=== PATIENT | female | born 1935 | race Caucasian/White ===

== ENCOUNTER 2016-09-27 20:43 | Observation (INO) | payer MEDICARE ==
[~2016-09-27] VITALS: Ht 157.5 cm; Wt 52.0 kg
[~2016-09-27 20:43] MED LIST: ASPI81 PO; CRES10TA PO; FLUO-1 PO; IRON28TA2 PO; ISOS10TA35 PO; NOVONP2 SQ; PROP60CA PO; PROT40IN PO; SUCR1TAB PO; VITA400C28 PO; VITA500T49 PO
[2016-09-27 20:44] VITALS: BP 180/87; PULSE 65; RESP 16; TEMP 97.9; O2SAT 99
[2016-09-27 20:50] VITALS: BP 188/86; PULSE 64; RESP 18; O2SAT 97
[2016-09-27] MEDS ORDERED: SODIUM CHLORIDE 0.9% FLUSH 5 ML FLUSH IVF PRN (21:15)
--- NOTE | 2016-09-27 21:47 | RADRPT ---
EXAM DATE/TIME: 09/27/2016 21:30 [facility] COMPARISON: CHEST SINGLE AP, August 24, 2012, 11:34. INDICATIONS : Syncopal episode. Patient fell. MEDICAL HISTORY : None. SURGICAL HISTORY : None. ENCOUNTER: Initial ACUITY: 1 day PAIN SCORE: 0/10 LOCATION: chest FINDINGS: A single view of the chest demonstrates the lungs to be symmetrically aerated without evidence of mas s, infiltrate or effusion. The cardiomediastinal contours are unremarkable. Osseous structures are intact. CONCLUSION: No acute disease. Navarro Mon MD on September 27, 2016 at 21:46 Board Certified Radiologist. This report was verified electronically.
--- NOTE | 2016-09-27 21:48 | RADRPT ---
EXAM DATE/TIME: 09/27/2016 21:31 [facility] COMPARISON: No previous studies available for comparison. INDICATIONS : Syncopal episode. Patient complains of pelvic pain. MEDICAL HISTORY : None. SURGICAL HISTORY : None. ENCOUNTER: Initial ACUITY: 1 day PAIN SCORE: 7/10 LOCATION: Pelvis FINDINGS: There is osteoarthritis of both hips left greater right. Aortic and iliac artery calcifications are s een. Diffuse decreased bone density. No obvious fractures. CONCLUSION: No acute disease. Navarro Mon MD on September 27, 2016 at 21:46 Board Certified Radiologist. This report was verified electronically.
[2016-09-27 22:02] LABS: AUTOMATED NEUTROPHIL # 4.9 TH/MM3 (1.8-7.7); BASOPHIL # 0.1 TH/MM3 (0-0.2); BASOPHIL % 0.8 % (0.0-2.0); EOSINOPHIL # 0.4 TH/MM3 (0-0.4); EOSINOPHIL % 5.2 % (0.0-4.0); HEMATOCRIT 39.5 % (35.0-46.0); HEMO FLAGS DIFF FINAL; LYMPH % 18.2 % (9.0-44.0); LYMPHOCYTE # 1.3 TH/MM3 (1.0-4.8); MEAN CELL VOLUME 92.6 FL (80.0-100.0); MEAN CORPUSCULAR HEMOGLOBIN 31.2 PG (27.0-34.0); MEAN CORPUSCULAR HGB CONC 33.7 % (32.0-36.0); MONO % 7.3 % (0.0-8.0); NEUT % 68.5 % (16.0-70.0); PLATELET COUNT 198 TH/MM3 (150-450); RED BLOOD COUNT 4.27 MIL/MM3 (4.00-5.30); RED CELL DISTRIBUTION WIDTH 13.4 % (11.6-17.2); WHITE BLOOD COUNT 7.2 TH/MM3 (4.0-11.0)
--- NOTE | 2016-09-27 22:05 | RADRPT ---
EXAM DATE/TIME: 09/27/2016 21:47 [facility] COMPARISON: CT BRAIN W/O CONTRAST, August 24, 2012, 14:24. INDICATIONS : Trauma; fall. RADIATION DOSE: 56.35 CTDIvol (mGy) MEDICAL HISTORY : Cerebrovascular disease. Cardiovascular disease Renal failure, chronic.Hypertension. Diabetes. SURGICAL HISTORY : Cholecystectomy. ENCOUNTER: Initial ACUITY: 1 day PAIN SCALE: 0/10 LOCATION: neck TECHNIQUE: Multiple contiguous axial images were obtained of the head. Using automated exposure control and adj ustment of the mA and/or kV according to patient size, radiation dose was kept as low as reasonably a chievable to obtain optimal diagnostic quality images. FINDINGS: There is mild volume loss. No evidence of acute infarct, hemorrhage, or mass. No fractures are seen. CONCLUSION: No acute disease. Navarro Mon MD on September 27, 2016 at 22:03 Board Certified Radiologist. This report was verified electronically.
--- NOTE | 2016-09-27 22:11 | RADRPT ---
EXAM DATE/TIME: 09/27/2016 21:47 [facility] COMPARISON: No previous studies available for comparison. INDICATIONS : Trauma; fall. RADIATION DOSE: 32.26 CTDIvol (mGy) MEDICAL HISTORY : Cerebrovascular disease. Cardiovascular disease Renal failure, chronic.Hypertension. Diabetes. SURGICAL HISTORY : Cholecystectomy. ENCOUNTER: Initial ACUITY: 1 day PAIN SCALE: 0/10 LOCATION: cranial TECHNIQUE: Volumetric scanning of the cervical spine was performed. Multiplanar reconstructions in the sagittal, coronal and oblique axial planes were performed. Using automated exposure control and adjustment o f the mA and/or kV according to patient size, radiation dose was kept as low as reasonably achievable to obtain optimal diagnostic quality images. FINDINGS: Slight anterolisthesis of C7 on T1. Multilevel facet hypertrophy and uncovertebral hypertrophy. No co mpression deformity. Odontoid process is intact. There is multilevel osteophytosis and severe disc sp fanny narrowing at C3-4, moderate disc space narrowing at C5 and severe disc space narrowing at C6-7 no reema. Mild multilevel endplate sclerosis. No fractures are seen. At C4-5 there is severe foraminal blake nosis bilaterally right greater than left with moderate canal narrowing. Mild foraminal narrowing at C5-6 and C6-7 bilaterally. Bilateral thyroid nodules are noted. CONCLUSION: Multilevel degenerative changes without evidence for acute fracture. Thyroid nodules. Navarro Mon MD on September 27, 2016 at 22:07 Board Certified Radiologist. This report was verified electronically.
[2016-09-27 22:14] LABS: APTT (PATIENT) 23.6 SEC (24.3-30.1); INTERNATIONAL NORMALIZED RATIO 0.9 RATIO
[2016-09-27] MEDS ORDERED: LISI10TA3 PO (22:25)
[2016-09-27] MEDS ORDERED: ISOS30TA3 PO (22:25)
[2016-09-27] MEDS ORDERED: PANT40TA3 PO (22:25)
[2016-09-27] MEDS ORDERED: HYDR-3583 PO (22:25)
[2016-09-27] MEDS ORDERED: FLUO40CA PO (22:25)
[2016-09-27] MEDS ORDERED: ERGO2000 PO (22:25)
[2016-09-27] MEDS ORDERED: SUCR1TAB PO (22:25)
[2016-09-27] MEDS ORDERED: TEMA15CA PO (22:25)
[2016-09-27] MEDS ORDERED: ASPI1TAB69 PO (22:26)
[2016-09-27 22:34] LABS: BLOOD, URINE NEG (NEG); GLUCOSE,URINE TRACE mg/dL (NEG); KETONE, URINE NEG (NEG); PH, URINE 5.5 (5.0-8.5); URINE COLOR COLORLESS (YELLW/STRAW)
[2016-09-27 22:40] LABS: ALKALINE PHOSPHATASE 73 U/L (45-117); ALT (GPT) 23 U/L (10-53); ANION GAP 14 MEQ/L (5-15); AST (GOT) 25 U/L (15-37); BICARBONATE 21.3 MEQ/L (21.0-32.0); BLOOD UREA NITROGEN 22 MG/DL (7-18); CHLORIDE 102 MEQ/L (98-107); CREATINE KINASE 138 U/L (26-192); GLOMERULAR FILTRATION RATE 22 ML/MIN (>89); MAGNESIUM 2.3 MG/DL (1.5-2.5); POTASSIUM 4.4 MEQ/L (3.5-5.1); SODIUM (NA) 137 MEQ/L (136-145); TOTAL BILIRUBIN ADULT 0.3 MG/DL (0.2-1.0)
[2016-09-27 22:53] LABS: CKMB 2.7 NG/ML (0.5-3.6)
[2016-09-27 22:59] LABS: NITRITE,URINE POS (NEG)
[2016-09-27 23:01] LABS: BACTERIA, URINE MANY /hpf; COMMENT (UR) CULTURE INDICATED; CULTURE IF INDICATED CULTURE INDICATED; SQUAMOUS EPITHELIAL CELL URINE 0-5 /hpf (0-5); WBC, URINE 0-2 /hpf (0-5)
--- NOTE | 2016-09-27 23:06 | PD ---
HPI Chief Complaint: Fall Time Seen by Provider: 21:14 Travel History International Travel<30 days: No Contact w/Intl Traveler<30days: No Traveled to known affect area: No History of Present Illness HPI 80 y/o female presents status post syncopal episode. Her son have been outside for about 20 minutes when he came and found her on the ground. The patient does not recall any of the episode. She denies any specific pain. History is limited given patient does not recall episode and it was unwitnessed. PFSH Past Medical History Hx Anticoagulant Therapy: Yes (ASPIRIN) Arthritis: No Anxiety: Yes Depression: Yes Heart Rhythm Problems: No Cancer: No Cardiovascular Problems: Yes High Cholesterol: Yes Chest Pain: Yes Congestive Heart Failure: No Cerebrovascular Accident: Yes Diabetes: Yes (INSULIN) Patient Takes Glucophage: No Diminished Hearing: No Endocrine: Yes Gastrointestinal Disorders: Yes Genitourinary: Yes Headaches: Yes Hypertension: Yes Musculoskeletal: No Neurologic: No Psychiatric: Yes Reproductive: No Respiratory: No Migraines: No Pneumonia: Yes Renal Failure: Yes Seizures: No Thyroid Disease: No Ulcer: Yes Tetanus Vaccination: Unknown Influenza Vaccination: No ?: Not Menopausal: Yes : 4 Para: 3 Miscarriage: 1 Past Surgical History Abdominal Surgery: Yes (STOMACH BYPASS SURGERY) Cardiac Surgery: Yes (STENT TO HEART MAY 2012) Cholecystectomy: Yes Ear Surgery: No Endocrine Surgery: No Eye Surgery: No Genitourinary Surgery: No Gynecologic Surgery: No Oral Surgery: No Thoracic Surgery: No Other Surgery: Yes (HEART CATH WITH STENT PLACED, HERNIA (RIGHT) REPAIR) Social History Alcohol Use: Yes (DAILY) Tobacco Use: No Substance Use: No Allergies-Medications (Allergen,Severity, Reaction): Coded Allergies: Codeine (Verified Allergy, Severe, "MAKES HER MEAN", 09/27/16) E-Mycin (Verified Allergy, Severe, Itching, 09/27/16) Morphine (Verified Allergy, Severe, ITCHING, 09/27/16) Reported Meds & Prescriptions Reported Meds & Active Scripts Active Reported Lantus Inj (Insulin Glargine) 1,000 Unit/10 Ml Vial 5 Units SQ HS Lantus Inj (Insulin Glargine) 1,000 Unit/10 Ml Vial 5 Units SQ AC BREAKFAST Aspirin 81 Mg Tabdr 81 Mg PO DAILY Lisinopril 10 Mg Tab 10 Mg PO DAILY Hydrocodone-Acetaminophen 10-325 mg Tab 1 Tab PO BID PRN Temazepam 15 Mg Cap 15 Mg PO HS PRN Pantoprazole (Pantoprazole Sodium) 40 Mg Tab 40 Mg PO DAILY Vitamin D2 (Ergocalciferol) 2,000 Unit Tab 50,000 Units PO WEEKLY Isosorbide Mononitrate ER (Isosorbide Mononitrate) 30 Mg Maldonado 30 Mg PO DAILY Fluoxetine (Fluoxetine HCl) 40 Mg Cap 40 Cap PO DAILY Sucralfate 1 Gm Tab 1 Gm PO BID on empty stomach Review of Systems Except as stated in HPI: all other systems reviewed are Neg Physical Exam Narrative General: 80 y/o patient in no apparent distress Skin: Warm and dry NECK: Trachea midline Cardiovascular: Regular rate and rhythm Respiratory: Normal respiratory effort noted, clear to auscultation bilaterally Abdomen: soft, nontender, nondistended Extremities: No pain over main joints Neuro: awake, moves all extremities, clear speech Data Data Last Documented VS Vital Signs Date Time Temp Pulse Resp B/P Pulse Ox O2 Delivery O2 Flow Rate FiO2 09/27/16 20:50 64 09/27/16 20:50 18 188/86 97 Room Air 09/27/16 20:44 97.9 Orders Electrocardiogram (09/27/16 21:13) Complete Blood Count With Diff (09/27/16 21:13) Comprehensive Metabolic Panel (09/27/16 21:13) Magnesium (Mg) (09/27/16 21:13) Ckmb (Isoenzyme) Profile (09/27/16 21:13) Troponin I (09/27/16 21:13) Act Partial Throm Time (Ptt) (09/27/16 21:13) Prothrombin Time / Inr (Pt) (09/27/16 21:13) Urinalysis - C+S If Indicated (09/27/16 21:13) Chest, Single Ap (09/27/16 21:13) Ecg Monitoring (09/27/16 21:13) Iv Access Insert/Monitor (09/27/16 21:13) Oximetry (09/27/16 21:13) Sodium Chloride 0.9% Flush (Ns Flush) (09/27/16 21:15) Pelvis, Ap Only (Routine) (09/27/16 21:20) Ct Brain W/O Iv Contrast(Rout) (09/27/16 21:20) Ct Cerv Spine W/O Contrast (09/27/16 21:20) CKMB (09/27/16 21:30) CKMB% (09/27/16 21:30) Urine Culture (09/27/16 21:30) Ceftriaxone Inj (Rocephin Inj) (09/27/16 23:15) Admit Order (Ed Use Only) (09/27/16 23:37) Labs Laboratory Tests Test 09/27/16 21:30 White Blood Count 7.2 TH/MM3 Red Blood Count 4.27 MIL/MM3 Hemoglobin 13.3 GM/DL Hematocrit 39.5 % Mean Corpuscular Volume 92.6 FL Mean Corpuscular Hemoglobin 31.2 PG Mean Corpuscular Hemoglobin 33.7 % Concent Red Cell Distribution Width 13.4 % Platelet Count 198 TH/MM3 Mean Platelet Volume 8.6 FL Neutrophils (%) (Auto) 68.5 % Lymphocytes (%) (Auto) 18.2 % Monocytes (%) (Auto) 7.3 % Eosinophils (%) (Auto) 5.2 % Basophils (%) (Auto) 0.8 % Neutrophils # (Auto) 4.9 TH/MM3 Lymphocytes # (Auto) 1.3 TH/MM3 Monocytes # (Auto) 0.5 TH/MM3 Eosinophils # (Auto) 0.4 TH/MM3 Basophils # (Auto) 0.1 TH/MM3 CBC Comment DIFF FINAL Differential Comment Prothrombin Time 10.0 SEC Prothromb Time International 0.9 RATIO Ratio Activated Partial 23.6 SEC Thromboplast Time Urine Color COLORLESS Urine Turbidity CLEAR Urine pH 5.5 Urine Specific [place] 1.004 Urine Protein NEG mg/dL Urine Glucose (UA) TRACE mg/dL Urine Ketones NEG mg/dL Urine Occult Blood NEG Urine Nitrite POS Urine Bilirubin NEG Urine Urobilinogen LESS THAN 2.0 MG/DL Urine Leukocyte Esterase NEG Urine WBC 0-2 /hpf Urine Squamous Epithelial 0-5 /hpf Cells Urine Bacteria MANY /hpf Microscopic Urinalysis Comment CULTURE INDICATED Sodium Level 137 MEQ/L Potassium Level 4.4 MEQ/L Chloride Level 102 MEQ/L Carbon Dioxide Level 21.3 MEQ/L Anion Gap 14 MEQ/L Blood Urea Nitrogen 22 MG/DL Creatinine 2.17 MG/DL Estimat Glomerular Filtration 22 ML/MIN Rate Random Glucose 217 MG/DL Calcium Level 8.0 MG/DL Magnesium Level 2.3 MG/DL Total Bilirubin 0.3 MG/DL Aspartate Amino Transf 25 U/L (AST/SGOT) Alanine Aminotransferase 23 U/L (ALT/SGPT) Alkaline Phosphatase 73 U/L Total Creatine Kinase 138 U/L Creatine Kinase MB 2.7 NG/ML Troponin I LESS THAN 0.02 NG/ML Total Protein 6.3 GM/DL Albumin 3.2 GM/DL MDM Medical Decision Making Medical Screen Exam Complete: Yes Emergency Medical Condition: Yes Medical Record Reviewed: Yes (past history confirmed) Interpretation(s) CBC & BMP Diagram 09/27/16 21:30 Last 24 hours Impressions Pelvis X-Ray 09/27/[id number] Signed Impressions: Service Date/Time: Tuesday, September 27, 2016 21:31 - CONCLUSION: No acute disease. Navarro Mon MD Head CT 09/27/[id number] Signed Impressions: Service Date/Time: Tuesday, September 27, 2016 21:47 - CONCLUSION: No acute disease. Navarro Mon MD Cervical Spine CT [id number]/27/[id number] Signed Impressions: Service Date/Time: Tuesday, September 27, 2016 21:47 - CONCLUSION: Multilevel degenerative changes without evidence for acute fracture. Thyroid nodules. Navarro Mon MD Chest X-Ray 09/27/[id number] Signed Impressions: Service Date/Time: Tuesday, September 27, 2016 21:30 - CONCLUSION: No acute disease. Navarro Mon MD ua with uti Differential Diagnosis Fracture, strain, sprain, anemia, vasovagal.... Narrative Course Will check blood work, imaging and reevaluate ed workup with possible uti, will dose with rocephin and admit for further workup Physician Communication Physician Communication [facility] states to admit under dr teixeira Diagnosis Primary Impression: Syncope Qualified Code: R55 - Syncope, unspecified syncope type Additional Impression: UTI (urinary tract infection) Qualified Code: N39.0 - Urinary tract infection without hematuria, site unspecified Admitting Information Admitting Physician Requests: Laura Akhtar MD Sep 27, 2016 23:06
[2016-09-27] MEDS ORDERED: cefTRIAXone INJ 1,000 MG in SODIUM CHLORIDE 0.9% INJ 100 ML IV ONE (23:15)
[2016-09-27] MEDS ORDERED: LANTUS2P SQ ×2 (23:15→23:16)
[2016-09-27 23:45] VITALS: O2SAT 99
[2016-09-27 23:48] VITALS: BP 127/57; PULSE 63; RESP 18; O2SAT 100
[2016-09-28] VITALS (10 sets, daily range): BP systolic 133–197; BP diastolic 63–102; PULSE 57–70; RESP 17–18; TEMP 97.4–98.7; O2SAT 95–98
[2016-09-28] MEDS ORDERED: GLUCAGON 1 MG/ML VIAL OTHER PRN
[2016-09-28] MEDS ORDERED: SODIUM CHLORIDE 0.9% FLUSH 5 ML FLUSH IV PRN
[2016-09-28] MEDS ORDERED: DEXTROSE 50% IN WATER 50 ML VIAL(D50) IV PUSH PRN
[2016-09-28] MEDS: SODIUM CHLOR 0.9% 1000 ML INJ 1,000 ML IV SCH ×2 (02:06→23:17)
[2016-09-28 06:15] LABS: BICARBONATE 25.9 MEQ/L (21.0-32.0); POTASSIUM 4.3 MEQ/L (3.5-5.1)
[2016-09-28] MEDS: INSULIN ASPART SUPPLEMENTAL SCALE SQ SCH ×4 (06:34→21:24)
[2016-09-28] MEDS: ISOSORBIDE MONONITRATE 30 MG TAB PO SCH (06:34)
[2016-09-28] MEDS: SUCRALFATE 1 GM TAB PO SCH ×2 (06:34→16:19)
[2016-09-28] MEDS: PANTOPRAZOLE SOD 40 MG DELAYED RELEASE TAB PO SCH (09:31)
[2016-09-28] MEDS: LISINOPRIL 10 MG TAB PO SCH (09:31)
[2016-09-28] MEDS: ASPIRIN EC 81 MG TABEC PO SCH (09:31)
[2016-09-28] MEDS: SODIUM CHLORIDE 0.9% FLUSH 5 ML FLUSH IV SCH ×2 (09:32→21:00)
[2016-09-28] MEDS: FLUoxetine HCL 20 MG CAP PO SCH (09:32)
--- NOTE | 2016-09-28 09:32 | RADRPT ---
EXAM DATE/TIME: 09/28/2016 08:24 [facility] COMPARISON: US CAROTID ARTERIES, August 24, 2012, 18:28. INDICATIONS : Syncope. MEDICAL HISTORY : Stroke. Hypercholesterolemia. Hypertension. Ulcer. Pneumonia. Diabetes. Liver disease. Renal failure. SURGICAL HISTORY : Coronary artery stent. Cholecystectomy. Hernia repair. ENCOUNTER: Subsequent ACUITY: 1 day PAIN SCORE: 4/10 LOCATION: Bilateral neck PEAK SYSTOLIC VELOCITIES (cm/sec): ICA/CCA RATIO: Right: 0.9 Left: 1.0 ICA: Right: 74 Left: 87 CCA: Right: 85 Left: 83 ECA: Right: 77 Left: 86 VERTEBRAL: Right: 55 antegrade Left: 18 antegrade Elevated flow velocities and ICA/CCA ratios have been found to correlate with increased degrees of vessel stenosis, calculated as percentage of diameter relative to a normal segment of distal ICA/CCA FINDINGS: RIGHT CAROTID: No significant stenosis is visualized. There is mild calcified and noncalcified plaque in the caroti d bulb. The waveforms are within normal limits. LEFT CAROTID: No significant stenosis is visualized. There is mild calcified and noncalcified plaque in the caroti d bulb. The waveforms are within normal limits. VERTEBRAL ARTERIES: Antegrade flow is seen in both vertebral arteries. MISCELLANEOUS: None. CONCLUSION: 1. Mild atherosclerotic disease in the carotid bulbs. However, no significant stenosis is identified within either internal carotid artery. 2. There is antegrade flow within both vertebral arteries. Troy Ibarra MD on September 28, 2016 at 9:29 Board Certified Radiologist. This report was verified electronically.
[2016-09-28] MEDS ORDERED: cloNIDine HCL 0.1 MG TAB PO PRN (09:45)
--- NOTE | 2016-09-28 10:35 | MH ---
DATE OF ADMISSION: 09/27/2016 CHIEF COMPLAINT Dizziness, status post fall. HISTORY OF PRESENT ILLNESS The patient is a very pleasant 80-year-old female who presented to the ER status post syncopal episode. Her son had been outside for about 20 minutes when he came and found her on the ground. The patient does not recall any of the episodes. Per patient she has been feeling dizzy since the first or the second week of July when she had an episode of headache starting in the back and radiating to the front. Denies any CP/SOB/NVD. PAST MEDICAL HISTORY 1. Anxiety. 2. Hyperlipidemia. 3. History of CVA. 4. Insulin dependent diabetes mellitus. 5. Headaches. 6. Hypertension. 7. Coronary artery disease, status post stent in May of 2012. PAST SURGICAL HISTORY 1. Stomach bypass surgery. 2. Cardiac stent in May 2012. 3. Cholecystectomy. 4. Right hernia repair. SOCIAL HISTORY Drinks alcohol everyday. Denies any tobacco or substance use. ALLERGIES CODEINE, ERYTHROMYCIN, MORPHINE. MEDICATION Current medications: 1. Lantus. 2. Aspirin. 3. Lisinopril. 4. Hydrocodone/acetamenophen. 5. Temazepam. 6. Pantoprazole. 7. Vitamin D2. 8. Isosorbide mononitrate ER. 9. Fluoxetine. 10. Sucralfate. REVIEW OF SYSTEMS Positive for headache, dizziness. Denies any chest pain or shortness of breath. Denies any blurring of vision or palpitations. Denies any abdominal pain, nausea, vomiting or diarrhea. Denies any focal deficits. PHYSICAL EXAMINATION GENERAL: A 80-year-old white female who is lying in bed, in no apparent distress. SKIN: Warm and dry. NECK: Supple. Trachea is midline. No JVD. No carotid bruit. CARDIOVASCULAR: S1, S2. Heart is regular rate and rhythm. No murmur, no gallop. RESPIRATORY: Normal respiratory effort noted. Clear to auscultation bilaterally. No wheezes or rales. ABDOMEN: Soft, nontender, nondistended. Bowel sounds heard in all four quadrants. No organomegaly. EXTREMITIES: No cyanosis/congestion or edema. The patient is able to move all the extremities. NEURO: Awake and alert, clear speech. Cranial nerves II-XII grossly intact. No focal deficits. PSYCHIATRIC: Mood is appropriate. VITAL SIGNS: Blood pressure 168/78, pulse is 66, respirations are 18, pulse ox is 97% on room air. LABORATORY DATA WBC 7.2, hemoglobin 13.3, hematocrit 39.5, platelets 198,000. Urinalysis positive for nitrites, many bacteria, culture pending. Sodium 137, potassium 4.4, BUN 22, creatinine 2.17, AST 25, ALT 23, troponin-I less than 0.02. IMAGING STUDIES X-ray of the pelvis shows no acute disease. CT of the head without contrast shows no acute disease. Her vital sign CT shows multilevel degenerative change without evidence of acute fracture. Chest x-ray shows no acute disease. PendinD echo and ultrasound of the carotids. DIAGNOSTIC IMPRESSION AND PLAN 1. Syncope. 2. Urinary tract infection. 3. Headaches. 4. Hypertension. 5. Insulin-dependent diabetes mellitus. 6. Generalized anxiety disorder. 7. Hyperlipidemia. 8. Gastroesophageal reflux disease. 9. Alcohol use beyond sensible limits. PLAN Will admit the patient under observation. Will start the patient on IV fluids. Will start the patient on Rocephin. Will check urine cultures. Will also check blood cultures. Will request a neurology consult. As she has a h/o coronary artery disease will request cardiology consult to rule out any cardiac etiology for her syncope. The patient has been advised to cutdown on her alcohol consumption. We will also check B12 levels and folate levels. Will monitor CBC and BMP closely. Will also check TSH and free T4. Will monitor the patient closely during the hospital stay. Further management depends upon the hospital course. Moises Marcus MD [facility]INIC[facility]a
[2016-09-28] MEDS ORDERED: LORazepam 2 MG/ML VIAL IV PUSH PRN (12:45)
[2016-09-28 12:53] LABS: BICARBONATE 28.9 MEQ/L (21.0-32.0); POTASSIUM 4.8 MEQ/L (3.5-5.1)
[2016-09-28 13:17] LABS: FREE T4 1.01 NG/DL (0.76-1.46)
--- NOTE | 2016-09-28 13:58 | MB ---
cc: DEBO HONG M.D. DATE OF CONSULTATION: 09/28/2016 REASON FOR CONSULTATION: Syncope. HISTORY OF PRESENT ILLNESS: Ms. Sierra is a very nice 80-year-old woman who had an episode of loss of consciousness yesterday. Her son came and found her on the ground after about 20 minutes. She is unsure for how long she was unconscious. Apparently the actual event was not witnessed so it is unclear as to whether or not she had tonic-clonic activity. Nonetheless, she had no warning signs. No chest pain or palpitations. When she came-to, she was very confused, does not recall any events thereafter and does not recall being brought to the emergency room. She does relate she drinks alcohol on a daily basis several beers a day and yesterday had three beers. Denies chest pain or palpitations. Never had any seizures in the past. PAST MEDICAL HISTORY: 1. She has a history of insulin-dependent diabetes. 2. History of stroke in the past. 3. Anxiety. 4. Stomach bypass surgery. 5. Cardiac stent in the past. 6. Cholecystectomy. SOCIAL HISTORY: She does drink alcohol daily. Does not smoke. ALLERGIES: 1. CODEINE. 2. E-MYCIN. 3. MORPHINE. MEDICINES AT HOME: 1. Lantus insulin. 2. Aspirin 81 milligrams daily. 3. Lisinopril. 4. Hydrocodone. 5. Temazepam. 6. Pantoprazole. 7. Vitamin D. 8. Fluoxetine. 9. Sucralfate. NEUROLOGICAL EXAMINATION: VITAL SIGNS: Blood pressure is 189/84 supine, standing 191/102, pulse is 69, respiratory rate is 18, temperature is 97 degrees. Higher cortical functions are normal. Cranial nerves II through XII are normal in detail. On motor exam, she has 5/5 strength of all groups. She has a mild resting tremor of the left arm. Reflexes are symmetric. IMAGING STUDIES: CT of the brain is unremarkable for age. CT cervical spine: Spondylosis but no fracture. Carotid ultrasound: No significant stenosis is identified. LABORATORY DATA: White count 7200, hemoglobin 13.3, hematocrit 39.5%, platelet count 198,000. Sodium is 145, potassium 4.3, chloride 111, CO2 25.9, the BUN is 20, creatinine 1.8, GFR is 27, glucose 100. TSH is pending. B12 pending. PT 10, INR 0.9, APTT 23.6. IMPRESSION: Episode of loss of consciousness. The history suggests that this might have been a seizure given the fact that she was confused thereafter and not recalling being brought to the emergency room that would suggest the possibility of a postictal state, rule out alcohol-related seizure. RECOMMENDATIONS: 1. We will obtain an MRI of the brain as well as an EEG for further evaluation. 2. Place her under seizure precautions. 3. I would not recommend anticonvulsant therapy unless the EEG were positive for epileptiform discharges. 4. I did parliamentary counsel the patient and advised her to strongly to DC alcohol. MD REGINA Infante/TOBI /12:37 PM /1:50 PM
--- NOTE | 2016-09-28 14:34 | EC ---
Study Study Date:09/28/2016 STUDY CONCLUSIONS SUMMARY LEFT VENTRICLE: The cavity size was normal. Wall thickness was normal. Systolic function was normal. The estimated ejection fraction was in the range of 55% to 60%. Wall motion was normal; there were no regional wall motion abnormalities. If LV function is below 40, please consider prescribing an ACEI or ARB or document rationale for non-use. PROCEDURE DATA STUDY STATUS: Elective. Procedure: Transthoracic echocardiography. Image quality was good. Scanning was performed from the parasternal, apical, and subcostal acoustic windows. Study completion: The patient tolerated the procedure well. Transthoracic echocardiography. M-mode, complete 2D, complete spectral Doppler, and color Doppler. Patient status: Inpatient. CARDIAC ANATOMY LEFT VENTRICLE: The cavity size was normal. Wall thickness was normal. Systolic function was normal. The estimated ejection fraction was in the range of 55% to 60%. Wall motion was normal; there were no regional wall motion abnormalities. AORTIC VALVE: Trileaflet; normal thickness leaflets. Doppler: Transvalvular velocity was within the normal range. There was no stenosis. No regurgitation. AORTA: Aortic root: The aortic root was normal in size. MITRAL VALVE: Structurally normal valve. Doppler: Transvalvular velocity was within the normal range. There was no evidence for stenosis. Trace regurgitation. LEFT ATRIUM: The atrium was normal in size. RIGHT VENTRICLE: The cavity size was normal. Wall thickness was normal. PULMONIC VALVE: Doppler: Transvalvular velocity was within the normal range. There was no evidence for stenosis. No regurgitation. TRICUSPID VALVE: Structurally normal valve. Doppler: Transvalvular velocity was within the normal range. No regurgitation. PULMONARY ARTERY: The main pulmonary artery was normal-sized. Systolic pressure was within the normal range. RIGHT ATRIUM: The atrium was normal in size. PERICARDIUM: There was no pericardial effusion. SYSTEMIC VEINS: Inferior vena cava: The vessel was normal in size. BASIC MEASUREMENTS ADULT NORMAL Left ventricle LV internal dimension, ED, chordal level, *35.9 mm 43-52 PLAX LV internal dimension, ES, chordal level, 27 mm 23-38 PLAX Fractional shortening, chordal level, PLAX *25 % >29 LV posterior wall thickness, ED 8.41 mm IVS/LVPW ratio, ED 1.2 <1.3 Ventricular septum Septal thickness, ED 10.1 mm Aortic valve Leaflet separation 20 mm 15-26 Right ventricle RV internal dimension, ED, PLAX 24.4 mm 19-38 BASIC MEASUREMENTS ADULT NORMAL Aortic valve Leaflet separation 20 mm 15-26 Aorta Root diameter, ED 29 mm 20-37 Left atrium Anterior-posterior dimension, ES 32 mm 19-40 LA/aortic root ratio 1.1 DOPPLER MEASUREMENTS ADULT NORMAL Mitral valve Peak E-wave velocity 68.6 cm/s Peak A-wave velocity 87.9 cm/s Peak E/A ratio 0.8 LEGEND: Mean values are shown as u=mean value. Asterisk (*) caro values outside specified normal range. Prepared and signed by Ana Tran [id number]
--- NOTE | 2016-09-28 14:37 | RADRPT ---
EXAM DATE/TIME: 09/28/2016 14:13 [facility] COMPARISON: CT BRAIN W/O CONTRAST, September 27, 2016, 21:47. MRI BRAIN W/O CONTRAST, August 24, 2012, 20:46. INDICATIONS : Seizures. MEDICAL HISTORY : Hypertension. Diabetes mellitus type 2. Hypercholesterolemia. SURGICAL HISTORY : Gastric bypass. Discectomy, lumbar. Inguinal hernia repair. ENCOUNTER: Initial ACUITY: 1 day PAIN SCORE: 0/10 LOCATION: cranial TECHNIQUE: Multiplanar, multisequence MRI of the brain was performed without contrast. FINDINGS: CEREBRUM: There is mild cerebral atrophy. Ventricles are normal in size. No evidence of midline shift, mass le neisha, hemorrhage or acute infarction. No extraaxial fluid collections are seen. The pituitary gland and suprasellar cistern are normal in configuration. WHITE MATTER: There is stable mild periventricular white matter signal change with a stable area of focal subcortic al white matter signal change in the left centrum semiovale. POSTERIOR FOSSA: The cerebellum and brainstem demonstrate no acute finding. The 4th ventricle is midline. The cerebel lopontine angle is unremarkable. The cerebellar tonsils are normal in position. DIFFUSION IMAGING: No focal areas of restricted diffusion are seen. No evidence of acute infarction. EXTRACRANIAL: The visualized portions of the orbits and paranasal sinuses are unremarkable. CONCLUSION: 1. Stable noncontrast brain MRI. No acute finding is identified. 2. Chronic changes include mild cerebral atrophy and periventricular white matter low attenuation nic racteristic of chronic microvascular ischemia. Troy Ibarra MD on September 28, 2016 at 14:32 Board Certified Radiologist. This report was verified electronically.
--- NOTE | 2016-09-28 18:08 | EKG ---
Date Performed: 09/27/2016 Time Performed: 20:52:38 PTAGE: 80 years EKG: Sinus rhythm WITH FIRST DEGREE AV BLOCK POSSIBLE LEFT ATRIAL ENLARGEMENT ANTEROSEPTAL MYOCARDIAL INFARCTION CONSI JAMIL ANTEROSEPTAL MD - AGE UNDETERMINATE POOR R-WAVE PROGRESSION ABNORMAL ECG PREVIOUS TRACING : 08/24/2012 23.18 DOCTOR: Tyler Serna Interpretating Date/Time 09/28/2016 18:05:43
[2016-09-28] MEDS ORDERED: INSULIN DETEMIR 100 UNITS/ML VIAL SQ SCH (21:00)
[2016-09-28] MEDS ORDERED: cefTRIAXone INJ 1,000 MG in SODIUM CHLORIDE 0.9% INJ 100 ML IV SCH (23:00)
[2016-09-29 00:08] VITALS: BP 148/65; PULSE 74; O2SAT 97
[2016-09-29 04:23] VITALS: BP 151/69; PULSE 78; O2SAT 96
[2016-09-29 05:17] LABS: AUTOMATED NEUTROPHIL # 5.4 TH/MM3 (1.8-7.7); BASOPHIL # 0.1 TH/MM3 (0-0.2); BASOPHIL % 0.7 % (0.0-2.0); EOSINOPHIL # 0.3 TH/MM3 (0-0.4); EOSINOPHIL % 3.7 % (0.0-4.0); HEMATOCRIT 35.6 % (35.0-46.0); HEMO FLAGS DIFF FINAL; LYMPH % 15.9 % (9.0-44.0); LYMPHOCYTE # 1.2 TH/MM3 (1.0-4.8); MEAN CELL VOLUME 91.9 FL (80.0-100.0); MEAN CORPUSCULAR HGB CONC 33.8 % (32.0-36.0); MONO % 6.8 % (0.0-8.0); NEUT % 72.9 % (16.0-70.0); PLATELET COUNT 171 TH/MM3 (150-450); RED BLOOD COUNT 3.87 MIL/MM3 (4.00-5.30); RED CELL DISTRIBUTION WIDTH 13.5 % (11.6-17.2); WHITE BLOOD COUNT 7.4 TH/MM3 (4.0-11.0)
[2016-09-29] MEDS: INSULIN ASPART SUPPLEMENTAL SCALE SQ SCH ×3 (06:16→16:00)
[2016-09-29] MEDS: ISOSORBIDE MONONITRATE 30 MG TAB PO SCH (06:17)
[2016-09-29] MEDS: SUCRALFATE 1 GM TAB PO SCH ×2 (06:17→17:57)
[2016-09-29 07:30] VITALS: PULSE 64
[2016-09-29 07:36] VITALS: BP 132/74; PULSE 63; RESP 18; TEMP 97.7; O2SAT 97
--- NOTE | 2016-09-29 08:11 | HHI.PR ---
Subjective Subjective Remarks awake, oriented x 3 asking if she is leaving today c/o chest pressure, anxiety no sob no fever no seizure no lightheadedness feels shameful about her drinking and understands she has to quit admits she has memory deficits Review of Systems Constitutional Constitutional Remarks 12 point ROS completed, negative except as noted above Vitals/Results Intake & Output 09/28/16 09/28/16 09/29/16 15:00 23:00 07:00 Intake Total 600 ml Balance 600 ml Intake IV Total 600 ml # Voids 2 Vital Signs Vital Signs Date Time Temp Pulse Resp B/P Pulse Ox O2 Delivery O2 Flow Rate FiO2 09/29/16 07:36 97.7 63 18 132/74 97 09/29/16 04:23 78 151/69 96 09/29/16 00:08 74 148/65 97 09/28/16 20:07 70 09/28/16 19:35 98.2 68 133/63 98 145/70 146/68 09/28/16 16:10 97.6 65 17 134/63 98 09/28/16 13:05 97.9 09/28/16 12:59 61 18 135/68 98 09/28/16 11:00 69 189/84 186/87 191/102 CBC/BMP: 09/29/16 0440 09/28/16 1144 Lab Results Laboratory Tests Test 09/28/16 09/29/16 11:44 04:40 Sodium Level 143 MEQ/L Potassium Level 4.8 MEQ/L Chloride Level 107 MEQ/L Carbon Dioxide Level 28.9 MEQ/L Anion Gap 7 MEQ/L Blood Urea Nitrogen 22 MG/DL Creatinine 1.88 MG/DL Estimat Glomerular Filtration 26 ML/MIN Rate Random Glucose 236 MG/DL Calcium Level 8.3 MG/DL Vitamin B12 Level 404 PG/ML Free Thyroxine 1.01 NG/DL Thyroid Stimulating Hormone 1.170 uIU/ML 3rd Gen White Blood Count 7.4 TH/MM3 Red Blood Count 3.87 MIL/MM3 Hemoglobin 12.0 GM/DL Hematocrit 35.6 % Mean Corpuscular Volume 91.9 FL Mean Corpuscular Hemoglobin 31.0 PG Mean Corpuscular Hemoglobin 33.8 % Concent Red Cell Distribution Width 13.5 % Platelet Count 171 TH/MM3 Mean Platelet Volume 8.2 FL Neutrophils (%) (Auto) 72.9 % Lymphocytes (%) (Auto) 15.9 % Monocytes (%) (Auto) 6.8 % Eosinophils (%) (Auto) 3.7 % Basophils (%) (Auto) 0.7 % Neutrophils # (Auto) 5.4 TH/MM3 Lymphocytes # (Auto) 1.2 TH/MM3 Monocytes # (Auto) 0.5 TH/MM3 Eosinophils # (Auto) 0.3 TH/MM3 Basophils # (Auto) 0.1 TH/MM3 CBC Comment DIFF FINAL Differential Comment Microbiology Microbiology 09/28/16 Aerobic Blood Culture, Received Pending 09/28/16 Anaerobic Blood Culture, Received Pending 09/28/16 Aerobic Blood Culture, Received Pending 09/28/16 Anaerobic Blood Culture, Received Pending Physical Exam General General Appearance: Well Developed, Well Nourished, No Acute Distress, Comfortable Eyes Eye Exam: Pupils Equal, Pupils Reactive Ears & Nose Ears & Nose Exam: Nasal Mucosa [place] Throat Throat Exam: Oral Mucosa [place] & Moist Neck Neck Exam: Neck Supple, Trachea Midline Pulmonary Resp Exam: Clear Bilaterally, No Distress Cardiology CV Exam: Regular, Irregular Gastrointestinal/Abdomen GI Exam: Soft, Non-Tender, Bowel Sounds Present, Non-Distended Musculoskeletal MS Exam: Joints Intact Integumentary Skin Exam: Clear, Warm, Dry Extremeties Extremities Exam: No Edema, Pedal Pulses Palpable Neurologic Neuro Exam: Alert, Awake, Oriented, Speech Clear, Moving All Extremities, No Focal Deficits Psychiatric Psych Exam: Appropriate Responses VTE Prophylaxis VTE Prophylaxis Device: SCDs Assessment/Plan Assessment/Plan 1. Syncope, poss. seizure 2. Urinary tract infection. 3. Headaches. 4. Hypertension. 5. Insulin-dependent diabetes mellitus. 6. Generalized anxiety disorder. 7. Hyperlipidemia. 8. Gastroesophageal reflux disease. 9. Alcohol use beyond sensible limits. 10. Memory deficits 11. CKD 12. Hx of CVA 13. CAD and previous stents PLAN appreciate neurology input, poss. seizure imaging studies reviewed, no acute findings CUS, no stenosis Echo done, EF 55-60% EEG pending Ativan PRN Seizure precautions continue with baby ASA UTI, + GNR, follow up on sens continue Rocephin Acute on CKD continue with IVF Renal function better counselled about ETOH use Ativan PRN Start Folic acid and thiamine PT eval CM consult for dc planning, [facility] pt. not to drive until clear by neurology SCDs DVT prophylaxis PPI for GI Prophylaxis Possible dc later today if work up completed, will wait for neuro clearance D/W RN D/W Dr. Bynum D/W pt. This patient was seen by myself and Dr. Bynum, this note is written on his behalf. Shelia Parikh Sep 29, 2016 08:11
[2016-09-29] MEDS: ASPIRIN EC 81 MG TABEC PO SCH (08:55)
[2016-09-29] MEDS: FLUoxetine HCL 20 MG CAP PO SCH (08:55)
[2016-09-29] MEDS: LISINOPRIL 10 MG TAB PO SCH (08:55)
[2016-09-29] MEDS: SODIUM CHLORIDE 0.9% FLUSH 5 ML FLUSH IV SCH (08:56)
[2016-09-29] MEDS: PANTOPRAZOLE SOD 40 MG DELAYED RELEASE TAB PO SCH (08:56)
--- NOTE | 2016-09-29 08:58 | HHI.FF ---
Face to Face Verification Diagnosis: (1) Syncope (2) UTI (urinary tract infection) Physical Therapy Order: Evaluate and Treat Home Health Nursing Order: Medical education Signs/symptoms of disease process Nursing assessment with vital signs [employer] Order: To Evaluate: Support services Order: To Provide: Community services I have seen patient Rylee Sierra on 09/29/16. My clinical findings support the need for the requested home health care services because: Impaired cognition/judgement High risk of falls I certify that my clinical findings support that this patient is homebound because: Impaired cognitive ability/safety Unsafe to leave home unassisted Need for psychosocial assistance Shelia Parikh Sep 29, 2016 08:57
[2016-09-29] MEDS ORDERED: FOLIC ACID 1 MG TAB PO SCH (09:15)
[2016-09-29] MEDS ORDERED: THIAMINE HCL 100 MG TAB PO SCH (09:15)
[2016-09-29 11:12] VITALS: BP 147/69; PULSE 75; RESP 18; O2SAT 95
[2016-09-29 15:29] VITALS: BP 145/76; PULSE 81; RESP 18; O2SAT 95
--- NOTE | 2016-09-30 10:11 | MG ---
cc: DEBO HONG M.D. Lab No: [id number] Date: 09/28/2016 Age: __ Sex: F Race: __ TECHNIQUE 17 channel EEG. DESCRIPTION The background rhythm reveals a symmetrical alpha rhythm with a frequency of 8-9 Hz, amplitude is 10-20 microvolts. During drowsiness, there is mild slowing in the theta range. There are no lateralizing features seen and no epileptiform discharges present. Occasional muscle artifact is identified in the tracing. Photic stimulation results in a normal driving response. Hyperventilation was not performed. INTERPRETATION This is a normal EEG. MD REGINA Infante/PURNIMA /10:02 AM /10:08 AM
== END 2016-09-29 18:33 | disposition left against medical advice (07) ==
LOC: NEPE 20:43 → NEDA 23:38 → NEPHCDU 09-28 00:54
PROVIDERS: ADMIT Family Medicine; ATTEND Family Medicine
DX: R55 Syncope and collapse (principal); N39.0 Urinary tract infection, site not specified; B96.20 Unspecified Escherichia coli [E. coli] as the cause of diseases classified elsewhere; I25.10 Atherosclerotic heart disease of native coronary artery without angina pectoris; I12.9 Hypertensive chronic kidney disease with stage 1 through stage 4 chronic kidney disease, or unspecified chronic kidney disease; N18.9 Chronic kidney disease, unspecified; E11.22 Type 2 diabetes mellitus with diabetic chronic kidney disease; E78.5 Hyperlipidemia, unspecified; R51 Headache; F41.1 Generalized anxiety disorder; K21.9 Gastro-esophageal reflux disease without esophagitis; Z98.84 Bariatric surgery status; Z86.73 Personal history of transient ischemic attack (TIA), and cerebral infarction without residual deficits; Z79.4 Long term (current) use of insulin; Z95.5 Presence of coronary angioplasty implant and graft
CPT/HCPCS: 70450; 70551; 71010; 72125; 72170; 80048; 80053; 81001; 82550; 82552; 82607; 82747; 82948; 83735; 84439; 84443; 84484; 85025; 85610; 85730; 87040; 87077; 87086; 87186; 93005; 93306; 93880; 95819; 97162; 97530; 99285; G0378; G8987; G8988; J0696; J1815; J7030

== ENCOUNTER 2017-06-17 14:53 | Observation (INO) | payer MEDICARE ==
[~2017-06-17] VITALS: Ht 157.5 cm; Wt 50.0 kg
[~2017-06-17 14:53] MED LIST changes: +ASPI1TAB69 PO; -ASPI81 PO; -CRES10TA PO; +ERGO2000 PO; -FLUO-1 PO; +FLUO40CA PO; +HYDR-3583 PO; -IRON28TA2 PO; -ISOS10TA35 PO; +ISOS30TA3 PO; +LANTUS2P SQ; +LISI10TA3 PO; -NOVONP2 SQ; +PANT40TA3 PO; -PROP60CA PO; -PROT40IN PO; +TEMA15CA PO; -VITA400C28 PO; -VITA500T49 PO
[2017-06-17 15:01] VITALS: BP 135/60; PULSE 61; RESP 16; TEMP 97.7; O2SAT 99
[2017-06-17] MEDS ORDERED: DOXE25CA2 PO (15:11)
[2017-06-17] MEDS ORDERED: BRIM0.2S4 EACH EYE (15:11)
[2017-06-17] MEDS ORDERED: LATA0.002 EACH EYE (15:11)
--- NOTE | 2017-06-17 15:52 | PD ---
HPI Chief Complaint: Syncope/Near-Syncope Time Seen by Provider: 15:47 Travel History International Travel<30 days: No Contact w/Intl Traveler<30days: No Traveled to known affect area: No History of Present Illness HPI 81 YO F with PMH of CAD status post stenting, HLD, CVA, DM, insulin-dependent, HTN presents to the ED by EMS for evaluation of blood pressure of 90/40 recorded at her doctor's office just before arrival. On presentation the patient states that she's had dizziness ongoing for the last 1 month. She states that she woke up at 2:00 in the morning with a pounding left frontal headache with dizziness and speech difficulties. She woke her son who told her to take an aspirin. She states that when she woke up in the morning the dizziness was present but other symptoms had resolved. She denies recent history of fevers, chills, nausea, vomiting, melena, hematochezia, changes in bowel habits. 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 She denies blood thinners. She is followed by Dr. Serna cardiology, Dr. Bello neurology and Dr. Yeboah PCP. PFS Past Medical History Hx Anticoagulant Therapy: Yes (ASPIRIN) Arthritis: No Anxiety: Yes Depression: Yes Heart Rhythm Problems: No Cancer: No Cardiovascular Problems: Yes High Cholesterol: Yes Chest Pain: Yes Congestive Heart Failure: No Cerebrovascular Accident: Yes Diabetes: Yes (INSULIN) Patient Takes Glucophage: No Diminished Hearing: No Endocrine: Yes Genitourinary: Yes Headaches: Yes Hypertension: Yes Musculoskeletal: No Neurologic: No Psychiatric: Yes Reproductive: No Respiratory: No Migraines: No Pneumonia: Yes Renal Failure: Yes Seizures: No Thyroid Disease: No Ulcer: Yes Menopausal: Yes : 4 Para: 3 Miscarriage: 1 Past Surgical History Abdominal Surgery: Yes (STOMACH BYPASS SURGERY) Cardiac Surgery: Yes (STENT TO HEART MAY 2012) Cholecystectomy: Yes Ear Surgery: No Endocrine Surgery: No Eye Surgery: No Genitourinary Surgery: No Gynecologic Surgery: No Oral Surgery: No Thoracic Surgery: No Other Surgery: Yes (HEART CATH WITH STENT PLACED, HERNIA (RIGHT) REPAIR) Social History Alcohol Use: Yes (DAILY) Tobacco Use: No Substance Use: No Allergies-Medications (Allergen,Severity, Reaction): Coded Allergies: codeine (Unverified Allergy, Severe, "MAKES HER MEAN", 06/17/17) erythromycin base (Unverified Allergy, Severe, Itching, 06/17/17) morphine (Unverified Allergy, Severe, ITCHING, 06/17/17) Reported Meds & Prescriptions Reported Meds & Active Scripts Active Reported Latanoprost Opth Drops (Latanoprost) 0.005% Drops 1 Drop EACH EYE HS Refrigerate until opened. Doxepin (Doxepin HCl) 25 Mg Cap 10 Mg PO HS Brimonidine Opth Drops (Brimonidine Tartrate) 0.2% Soln 1 Drop EACH EYE BID Lantus Inj (Insulin Glargine) 1,000 Unit/10 Ml Vial 5 Units SQ HS Lantus Inj (Insulin Glargine) 1,000 Unit/10 Ml Vial 5 Units SQ AC BREAKFAST Lisinopril 10 Mg Tab 10 Mg PO DAILY Hydrocodone-Acetaminophen 10-325 mg Tab 1 Tab PO BID PRN Temazepam 15 Mg Cap 15 Mg PO HS PRN Pantoprazole (Pantoprazole Sodium) 40 Mg Tab 40 Mg PO DAILY Vitamin D2 (Ergocalciferol) 2,000 Unit Tab 50,000 Units PO WEEKLY Isosorbide Mononitrate ER (Isosorbide Mononitrate) 30 Mg Maldonado 30 Mg PO DAILY Fluoxetine (Fluoxetine HCl) 40 Mg Cap 40 Cap PO DAILY Review of Systems Except as stated in HPI: all other systems reviewed are Neg Physical Exam Narrative GENERAL: Well-nourished, well-developed petite white female in no acute distress. SKIN: Focused skin assessment warm/dry. 2 cm x 8 cm superficial, well granulated wound of the left anterior mcdonough without signs of infection. HEAD: Normocephalic. EYES: No scleral icterus. No injection or drainage. NECK: Supple, trachea midline. No JVD or lymphadenopathy. CARDIOVASCULAR: Regular rate and rhythm without murmurs, gallops, or rubs. RESPIRATORY: Breath sounds clear and equal bilaterally. No accessory muscle use. GASTROINTESTINAL: Abdomen soft, non-tender, nondistended. MUSCULOSKELETAL: No cyanosis, or edema. NEUROLOGICAL: Awake and alert. Cranial nerves II through XII intact. Motor and sensory grossly within normal limits. Five out of 5 muscle strength in all muscle groups. Normal speech. No pronator drift. BACK: Nontender without obvious deformity. No CVA tenderness. Data Data Last Documented VS Vital Signs Date Time Temp Pulse Resp B/P (MAP) Pulse Ox O2 Delivery O2 Flow Rate FiO2 06/17/17 18:55 97 06/17/17 18:00 59 18 200/93 (128) 57 18 188/79 (115) 65 18 187/79 (115) 06/17/17 16:45 Room Air 06/17/17 15:01 97.7 Orders Orders Electrocardiogram (06/17/17 15:47) Complete Blood Count With Diff (06/17/17 15:47) Comprehensive Metabolic Panel (06/17/17 15:47) Magnesium (Mg) (06/17/17 15:47) Ckmb (Isoenzyme) Profile (06/17/17 15:47) Troponin I (06/17/17 15:47) Act Partial Throm Time (Ptt) (06/17/17 15:47) Prothrombin Time / Inr (Pt) (06/17/17 15:47) Urinalysis - C+S If Indicated (06/17/17 15:47) Chest, Single Ap (06/17/17 15:47) Ecg Monitoring (06/17/17 15:47) Iv Access Insert/Monitor (06/17/17 15:47) Oximetry (06/17/17 15:47) Sodium Chloride 0.9% Flush (Ns Flush) (06/17/17 16:00) Ct Brain W/O Iv Contrast(Rout) (06/17/17 15:47) Orthostatic Vital Signs (06/17/17 16:44) Sodium Chlor 0.9% 1000 Ml Inj (Ns 1000 M (06/17/17 17:15) Calcium Carbonate (Oscal) (06/17/17 17:15) Place In Observation (06/17/17 ) Vital Signs (Adult) Q2HX12,Q4H (06/17/17 18:46) Nih Stroke Scale - Nihss .Daily (06/17/17 18:46) Neuro Checks Q2HX12,Q4H (06/17/17 18:46) Notify Dr: Other (06/17/17 18:46) Remove Urinary Catheter .ONCE (06/17/17 18:46) Ot Request For Service (06/17/17 18:46) Pt Request For Service (06/17/17 18:46) Speech Therapy Consult-Eval/Tx (06/17/17 18:46) Case Management Consult (06/17/17 ) Activity Oob Ad Alycia (06/17/17 18:46) Nursing Bedside Swallow Assess .ONCE (06/17/17 18:46) Scd Bilateral/Knee High DAVID.QSHIFT (06/17/17 18:46) Diet Npo (06/17/17 Dinner) Hemoglobin (Hgb) A1c (06/17/17 18:46) Lipid Profile (06/18/17 06:00) Us Carotid Arteries Comp Bilat (06/17/17 ) Holter Monitor Recording (06/17/17 ) Mra Brain W/O Contrast (Cow) (06/17/17 ) Echo 2d Comp With Doppler (06/17/17 ) Resp Oxygen Trino C Titrat 1-4 L (06/17/17 ) ^ Hold Medication (06/17/17 18:46) Sodium Chloride 0.9% Flush (Ns Flush) (06/17/17 21:00) Sodium Chloride 0.9% Flush (Ns Flush) (06/17/17 19:00) Aspirin Chew (Aspirin Chew) (06/18/17 09:00) Bedside Glucose DAVID.CSUGAR (06/17/17 18:46) ^ Discontinue Insulin Orders (06/17/17 18:46) Insulin Aspart Supplemtl Scale (Novolog (06/17/17 21:00) Dextrose 50% In Rafael (Vial) Inj (D50w (Vi (06/17/17 19:00) Glucagon Inj (Glucagon Inj) (06/17/17 19:00) Ladle Watcher / Telemetry DAVID.Q8H (06/17/17 18:46) Consult Stroke Navigator (06/17/17 ) Scd Bilateral/Knee High DAVID.BID (06/17/17 18:46) Bedside Glucose DAVID.CSUGAR (06/17/17 18:49) Blood Glucose Goal (Criteria) (06/17/17 18:49) Hypoglycemia 70 Mg/Dl Or < (06/17/17 18:49) Notify Dr: Other (06/17/17 18:49) Dextrose 50% In Rafael (Vial) Inj (D50w (Vi (06/17/17 19:00) Glucagon Inj (Glucagon Inj) (06/17/17 19:00) Admit Order (Ed Use Only) (06/17/17 18:47) Labs Laboratory Tests Test 06/17/17 16:00 06/17/17 18:00 White Blood Count 5.9 TH/MM3 Red Blood Count 3.66 MIL/MM3 Hemoglobin 11.4 GM/DL Hematocrit 34.5 % Mean Corpuscular Volume 94.3 FL Mean Corpuscular Hemoglobin 31.1 PG Mean Corpuscular Hemoglobin Concent 32.9 % Red Cell Distribution Width 13.7 % Platelet Count 185 TH/MM3 Mean Platelet Volume 7.8 FL Neutrophils (%) (Auto) 75.6 % Lymphocytes (%) (Auto) 12.4 % Monocytes (%) (Auto) 8.4 % Eosinophils (%) (Auto) 3.2 % Basophils (%) (Auto) 0.4 % Neutrophils # (Auto) 4.5 TH/MM3 Lymphocytes # (Auto) 0.7 TH/MM3 Monocytes # (Auto) 0.5 TH/MM3 Eosinophils # (Auto) 0.2 TH/MM3 Basophils # (Auto) 0.0 TH/MM3 CBC Comment DIFF FINAL Differential Comment Prothrombin Time 10.2 SEC Prothromb Time International Ratio 0.9 RATIO Activated Partial Thromboplast Time 23.7 SEC Blood Urea Nitrogen 26 MG/DL Creatinine 1.89 MG/DL Random Glucose 291 MG/DL Total Protein 5.9 GM/DL Albumin 2.8 GM/DL Calcium Level 7.9 MG/DL Magnesium Level 2.0 MG/DL Alkaline Phosphatase 63 U/L Aspartate Amino Transf (AST/SGOT) 11 U/L Alanine Aminotransferase (ALT/SGPT) 16 U/L Total Bilirubin 0.3 MG/DL Sodium Level 139 MEQ/L Potassium Level 4.8 MEQ/L Chloride Level 111 MEQ/L Carbon Dioxide Level 18.8 MEQ/L Anion Gap 9 MEQ/L Estimat Glomerular Filtration Rate 26 ML/MIN Total Creatine Kinase 62 U/L Troponin I LESS THAN 0.02 NG/ML Urine Color LIGHT-YELLOW Urine Turbidity CLEAR Urine pH 5.5 Urine Specific Hooper 1.009 Urine Protein NEG mg/dL Urine Glucose (UA) 150 mg/dL Urine Ketones NEG mg/dL Urine Occult Blood NEG Urine Nitrite NEG Urine Bilirubin NEG Urine Urobilinogen LESS THAN 2.0 MG/DL Urine Leukocyte Esterase TRACE Urine RBC LESS THAN 1 /hpf Urine WBC 3 /hpf Urine Squamous Epithelial Cells <1 /hpf Urine Mucus FEW /lpf Microscopic Urinalysis Comment CULT NOT INDICATED MDM Medical Decision Making Medical Screen Exam Complete: Yes Emergency Medical Condition: Yes Differential Diagnosis TIA versus CVA versus syncope versus orthostatic hypotension versus other Narrative Course 81-year-old female with PMH of CAD S/T stenting, visual D, CVA, DM, HTN, insulin -dependent presents to the ED via EMS for evaluation of BP of 90/40 recorded at her doctor's office today. On presentation she endorses ongoing dizziness for the last month. She states that she woke up at 2 AM with a pounding left frontal headache, dizziness and speech difficulties. She took an aspirin when she woke up in the morning the symptoms have resolved. States she otherwise been feeling well. She had a stress test performed at Dr. Serna's office but does not know the results. Takes no blood thinners. Followed by Dr. Mai neurology and Dr. Yeboah PCP. Vitals reviewed BP and 35/60 on arrival. Physical exam reveals no focal neuro deficits. IV was established. EKG rate 57, sinus bradycardia. NC interval 194, QRS 100, QTC [address] changes. Reviewed by Dr. Abernathy. CXR: Lungs clear per radiology read. CT brain: No acute disease per radiology read. BUN 26. Creatinine 1.89. Calcium 7.9. Last BP 185/80. Patient was administered 1 L normal saline IV and 1 g calcium by mouth. I suspect she's had a TIA and would benefit from further evaluation. Patient is agreeable to admission. I spoke with Dr. Gonsales who agrees to accept the patient to the medicine service under Dr. Greco. Please see medicine notes for disposition. Audra Mercer Jun 17, 2017 15:52
[2017-06-17] MEDS ORDERED: SODIUM CHLORIDE 0.9% FLUSH 10 ML FLUSH IVF PRN (16:00)
--- NOTE | 2017-06-17 16:13 | RADRPT ---
EXAM DATE/TIME: 06/17/2017 15:59 [facility] COMPARISON: CHEST SINGLE AP, September 27, 2016, 21:30. INDICATIONS : Syncopal episode. MEDICAL HISTORY : Stroke. Hypercholesterolemia. Hypertension. Ulcer. Pneumonia. Diabetes. Liverdisease. Renal failure. SURGICAL HISTORY : Coronary artery stent. Cholecystectomy. Hernia repair. ENCOUNTER: Initial ACUITY: 1 day PAIN SCORE: 0/10 LOCATION: Bilateral chest FINDINGS: A single view of the chest demonstrates the lungs to be symmetrically aerated without evidence of mas s, infiltrate or effusion. The cardiomediastinal contours are unremarkable. The left hemidiaphragm i s elevated. Osseous structures are intact. Left lumbar scoliosis. CONCLUSION: Lungs are grossly clear. Left hemidiaphragm is elevated. Pronounced leftward lumbar scoliosis. Yosi Gaston MD on June 17, 2017 at 16:10 Board Certified Radiologist. This report was verified electronically.
[2017-06-17 16:23] LABS: AUTOMATED NEUTROPHIL # 4.5 TH/MM3 (1.8-7.7); BASOPHIL % 0.4 % (0.0-2.0); EOSINOPHIL # 0.2 TH/MM3 (0-0.4); EOSINOPHIL % 3.2 % (0.0-4.0); HEMATOCRIT 34.5 % (35.0-46.0); HEMO FLAGS DIFF FINAL; LYMPH % 12.4 % (9.0-44.0); LYMPHOCYTE # 0.7 TH/MM3 (1.0-4.8); MEAN CELL VOLUME 94.3 FL (80.0-100.0); MEAN CORPUSCULAR HEMOGLOBIN 31.1 PG (27.0-34.0); MEAN CORPUSCULAR HGB CONC 32.9 % (32.0-36.0); MONO % 8.4 % (0.0-8.0); NEUT % 75.6 % (16.0-70.0); PLATELET COUNT 185 TH/MM3 (150-450); RED BLOOD COUNT 3.66 MIL/MM3 (4.00-5.30); RED CELL DISTRIBUTION WIDTH 13.7 % (11.6-17.2); WHITE BLOOD COUNT 5.9 TH/MM3 (4.0-11.0)
[2017-06-17 16:26] VITALS: O2SAT 97
[2017-06-17 16:26] LABS: APTT (PATIENT) 23.7 SEC (24.3-30.1); INTERNATIONAL NORMALIZED RATIO 0.9 RATIO; PROTHROMBIN TIME - PATIENT 10.2 SEC (9.8-11.6)
[2017-06-17 16:32] LABS: ANION GAP 9 MEQ/L (5-15); AST (GOT) 11 U/L (15-37); BICARBONATE 18.8 MEQ/L (21.0-32.0); BLOOD UREA NITROGEN 26 MG/DL (7-18); CHLORIDE 111 MEQ/L (98-107); GLOMERULAR FILTRATION RATE 26 ML/MIN (>89); POTASSIUM 4.8 MEQ/L (3.5-5.1); SODIUM (NA) 139 MEQ/L (136-145)
[2017-06-17 16:38] LABS: ALKALINE PHOSPHATASE 63 U/L (45-117); ALT (GPT) 16 U/L (10-53); TOTAL BILIRUBIN ADULT 0.3 MG/DL (0.2-1.0)
[2017-06-17 16:40] LABS: CREATINE KINASE 62 U/L (26-192)
[2017-06-17 16:45] VITALS: BP 145/69; PULSE 58; RESP 20; O2SAT 99
--- NOTE | 2017-06-17 17:05 | RADRPT ---
EXAM DATE/TIME: 06/17/2017 16:41 [facility] COMPARISON: CT BRAIN W/O CONTRAST, September 27, 2016, 21:47. INDICATIONS : Patient complains of dizziness. RADIATION DOSE: 29.02 CTDIvol (mGy) MEDICAL HISTORY : Cerebrovascular disease. Hypertension. Diabetes mellitus type 1.renal failure SURGICAL HISTORY : Cholecystectomy. ENCOUNTER: Initial ACUITY: 1 day PAIN SCALE: 0/10 LOCATION: cranial TECHNIQUE: Multiple contiguous axial images were obtained of the head. Using automated exposure control and adj ustment of the mA and/or kV according to patient size, radiation dose was kept as low as reasonably a chievable to obtain optimal diagnostic quality images. DICOM format image data is available electro nically for review and comparison. FINDINGS: There is marked central and cortical atrophy with dilatation of ventricular and sulcal spaces. There is no parenchymal hemorrhage, acute infarction or mass lesion identified. There are no extra-axial fluid collections appreciated. The posterior fossa is unremarkable with midline fourth ventricle. T he portion of the orbits and paranasal sinuses visualized are unremarkable. CONCLUSION: No acute disease. Yosi Gaston MD on June 17, 2017 at 17:02 Board Certified Radiologist. This report was verified electronically.
[2017-06-17] MEDS ORDERED: SODIUM CHLOR 0.9% 1000 ML INJ 1,000 ML IV ONE (17:15)
[2017-06-17] MEDS ORDERED: CALCIUM CARBONATE 1.25 GM (CA 500 MG) TAB PO ONE (17:15)
[2017-06-17 18:00] VITALS: BP_SYST 187; BP_SYST 188; BP_SYST 200; BP_DIAS 79; BP_DIAS 93; RESP 18
[2017-06-17 18:36] LABS: BLOOD, URINE NEG (NEG); COMMENT (UR) CULT NOT INDICATED; CULTURE IF INDICATED CULT NOT INDICATED; GLUCOSE,URINE 150 mg/dL (NEG); KETONE, URINE NEG (NEG); MUCUS URINE FEW /lpf (OCC); NITRITE,URINE NEG (NEG); PH, URINE 5.5 (5.0-8.5); SQUAMOUS EPITHELIAL CELL URINE <1 /hpf (0-5); URINE COLOR LIGHT-YELLOW (YELLW/STRAW)
--- NOTE | 2017-06-17 18:50 | PD ---
Physical Exam Date Seen by Provider: Jun 17, 2017 Time Seen by Provider: 17:50 Narrative I, Dr. Abernathy, have reviewed the advance practice practitioner's documentation and am in agreement, met with the patient face to face, made the diagnosis, and the medical decision making was done by me. *My assessment and Findings: Patient seen and evaluated with PA, please see PA note for further details. She complains of dizziness and trouble speaking, headache starting last night, so the aphasia has resolved. No focal neurological deficits identified at this time. EKG shows NSR, no ST elevation or depression, and no arrhythmias. No significant T-wave inversions. Laboratory Tests Test 06/17/17 16:00 06/17/17 18:00 Red Blood Count 3.66 MIL/MM3 (4.00-5.30) Hemoglobin 11.4 GM/DL (11.6-15.3) Hematocrit 34.5 % (35.0-46.0) Neutrophils (%) (Auto) 75.6 % (16.0-70.0) Monocytes (%) (Auto) 8.4 % (0.0-8.0) Lymphocytes # (Auto) 0.7 TH/MM3 (1.0-4.8) Activated Partial Thromboplast Time 23.7 SEC (24.3-30.1) Blood Urea Nitrogen 26 MG/DL (7-18) Creatinine 1.89 MG/DL (0.50-1.00) Random Glucose 291 MG/DL (74-106) Total Protein 5.9 GM/DL (6.4-8.2) Albumin 2.8 GM/DL (3.4-5.0) Calcium Level 7.9 MG/DL (8.5-10.1) Aspartate Amino Transf (AST/SGOT) 11 U/L (15-37) Chloride Level 111 MEQ/L (98-107) Carbon Dioxide Level 18.8 MEQ/L (21.0-32.0) Estimat Glomerular Filtration Rate 26 ML/MIN (>89) Troponin I LESS THAN 0.02 NG/ML Urine Glucose (UA) 150 mg/dL (NEG) Urine Leukocyte Esterase TRACE (NEG) Urine Mucus FEW /lpf (OCC) Last [address] 06/17/17 7737 Signed Impressions: Service Date/Time: Saturday, June 17, 2017 16:41 - CONCLUSION: No acute disease. Yosi Gaston MD Chest X-Ray 06/17/17 1547 Signed Impressions: Service Date/Time: Saturday, June 17, 2017 15:59 - CONCLUSION: Lungs are grossly clear. Left hemidiaphragm is elevated. Pronounced leftward lumbar scoliosis. Yosi Gaston MD CT did not shows any signs of acute intracranial processes. Lab work was fairly unremarkable. She has no signs of neurological findings at this time. There is suspicion of a possible TIA considering symptoms and plan would be to give her aspirin and admitted for further evaluation. Otherwise, patient's blood work shows elevated BUN and creatinine and glucose which will need to be corrected as well. Her blood pressure is fairly elevated which could be contributing. This will need to be addressed during admission as well. Data Data Last Documented VS Vital Signs Date Time Temp Pulse Resp B/P (MAP) Pulse Ox O2 Delivery O2 Flow Rate FiO2 06/17/17 18:00 59 18 200/93 (128) 57 18 188/79 (115) 65 18 187/79 (115) 06/17/17 16:26 97 Room Air 06/17/17 15:01 97.7 Orders Orders Electrocardiogram (06/17/17 15:47) Complete Blood Count With Diff (06/17/17 15:47) Comprehensive Metabolic Panel (06/17/17 15:47) Magnesium (Mg) (06/17/17 15:47) Ckmb (Isoenzyme) Profile (06/17/17 15:47) Troponin I (06/17/17 15:47) Act Partial Throm Time (Ptt) (06/17/17 15:47) Prothrombin Time / Inr (Pt) (06/17/17 15:47) Urinalysis - C+S If Indicated (06/17/17 15:47) Chest, Single Ap (06/17/17 15:47) Ecg Monitoring (06/17/17 15:47) Iv Access Insert/Monitor (06/17/17 15:47) Oximetry (06/17/17 15:47) Sodium Chloride 0.9% Flush (Ns Flush) (06/17/17 16:00) Ct Brain W/O Iv Contrast(Rout) (06/17/17 15:47) Orthostatic Vital Signs (06/17/17 16:44) Sodium Chlor 0.9% 1000 Ml Inj (Ns 1000 M (06/17/17 17:15) Calcium Carbonate (Oscal) (06/17/17 17:15) Labs Laboratory Tests Test 06/17/17 16:00 06/17/17 18:00 White Blood Count 5.9 TH/MM3 Red Blood Count 3.66 MIL/MM3 Hemoglobin 11.4 GM/DL Hematocrit 34.5 % Mean Corpuscular Volume 94.3 FL Mean Corpuscular Hemoglobin 31.1 PG Mean Corpuscular Hemoglobin Concent 32.9 % Red Cell Distribution Width 13.7 % Platelet Count 185 TH/MM3 Mean Platelet Volume 7.8 FL Neutrophils (%) (Auto) 75.6 % Lymphocytes (%) (Auto) 12.4 % Monocytes (%) (Auto) 8.4 % Eosinophils (%) (Auto) 3.2 % Basophils (%) (Auto) 0.4 % Neutrophils # (Auto) 4.5 TH/MM3 Lymphocytes # (Auto) 0.7 TH/MM3 Monocytes # (Auto) 0.5 TH/MM3 Eosinophils # (Auto) 0.2 TH/MM3 Basophils # (Auto) 0.0 TH/MM3 CBC Comment DIFF FINAL Differential Comment Prothrombin Time 10.2 SEC Prothromb Time International Ratio 0.9 RATIO Activated Partial Thromboplast Time 23.7 SEC Blood Urea Nitrogen 26 MG/DL Creatinine 1.89 MG/DL Random Glucose 291 MG/DL Total Protein 5.9 GM/DL Albumin 2.8 GM/DL Calcium Level 7.9 MG/DL Magnesium Level 2.0 MG/DL Alkaline Phosphatase 63 U/L Aspartate Amino Transf (AST/SGOT) 11 U/L Alanine Aminotransferase (ALT/SGPT) 16 U/L Total Bilirubin 0.3 MG/DL Sodium Level 139 MEQ/L Potassium Level 4.8 MEQ/L Chloride Level 111 MEQ/L Carbon Dioxide Level 18.8 MEQ/L Anion Gap 9 MEQ/L Estimat Glomerular Filtration Rate 26 ML/MIN Total Creatine Kinase 62 U/L Troponin I LESS THAN 0.02 NG/ML Urine Color LIGHT-YELLOW Urine Turbidity CLEAR Urine pH 5.5 Urine Specific [place] 1.009 Urine Protein NEG mg/dL Urine Glucose (UA) 150 mg/dL Urine Ketones NEG mg/dL Urine Occult Blood NEG Urine Nitrite NEG Urine Bilirubin NEG Urine Urobilinogen LESS THAN 2.0 MG/DL Urine Leukocyte Esterase TRACE Urine RBC LESS THAN 1 /hpf Urine WBC 3 /hpf Urine Squamous Epithelial Cells <1 /hpf Urine Mucus FEW /lpf Microscopic Urinalysis Comment CULT NOT INDICATED MDM Medical Record Reviewed: Yes Supervised Visit with CHRIS: Yes Diagnosis Primary Impression: TIA (transient ischemic attack) Additional Impression: Syncope Admitting Information Admitting Physician Requests: it Marija Abernathy MD Jun 17, 2017 18:50
[2017-06-17 18:55] VITALS: O2SAT 97
[2017-06-17] MEDS ORDERED: SODIUM CHLORIDE 0.9% FLUSH 5 ML FLUSH IV FLUSH PRN (19:00)
[2017-06-17] MEDS ORDERED: GLUCAGON 1 MG/ML VIAL OTHER PRN ×2 (19:00)
[2017-06-17] MEDS ORDERED: DEXTROSE 50% IN WATER 50 ML VIAL(D50) IV PUSH PRN (19:00)
--- NOTE | 2017-06-17 20:42 | RADRPT ---
EXAM DATE/TIME: 06/17/2017 19:44 [facility] COMPARISON: US CAROTID ARTERIES, September 28, 2016, 8:24. INDICATIONS : Transient ischemic attack. MEDICAL HISTORY : Hypercholesterolemia. Hypertension. Cebrovascular accident. Renal failure. Diabetes. Liver disea se. SURGICAL HISTORY : Cholecystectomy. Coronary stent. Stomach bypass surgery. Back surgery. Cardiac catheterization. Hernia repair. ENCOUNTER: Initial ACUITY: 1 day PAIN SCORE: 0/10 LOCATION: Bilateral neck PEAK SYSTOLIC VELOCITIES (cm/sec): ICA/CCA RATIO: Right: 1.9 Left: 1.2 ICA: Right: 119 Left: 101 CCA: Right: 65 Left: 84 ECA: Right: 68 Left: 71 VERTEBRAL: Right: 76 antegrade Left: 26 antegrade Elevated flow velocities and ICA/CCA ratios have been found to correlate with increased degrees of vessel stenosis, calculated as percentage of diameter relative to a normal segment of distal ICA/CCA FINDINGS: RIGHT CAROTID: Mild plaque formation in the common and internal carotid artery. Velocity spectrum is not widened. LEFT CAROTID: Mild plaque formation in the common and internal carotid artery. Velocity spectrum is not widened. VERTEBRAL ARTERIES: Antegrade flow is seen in both vertebral arteries. MISCELLANEOUS: None. CONCLUSION: Mild plaque formation with hemodynamic profile characteristic of less than 50% stenosis bilaterally. James Briseno MD on June 17, 2017 at 20:39 Board Certified Radiologist. This report was verified electronically.
--- NOTE | 2017-06-17 20:45 | HHI.HP ---
[facility] Primary Care Physician Faviola Hunt D.O. Admission Diagnosis TIA Diagnoses: Travel History International Travel<30 Days: No Contact w/Intl Traveler <30 Da: No Traveled to Known Affected Are: No History of Present Illness 81-year-old female with a past medical history significant for hypertension, CAD status post stenting, history of CVA, CKD and insulin-dependent diabetes mellitus presents to the emergency department from her primary care physician's office. The patient's blood pressure was found to be 90/40 in her doctor's office. She also states that the staff at her doctor's office said she was "acting funny." Last night, the patient awoke with a severe headache that she described as "an electrical current running through her head." She states she stood up to go to wake up her son and fell and hit her head. She denies any loss of consciousness. She states that she had hallucinations following her fall. She also states she had thinking and speech difficulties. She took an aspirin last night and returned to bed. Upon waking this morning she had persistent dizziness but the remainder of her symptoms were gone. At this time she complains of a numbness and tingling around her lips without any other symptoms. Laboratory values significant for creatinine of 1.89, baseline 1.8. CT of the head showed no acute intracranial process. EKG showed sinus bradycardia with a heart rate of [address] segment elevations or depressions. Blood pressure on arrival to the emergency department was 145/69. Review of Systems Denies fever or chills Denies blurry vision, otorrhea, rhinorrhea Denies sore throat and cough No chest pain, palpitations, shortness of breath No abdominal pain Denies constipation/diarrhea/nausea/vomiting Denies muscle pain/weakness No rashes Past Family Social History Past Medical History Anxiety History of CVA Insulin-dependent diabetes mellitus Hypertension Coronary artery disease, status post stent placement in May 2012 GERD Past Surgical History Gastric bypass surgery 2 Cardiac stent in May 2012 Cholecystectomy Right hernia repair Reported Medications Reported Meds & Active Scripts Active Reported Latanoprost Opth Drops (Latanoprost) 0.005% Drops 1 Drop EACH EYE HS Refrigerate until opened. Doxepin (Doxepin HCl) 25 Mg Cap 10 Mg PO HS Brimonidine Opth Drops (Brimonidine Tartrate) 0.2% Soln 1 Drop EACH EYE BID Lantus Inj (Insulin Glargine) 1,000 Unit/10 Ml Vial 5 Units SQ HS Lantus Inj (Insulin Glargine) 1,000 Unit/10 Ml Vial 5 Units SQ AC BREAKFAST Lisinopril 10 Mg Tab 10 Mg PO DAILY Hydrocodone-Acetaminophen 10-325 mg Tab 1 Tab PO BID PRN Temazepam 15 Mg Cap 15 Mg PO HS PRN Pantoprazole (Pantoprazole Sodium) 40 Mg Tab 40 Mg PO DAILY Vitamin D2 (Ergocalciferol) 2,000 Unit Tab 50,000 Units PO WEEKLY Isosorbide Mononitrate ER (Isosorbide Mononitrate) 30 Mg Maldonado 30 Mg PO DAILY Fluoxetine (Fluoxetine HCl) 40 Mg Cap 40 Cap PO DAILY Allergies: Coded Allergies: codeine (Unverified Allergy, Severe, "MAKES HER MEAN", 06/17/17) erythromycin base (Unverified Allergy, Severe, Itching, 06/17/17) morphine (Unverified Allergy, Severe, ITCHING, 06/17/17) Family History Mother with history of cardiac disease. Social History Never smoker. Alcohol approximately 3-4 times weekly. Denies illicit drugs. Physical Exam Vital Signs Vital Signs Date Time Temp Pulse Resp B/P (MAP) Pulse Ox O2 Delivery O2 Flow Rate FiO2 06/17/17 18:55 97 06/17/17 18:00 59 18 200/93 (128) 57 18 188/79 (115) 65 18 187/79 (115) 06/17/17 16:45 58 20 145/69 (94) 99 Room Air 06/17/17 16:26 97 Room Air 06/17/17 15:01 97.7 61 16 135/60 (85) 99 Physical Exam GENERAL: female lying in bed SKIN: 10 cm superficial laceration on the left anterior mcdonough. No surrounding erythema. No purulent discharge. HEAD: Atraumatic. Normocephalic. No temporal or scalp tenderness. EYES: Pupils equal round and reactive. Extraocular motions intact. No scleral icterus. No injection or drainage. ENT: Nose without bleeding, purulent drainage or septal hematoma. Throat without erythema, tonsillar hypertrophy or exudate. Uvula midline. Airway patent. NECK: Trachea midline. No JVD or lymphadenopathy. Supple, nontender, no meningeal signs. CARDIOVASCULAR: Regular rate and rhythm without murmurs, gallops, or rubs. RESPIRATORY: Clear to auscultation. Breath sounds equal bilaterally. No wheezes , rales, or rhonchi. GASTROINTESTINAL: Abdomen soft, non-tender, nondistended. No hepato-splenomegaly , or palpable masses. No guarding. MUSCULOSKELETAL: Extremities without clubbing, cyanosis, or edema. No joint tenderness, effusion, or edema noted. No calf tenderness. Negative Homans sign bilaterally. NEUROLOGICAL: Awake and alert. Cranial nerves II through XII intact. Motor and sensory within normal limits. Five out of 5 muscle strength in all muscle groups. Normal speech. Laboratory Laboratory Tests Test 06/17/17 16:00 06/17/17 18:00 White Blood Count 5.9 Red Blood Count 3.66 Hemoglobin 11.4 Hematocrit 34.5 Mean Corpuscular Volume 94.3 Mean Corpuscular Hemoglobin 31.1 Mean Corpuscular Hemoglobin Concent 32.9 Red Cell Distribution Width 13.7 Platelet Count 185 Mean Platelet Volume 7.8 Neutrophils (%) (Auto) 75.6 Lymphocytes (%) (Auto) 12.4 Monocytes (%) (Auto) 8.4 Eosinophils (%) (Auto) 3.2 Basophils (%) (Auto) 0.4 Neutrophils # (Auto) 4.5 Lymphocytes # (Auto) 0.7 Monocytes # (Auto) 0.5 Eosinophils # (Auto) 0.2 Basophils # (Auto) 0.0 CBC Comment DIFF FINAL Differential Comment Prothrombin Time 10.2 Prothromb Time International Ratio 0.9 Activated Partial Thromboplast Time 23.7 Blood Urea Nitrogen 26 Creatinine 1.89 Random Glucose 291 Total Protein 5.9 Albumin 2.8 Calcium Level 7.9 Magnesium Level 2.0 Alkaline Phosphatase 63 Aspartate Amino Transf (AST/SGOT) 11 Alanine Aminotransferase (ALT/SGPT) 16 Total Bilirubin 0.3 Sodium Level 139 Potassium Level 4.8 Chloride Level 111 Carbon Dioxide Level 18.8 Anion Gap 9 Estimat Glomerular Filtration Rate 26 Total Creatine Kinase 62 Troponin I LESS THAN 0.02 Urine Color LIGHT-YELLOW Urine Turbidity CLEAR Urine pH 5.5 Urine Specific [place] 1.009 Urine Protein NEG Urine Glucose (UA) 150 Urine Ketones NEG Urine Occult Blood NEG Urine Nitrite NEG Urine Bilirubin NEG Urine Urobilinogen LESS THAN 2.0 Urine Leukocyte Esterase TRACE Urine RBC LESS THAN 1 Urine WBC 3 Urine Squamous Epithelial Cells <1 Urine Mucus FEW Microscopic Urinalysis Comment CULT NOT INDICATED Result Diagram: 06/17/17 1600 06/17/17 1600 [place] VTE Risk Assessment Caprini VTE Risk Assessment: Mod/High Risk (score >= 2) Caprini Risk Assessment Model Point Value = 1 Point Value = 2 Point Value = 3 Point Value = 5 Age 41-60 Minor surgery BMI > 25 kg/m2 Swollen legs Varicose veins or History of unexplained or recurrent spontaneous Oral contraceptives or hormone replacement Sepsis (< 1 month) Serious lung disease, including pneumonia (< 1 month) Abnormal pulmonary function Acute myocardial infarction Congestive heart failure (< 1 month) History of inflammatory bowel disease Medical patient at bed rest Age 61-74 Arthroscopic surgery Major open surgery (> 45 min) Laparoscopic surgery (> 45 min) Malignancy Confined to bed (> 72 hours) Immobilizing plaster cast Central venous access Age >= 75 History of VTE Family history of VTE Factor V Leiden Prothrombin [id number] Lupus anticoagulant Anticardiolipin antibodies Elevated serum homocysteine Heparin-induced thrombocytopenia Other congenital or acquired thrombophilia Stroke (< 1 month) Elective arthroplasty Hip, pelvis, or leg fracture Acute spinal cord injury (< 1 month) Prophylaxis Regimen Total Risk Factor Score Risk Level Prophylaxis Regimen 0-1 Low Early ambulation 2 Moderate Order ONE of the following: *Sequential Compression Device (SCD) *Heparin 5000 units SQ BID 3-4 Higher Order ONE of the following medications: *Heparin 5000 units SQ TID *Enoxaparin/Lovenox 40 mg SQ daily (WT < 150 kg, CrCl > 30 mL/min) *Enoxaparin/Lovenox 30 mg SQ daily (WT < 150 kg, CrCl > 10-29 mL/min) *Enoxaparin/Lovenox 30 mg SQ BID (WT < 150 kg, CrCl > 30 mL/min) AND/OR *Sequential Compression Device (SCD) 5 or more Highest Order ONE of the following medications: *Heparin 5000 units SQ TID (Preferred with Epidurals) *Enoxaparin/Lovenox 40 mg SQ daily (WT < 150 kg, CrCl > 30 mL/min) *Enoxaparin/Lovenox 30 mg SQ daily (WT < 150 kg, CrCl > 10-29 mL/min) *Enoxaparin/Lovenox 30 mg SQ BID (WT < 150 kg, CrCl > 30 mL/min) AND *Sequential Compression Device (SCD) Assessment and Plan Assessment and Plan 81-year-old female with a past medical history significant for coronary artery disease, insulin-dependent diabetes mellitus, GERD, hypertension and history of CVA presents with syncopal event and altered mental status with persistent lip numbness. 1. Altered mental status/TIA Symptoms have resolved except for residual lip numbness Neurology consulted, appreciate recommendations MRI/MRA brain pending Echo pending Carotid ultrasound pending A1c, lipid profile, TSH, B12 pending 2. Insulin-dependent diabetes mellitus Continue home Lantus SSI 3. CKD Creatinine 1.89, at baseline 4. Mcdonough laceration Wound care consulted Does not appear to be infected at this time 5. Coronary artery disease/hypertension/GERD/anxiety/depression Continue home medications FEN Heart healthy diet once patient has passed bedside swallow eval Electrolytes: Monitor and replete when necessary Heparin Bella Greco MD Jun 17, 2017 20:45
[2017-06-17] MEDS: SODIUM CHLORIDE 0.9% FLUSH 5 ML FLUSH IV FLUSH SCH (20:57)
[2017-06-17] MEDS ORDERED: DOXEPIN HCL 10 MG CAP PO SCH (21:00)
[2017-06-17] MEDS: BRIMONIDINE TARTRATE 0.2% OPHT SOLN 5 ML BTL EACH EYE SCH (21:00)
[2017-06-17] MEDS ORDERED: LATANOPROST 0.005% OPHT SOLN 2.5 ML BTL EACH EYE SCH (21:00)
--- NOTE | 2017-06-17 21:40 | RADRPT ---
EXAM DATE/TIME: 06/17/2017 20:48 [facility] COMPARISON: MRI BRAIN W/O CONTRAST, September 28, 2016, 14:13. INDICATIONS : CVA. MEDICAL HISTORY : Hypertension. Hypercholesterolemia. Diabetes mellitus type 2. CAD. SURGICAL HISTORY : Cholecystectomy. Discectomy, lumbar. Gastric bypass x2 ENCOUNTER: Initial ACUITY: 1 day PAIN SCORE: 3/10 LOCATION: Bilateral cranial TECHNIQUE: Multiplanar, multisequence MRI of the brain was performed without contrast. FINDINGS: CEREBRUM: The ventricles are normal for age. No evidence of midline shift, mass lesion, hemorrhage or acute in farction. No extraaxial fluid collections are seen. The pituitary gland and suprasellar cistern are normal in configuration. WHITE MATTER: Some mild scattered areas of T2 prolongation periventricular white matter. A focal area of T2 prolon gation measuring up to 1.5 cm located in the white matter of the left suprasylvian region is stable f rom prior MR in September 2016. POSTERIOR FOSSA: The cerebellum and brainstem are intact. The 4th ventricle is midline. The cerebellopontine angle is unremarkable. The cerebellar tonsils are normal in position. DIFFUSION IMAGING: No focal areas of restricted diffusion are seen. No evidence of acute infarction. EXTRACRANIAL: The visualized portions of the orbits and paranasal sinuses are unremarkable. CONCLUSION: No acute findings in the brain. No evidence of acute stroke. Stable white matter signal abnormaliti es in the left parietal region, unchanged from September 2016. James Briseno MD on June 17, 2017 at 21:36 Board Certified Radiologist. This report was verified electronically.
--- NOTE | 2017-06-17 21:41 | RADRPT ---
EXAM DATE/TIME: 06/17/2017 20:48 [facility] COMPARISON: No previous studies available for comparison. INDICATIONS : TIA. MEDICAL HISTORY : Diabetes mellitus type 2. Hypertension. Hypercholesterolemia. CAD. SURGICAL HISTORY : Cholecystectomy. Discectomy, lumbar. Gastric bypass x2 ENCOUNTER: Initial ACUITY: 1 day PAIN SCORE: 3/10 LOCATION: Bilateral cranial Patient was treated with . Please note a normal MRA of the brain does not entirely exclude the possibility of a small aneurysm, nor the possibility of distal intracranial vessel disease. TECHNIQUE: 3D time of flight MRA was performed. Source images, multiplanar STS MIP, and 3D volume MIP reconstru ctions were reviewed. FINDINGS: There is excellent visualization of the major intracranial arteries out to the second-order branch ve ssels. There is no evidence for aneurysm, vessel truncation or stenosis, and no evidence for vascula r malformation. Flow is seen in the anterior communicating artery and both PCOM. CONCLUSION: Negative MRA. Complete [place] of [place]. James Briseno MD on June 17, 2017 at 21:38 Board Certified Radiologist. This report was verified electronically.
[2017-06-17 22:15] VITALS: O2SAT 97
[2017-06-17] MEDS: INSULIN ASPART SUPPLEMENTAL SCALE SQ SCH (22:25)
[2017-06-17] MEDS: INSULIN DETEMIR 100 UNITS/ML VIAL SQ SCH (22:25)
[2017-06-17 22:27] LABS: HEMOGLOBIN A1a 1.8 %; HEMOGLOBIN A1b 2.3 %; HEMOGLOBIN Ao 80.1 %; HEMOGLOBIN LA1C 3.6 %; HEMOGLOBIN P3 5.1 %
[2017-06-17] MEDS: HEPARIN SODIUM - SQ 10,000 UNITS/ML VIAL SQ SCH (22:27)
[2017-06-18 05:03] VITALS: BP 191/103; PULSE 69; RESP 20; TEMP 97.6; O2SAT 95
[2017-06-18 05:19] VITALS: BP 177/82; PULSE 69; RESP 20; TEMP 97.6; O2SAT 95
[2017-06-18 07:13] LABS: BICARBONATE 17.7 MEQ/L (21.0-32.0); HDL CHOLESTEROL 74.1 MG/DL (40.0-60.0); POTASSIUM 4.3 MEQ/L (3.5-5.1)
[2017-06-18 07:20] VITALS: PULSE 59
[2017-06-18 08:00] VITALS: BP 227/96; PULSE 65; RESP 20; TEMP 98.1; O2SAT 96
[2017-06-18] MEDS: INSULIN ASPART SUPPLEMENTAL SCALE SQ SCH ×2 (08:00→12:00)
[2017-06-18] MEDS: HEPARIN SODIUM - SQ 10,000 UNITS/ML VIAL SQ SCH (08:06)
[2017-06-18] MEDS: SODIUM CHLORIDE 0.9% FLUSH 5 ML FLUSH IV FLUSH SCH (08:06)
[2017-06-18] MEDS: INSULIN DETEMIR 100 UNITS/ML VIAL SQ SCH (08:06)
--- NOTE | 2017-06-18 08:34 | HHI.PR ---
Subjective Remarks Patient in nad. Says she is back at baseline. Feels much better and would like to go home. Denies any chest pain or sob. No n/v/d/c. No focal motor deficit. However she feels her arms are weaker. No palpitations. Objective Vitals Vital Signs Date Time Temp Pulse Resp B/P (MAP) Pulse Ox O2 Delivery O2 Flow Rate FiO2 06/18/17 07:20 59 06/18/17 05:19 97.6 69 20 177/82 (113) 95 06/17/17 22:15 97 06/17/17 18:55 97 06/17/17 18:00 59 18 200/93 (128) 57 18 188/79 (115) 65 18 187/79 (115) 06/17/17 16:45 58 20 145/69 (94) 99 Room Air 06/17/17 16:26 97 Room Air 06/17/17 15:01 97.7 61 16 135/60 (85) 99 Result Diagram: 06/17/17 1600 06/18/17 0619 Imaging Last Impressions Head CT 06/17/[id number] Signed Impressions: Service Date/Time: Saturday, June 17, 2017 16:41 - CONCLUSION: No acute disease. Yosi Gaston MD Chest X-Ray [id number]/17/[id number] Signed Impressions: Service Date/Time: Saturday, June 17, 2017 15:59 - CONCLUSION: Lungs are grossly clear. Left hemidiaphragm is elevated. Pronounced leftward lumbar scoliosis. Yosi Gaston MD Head Magnetic Resonance Angiography 06/17/17 0000 Signed Impressions: Service Date/Time: Saturday, June 17, 2017 20:48 - CONCLUSION: Negative MRA. Complete [place] of [place]. James Briseno MD Carotid Artery Ultrasound 06/17/17 0000 Signed Impressions: Service Date/Time: Saturday, June 17, 2017 19:44 - CONCLUSION: Mild plaque formation with hemodynamic profile characteristic of less than 50%% stenosis bilaterally. James Briseno MD Brain MRI 06/17/17 0000 Signed Impressions: Service Date/Time: Saturday, June 17, 2017 20:48 - CONCLUSION: No acute findings in the brain. No evidence of acute stroke. Stable white matter signal abnormalities in the left parietal region, unchanged from September 2016. James Briseno MD Objective Remarks GENERAL: female lying in bed SKIN: 10 cm superficial laceration on the left anterior avery. No surrounding erythema. No purulent discharge. CARDIOVASCULAR: Regular rate and rhythm without murmurs, gallops, or rubs. RESPIRATORY: Clear to auscultation. Breath sounds equal bilaterally. No wheezes , rales, or rhonchi. GASTROINTESTINAL: Abdomen soft, non-tender, nondistended. No hepato-splenomegaly , or palpable masses. No guarding. MUSCULOSKELETAL: Extremities without clubbing, cyanosis, or edema. No joint tenderness, effusion, or edema noted. No calf tenderness. Negative Homans sign bilaterally. NEUROLOGICAL: Awake and alert. Cranial nerves II through XII intact. Motor and sensory within normal limits. Five out of 5 muscle strength in all muscle groups. Normal speech. A/P Assessment and Plan 81-year-old female with a past medical history significant for coronary artery disease, insulin-dependent diabetes mellitus, GERD, hypertension and history of CVA presents with syncopal event and altered mental status with persistent lip numbness. Altered mental status/TIA Symptoms have resolved except for residual lip numbness Neurology consulted, appreciate recommendations MRI/MRA brain reviewed no acute stroke Echo pending Holter monitor Carotid ultrasound without significant stenosis 50 %c bilateral A1c 6.9 Lipid profile, reviewed TSH, B12 nl Insulin-dependent diabetes mellitus, controlled a1c is 6.9 Continue home Lantus SSI CKD Creatinine 1.89, at baseline Avery laceration Wound care consulted Does not appear to be infected at this time Coronary artery disease/hypertension/GERD/anxiety/depression Continue home medications DVT ppx SCD/TEDS, heparin SQ Improved and now back to baseline. Imaging normal. Discharged if cleared by neurology Discharge Planning DC home in stable condition. To f/u as OP with PCP and consultants Activity ad sameera as maria isabel Meds per med reconciliations Diet: healthy heart diet and Diabetic Diet. Atiya Mckenna MD Jun 18, 2017 08:33
[2017-06-18] MEDS ORDERED: hydrALAZINE HCL 10 MG TAB PO PRN (08:45)
[2017-06-18] MEDS ORDERED: PANTOPRAZOLE SOD 40 MG DELAYED RELEASE TAB PO SCH (09:00)
[2017-06-18] MEDS ORDERED: LISINOPRIL 10 MG TAB PO SCH (09:00)
[2017-06-18] MEDS ORDERED: ISOSORBIDE MONONITRATE 30 MG TAB PO SCH (09:00)
[2017-06-18] MEDS ORDERED: ASPIRIN 81 MG CHEW TAB PO SCH (09:00)
[2017-06-18] MEDS ORDERED: FLUoxetine HCL 20 MG CAP PO SCH (09:00)
[2017-06-18] MEDS ORDERED: LACTULOSE SYRUP 20 GM/30 ML CUP PO PRN (09:45)
[2017-06-18] MEDS ORDERED: NALOXONE HCL 0.4 MG/ML AMP IV PUSH PRN (09:45)
[2017-06-18] MEDS ORDERED: SENNOSIDES 8.6 MG TAB PO PRN (09:45)
[2017-06-18] MEDS ORDERED: BISACODYL 10 MG SUPP RECTAL PRN (09:45)
[2017-06-18] MEDS ORDERED: ACETAMINOPHEN/HYDROcodone 325 MG/5 MG TAB PO PRN (09:45)
[2017-06-18] MEDS ORDERED: MAGNESIUM HYDROXIDE SUSP 30 ML CUP PO PRN (09:45)
[2017-06-18] MEDS: BRIMONIDINE TARTRATE 0.2% OPHT SOLN 5 ML BTL EACH EYE SCH (10:32)
--- NOTE | 2017-06-18 10:39 | EKG ---
Date Performed: 06/17/2017 Time Performed: 16:15:53 PTAGE: 81 years EKG: SINUS BRADYCARDIA SEPTAL MYOCARDIAL INFARCTION ABNORMAL ECG PREVIOUS TRACING : 09/27/2016 20.52 DOCTOR: Omero Briones Interpretating Date/Time 06/18/2017 10:38:45
[2017-06-18 12:00] VITALS: BP 141/66; PULSE 69; RESP 20; TEMP 98.4; O2SAT 96
[2017-06-18] MEDS ORDERED: ASPI81 PO (14:17)
--- NOTE | 2017-06-18 14:18 | HHI.DCPOC ---
Discharge Care Plan Goals to Promote Your Health * To prevent worsening of your condition and complications * To maintain your health at the optimal level Directions to Meet Your Goals Take your medications as prescribed Follow your dietary instruction Follow activity as directed Keep your appointments as scheduled Take your immunizations and boosters as scheduled If your symptoms worsen call your PCP, if no PCP go to Urgent Care Center or Emergency Room Smoking is Dangerous to Your Health. Avoid second hand smoke Call the 24-hour hour crisis hotline for domestic abuse at Atiya Mckenna MD Jun 18, 2017 14:18
--- NOTE | 2017-06-18 14:41 | MB ---
cc: DEBO HONG M.D. DATE OF CONSULTATION: 06/18/2017 REASON FOR CONSULTATION: Rule out stroke. Rule out Transient ischemic attack HISTORY OF PRESENT ILLNESS Miss Sierra is a very nice 81-year-old woman who has history of hypertension, coronary artery disease history of stroke in the past insulin dependent diabetes. Yesterday morning she awoke early in the morning and noted that she was feeling lightheaded and faint. She had a headache as well which she described as electrical current running through her head, when she stood up and she felt very light headed and fell because of lightheadedness. There is no loss of consciousness. She did relate some visual hallucinations as well. Following this seeing visual images and blurring of her vision in both eyes. She was found to be hypotensive when she presented to her physician's office the morning at 90/40. She had no focal deficits. She did complain of some tingling around the lips but no other symptoms. No expressive aphasia, etc. She feels back to baseline state at this time. PAST MEDICAL HISTORY: History of stroke in the past, anxiety, asthma, diabetes, hypertension, coronary disease with stent placement, gastroesophageal reflux disease, gastric bypass surgery. Cardiac stent in May 2012, cholecystectomy, right hernia repair MEDICATIONS: 1. Medicines at home doxepin 2. latanoprost 3. ophthalmic drops 4. Brimonidine 5. Lantus insulin 6. lisinopril 7. hydrocodone 8. Temazepam 9. Omeprazole 10. Vitamin D2 11. isosorbide 12. fluoxetine ALLERGIES CODEINE ERYTHROMYCIN MORPHINE NEUROLOGIC EXAMINATION: VITAL SIGNS: Blood pressure is 141/66, pulse is 69, respiratory rate is 20, temperature 98.0 degrees. Higher cortical functions are normal including speech. Cranial nerves are intact including visual pablo. Motor exam 5/5 strength in groups. There is no drift. Reflexes symmetric. MRI of the brain shows ischemic demyelinization, stable white matter. signal abnormalities left parietal region, unchanged from September 2016. No acute change present. The carotid ultrasound no evidence of any significant stenosis. The MRA of the brain is unremarkable. CT of the brain no acute change. LABORATORY DATA The white count is 5,900, hemoglobin 11.4 hematocrit 34% platelet count 185,000. Sodium is 139, potassium 4.8, chloride 111, BUN is 26, creatinine 1.89, glucose 291, hemoglobin A1c 6.9, AST 11, ALT 16, LDL 72, HDL 74, cholesterol 171, triglycerides 126, B12 422, PT 10.2, INR 1.9, APTT 23.7. EKG sinus bradycardia septal myocardial infarction. IMPRESSION Symptoms are most suggestive of orthostatic hypotension as opposed to TIA. RECOMMENDATIONS Will check echocardiogram recommend starting low-dose aspirin 81 mg daily for the remote chance of transient ischemic attack. MD REGINA Infante/miah /2:02 PM /2:26 PM
[2017-06-18] MEDS ORDERED: DOCUSATE SODIUM 50 MG/SENNA 8.6 MG TAB PO SCH (21:00)
--- NOTE | 2017-06-20 23:22 | HM ---
Date Performed: 06/18/2017 Time Performed: 10:25:00 HOOKUP DATE: 06/18/17 10:25:00 AM [facility] ANALYSIS START TIME: 06/18/2017 10:30:00 AM ANALYSIS END TIME: 06/19/2017 10:20:20 AM PATIENT AGE: 81 PATIENT HEIGHT PATIENT WEIGHT DRUG LIST PATIENT DIAGNOSIS: dizziness TEST NARRATIVE: The patient's average heart rate was 65 BPM. No episodes of tachycardia wer e noted. Heart rates less than 50 BPM were noted < 1% of the time. No pauses exceeding 2.0 secon ds were noted. 2 ventricular ectopics, which represented < 1% of the total beat count, were noted . The highest ventricular ectopic frequency occurred from 07:00 PM to 08:00 PM Dania. During this luis f e 1 VE(s) occurred. Ventricular ectopics were observed as 2 isolated beat(s) only. No couplets or r uns were noted. 2 supraventricular ectopics, which represented < 1% of the total beat count, were noted. The highest supraventricular ectopic frequency occurred from 07:00 PM to 08:00 PM Dania. Duri ng this time 2 SVE(s) occurred. No episodes of ST depression (defined as -1.0 mm or more) were no reema in channel 1. No episodes of ST depression (defined as -1.0 mm or more) were noted in channel 2. No episodes of ST depression (defined as -1.0 mm or more) were noted in channel 3. TEST INTERPRETATION: 1) Underlying Sinus rhythm 2) No arrhythmias noted 3) Rare PVC/PAC 4) No diary returned with symptoms Signed by : Dung Box
== END 2017-06-18 17:29 | disposition home health service (06) ==
LOC: NEPC 14:53 → NEDA 18:55 → N05A 21:18
PROVIDERS: ADMIT Hospitalist; ATTEND Hospitalist
DX: G45.9 Transient cerebral ischemic attack, unspecified (principal); R55 Syncope and collapse; R51 Headache; R42 Dizziness and giddiness; R44.1 Visual hallucinations; I12.9 Hypertensive chronic kidney disease with stage 1 through stage 4 chronic kidney disease, or unspecified chronic kidney disease; N18.9 Chronic kidney disease, unspecified; I95.9 Hypotension, unspecified; S81.812A Laceration without foreign body, left lower leg, initial encounter; I25.10 Atherosclerotic heart disease of native coronary artery without angina pectoris; R00.1 Bradycardia, unspecified; J45.909 Unspecified asthma, uncomplicated; R94.31 Abnormal electrocardiogram [ECG] [EKG]; F32.9 Major depressive disorder, single episode, unspecified; E78.00 Pure hypercholesterolemia, unspecified; E11.22 Type 2 diabetes mellitus with diabetic chronic kidney disease; K21.9 Gastro-esophageal reflux disease without esophagitis; F41.9 Anxiety disorder, unspecified; Z86.73 Personal history of transient ischemic attack (TIA), and cerebral infarction without residual deficits; Z95.5 Presence of coronary angioplasty implant and graft; Z98.84 Bariatric surgery status; W19.XXXA Unspecified fall, initial encounter
CPT/HCPCS: 70450; 70544; 70551; 71010; 80048; 80053; 80061; 81001; 82550; 82607; 82948; 83036; 83735; 84443; 84484; 85025; 85610; 85730; 93005; 93225; 93226; 93880; 96125; 96372; 97162; 97166; 99285; G0378; G8987; G8988; G9168; G9169; G9170; J1644; J1815; J7030

== ENCOUNTER 2017-07-03 15:34 | Observation (INO) | payer MEDICARE ==
[2017-07-03] VITALS (11 sets, daily range): BP systolic 130–265; BP diastolic 69–142; PULSE 48–71; RESP 16–20; TEMP 98.5; O2SAT 95–99
[~2017-07-03] VITALS: Ht 157.5 cm; Wt 49.9 kg
[~2017-07-03 15:34] MED LIST changes: -ASPI1TAB69 PO; +ASPI81 PO; +BRIM0.2S4 EACH EYE; +DOXE25CA2 PO; +LATA0.002 EACH EYE; -SUCR1TAB PO
[2017-07-03] MEDS ORDERED: MORPHINE SULFATE 4 MG/ML INJ IV PUSH ONE ×2 (16:00→19:00)
[2017-07-03] MEDS ORDERED: ISOSORBIDE DINITRATE 10 MG TAB PO STA (16:00)
[2017-07-03] MEDS ORDERED: SODIUM CHLORIDE 0.9% FLUSH 10 ML FLUSH IVF PRN (16:00)
[2017-07-03] MEDS ORDERED: ONDANSETRON HCL 4 MG/2 ML VIAL IV PUSH ONE ×2 (16:00→19:00)
[2017-07-03 16:20] LABS: AUTOMATED NEUTROPHIL # 8.7 TH/MM3 (1.8-7.7); BASOPHIL % 0.4 % (0.0-2.0); EOSINOPHIL # 0.1 TH/MM3 (0-0.4); EOSINOPHIL % 1.2 % (0.0-4.0); HEMO FLAGS DIFF FINAL; LYMPH % 6.6 % (9.0-44.0); LYMPHOCYTE # 0.7 TH/MM3 (1.0-4.8); MEAN CELL VOLUME 89.1 FL (80.0-100.0); MEAN CORPUSCULAR HGB CONC 32.5 % (32.0-36.0); MONO % 4.4 % (0.0-8.0); NEUT % 87.4 % (16.0-70.0); PLATELET COUNT 282 TH/MM3 (150-450); RED BLOOD COUNT 5.16 MIL/MM3 (4.00-5.30); RED CELL DISTRIBUTION WIDTH 12.5 % (11.6-17.2); WHITE BLOOD COUNT 9.9 TH/MM3 (4.0-11.0)
[2017-07-03 16:21] LABS: BLOOD, URINE SMALL (NEG); GLUCOSE,URINE 250 mg/dL (NEG); KETONE, URINE 15 mg/dL (NEG); NITRITE,URINE NEG (NEG)
[2017-07-03 16:30] LABS: CHLORIDE 102 MEQ/L (98-107); POTASSIUM 4.6 MEQ/L (3.5-5.1); SODIUM (NA) 135 MEQ/L (136-145)
[2017-07-03 16:31] LABS: RBC, URINE 0-3 /hpf (0-3); URINE COLOR STRAW (YELLW/STRAW)
[2017-07-03 16:32] LABS: COMMENT (UR) CULT NOT INDICATED; CULTURE IF INDICATED CULT NOT INDICATED; SQUAMOUS EPITHELIAL CELL URINE 0-5 /hpf (0-5)
[2017-07-03 16:34] LABS: ANION GAP 9 MEQ/L (5-15); BICARBONATE 24.1 MEQ/L (21.0-32.0); BLOOD UREA NITROGEN 17 MG/DL (7-18)
[2017-07-03 16:35] LABS: APTT (PATIENT) 24.3 SEC (24.3-30.1)
[2017-07-03 16:37] LABS: ALT (GPT) 20 U/L (10-53); AST (GOT) 14 U/L (15-37); GLOMERULAR FILTRATION RATE 31 ML/MIN (>89)
[2017-07-03 16:39] LABS: TOTAL BILIRUBIN ADULT 0.6 MG/DL (0.2-1.0)
[2017-07-03 16:40] LABS: ALKALINE PHOSPHATASE 93 U/L (45-117)
[2017-07-03 16:43] LABS: CREATINE KINASE 44 U/L (26-192)
--- NOTE | 2017-07-03 17:07 | RADRPT ---
EXAM DATE/TIME: 07/03/2017 16:23 [facility] COMPARISON: CHEST SINGLE AP, June 17, 2017, 15:59. INDICATIONS : Chest discomfort. MEDICAL HISTORY : Diabetes mellitus type 2. Hypertension. Hypercholesterolemia. CAD SURGICAL HISTORY : Cholecystectomy. Discectomy, lumbar. Gastric bypass x2 ENCOUNTER: Initial ACUITY: 3 days PAIN SCORE: 4/10 LOCATION: Bilateral chest FINDINGS: A single view of the chest demonstrates the lungs to be symmetrically aerated with biapical emphysema tous changes. Lungs are otherwise clear of acute infiltrate. No effusions. Heart size is normal. Dext roscoliosis of the dorsal spine with associated mild degenerative changes. Multiple surgical clips in the left upper abdominal quadrant. CONCLUSION: No acute infiltrate. Mild emphysematous changes in the apices. Rehan Bell MD on July 03, 2017 at 17:03 Board Certified Radiologist. This report was verified electronically.
--- NOTE | 2017-07-03 17:15 | RADRPT ---
EXAM DATE/TIME: 07/03/2017 16:52 [facility] COMPARISON: CT BRAIN W/O CONTRAST, June 17, 2017, 16:41. INDICATIONS : Cephalgia. RADIATION DOSE: 67.15 CTDIvol (mGy) ; Tabletop CT Head MEDICAL HISTORY : Cardiovascular disease. Cerebrovascular disease. Gastroesophageal reflux disease.Diabetes. Hyperten neisha. Renal failure, chronic. SURGICAL HISTORY : Cholecystectomy. Gastric bypass. ENCOUNTER: Initial ACUITY: 3 days PAIN SCALE: 7/10 LOCATION: cranial TECHNIQUE: Multiple contiguous axial images were obtained of the head. Using automated exposure control and adj ustment of the mA and/or kV according to patient size, radiation dose was kept as low as reasonably a chievable to obtain optimal diagnostic quality images. DICOM format image data is available electro nically for review and comparison. FINDINGS: CEREBRUM: There is mild generalized atrophy. Ventricles are normal. There is stable oval 8mm low density in the left basal ganglia. No midline shift, mass lesion, hemorrhage or acute infarction. No extra-axial fluid collections are seen. POSTERIOR FOSSA: The cerebellum and brainstem are intact. The 4th ventricle is midline. The cerebellopontine angle i s unremarkable. EXTRACRANIAL: Visualized sinuses are clear. SKULL: The calvaria is intact. No evidence of skull fracture. CONCLUSION: Stable noncontrast head CT. No acute intracranial abnormality is identified. Troy Ibarra MD on July 03, 2017 at 17:11 Board Certified Radiologist. This report was verified electronically.
--- NOTE | 2017-07-03 17:16 | PD ---
HPI Chief Complaint: GI Complaint Time Seen by Provider: 16:00 Travel History International Travel<30 days: No Contact w/Intl Traveler<30days: No Traveled to known affect area: No History of Present Illness HPI Patient is a 81-year-old female who comes in complaining of a dominant pain. She says she has had the pain for the past few days with occasional nausea and vomiting, however today, worse. She says the pain is in the middle of her abdomen. She also complains of chest pain and headache. She has not taken her medications today. She denies fever or chills. She does report burning with urination. She says that she was told she had a yeast infection and has been treated by her doctor, but says it has not gotten better. She says "I feel like I'm going to ." PFSH Past Medical History Hx Anticoagulant Therapy: Yes (ASPIRIN) Arthritis: No Anxiety: Yes Depression: Yes Heart Rhythm Problems: No Cancer: No Cardiovascular Problems: Yes High Cholesterol: Yes Chest Pain: Yes Congestive Heart Failure: No Cerebrovascular Accident: Yes Diabetes: Yes (INSULIN) Patient Takes Glucophage: No Diminished Hearing: No Endocrine: Yes Gastrointestinal Disorders: Yes GERD: Yes Genitourinary: Yes Headaches: Yes Hypertension: Yes Musculoskeletal: No Neurologic: No Psychiatric: Yes Reproductive: No Respiratory: No Migraines: No Pneumonia: Yes Renal Failure: Yes Seizures: No Thyroid Disease: No Ulcer: Yes Tetanus Vaccination: > 5 Years Influenza Vaccination: Yes ?: Not Menopausal: Yes : 4 Para: 3 Miscarriage: 1 Past Surgical History Abdominal Surgery: Yes (STOMACH BYPASS SURGERY) Cardiac Surgery: Yes (STENT TO HEART MAY 2012) Cholecystectomy: Yes Ear Surgery: No Endocrine Surgery: No Eye Surgery: No Genitourinary Surgery: No Gynecologic Surgery: No Oral Surgery: No Thoracic Surgery: No Other Surgery: Yes (HEART CATH WITH STENT PLACED, HERNIA (RIGHT) REPAIR) Social History Alcohol Use: Yes (DAILY (DENIES)) Tobacco Use: No Substance Use: No Allergies-Medications (Allergen,Severity, Reaction): Coded Allergies: codeine (Unverified Allergy, Severe, "MAKES HER MEAN", 07/03/17) erythromycin base (Unverified Allergy, Severe, Itching, 07/03/17) morphine (Unverified Allergy, Severe, ITCHING, 07/03/17) Reported Meds & Prescriptions Reported Meds & Active Scripts Active Tgt Aspirin (Aspirin) 81 Mg Chw 81 Mg PO DAILY Reported Latanoprost Opth Drops (Latanoprost) 0.005% Drops 1 Drop EACH EYE HS Refrigerate until opened. Brimonidine Opth Drops (Brimonidine Tartrate) 0.2% Soln 1 Drop EACH EYE BID Lantus Inj (Insulin Glargine) 1,000 Unit/10 Ml Vial 5 Units SQ HS Lantus Inj (Insulin Glargine) 1,000 Unit/10 Ml Vial 5 Units SQ AC BREAKFAST Lisinopril 10 Mg Tab 10 Mg PO DAILY Pantoprazole (Pantoprazole Sodium) 40 Mg Tab 40 Mg PO DAILY Vitamin D2 (Ergocalciferol) 2,000 Unit Tab 50,000 Units PO WEEKLY Isosorbide Mononitrate ER (Isosorbide Mononitrate) 30 Mg Maldonado 30 Mg PO DAILY Fluoxetine (Fluoxetine HCl) 40 Mg Cap 40 Cap PO DAILY Review of Systems Except as stated in HPI: all other systems reviewed are Neg General / Constitutional: No: Fever, Chills HENT: No: Headaches, Lightheadedness Cardiovascular: Positive: Chest Pain or Discomfort Respiratory: No: Cough, Shortness of Breath Gastrointestinal: Positive: Nausea, Vomiting, Abdominal Pain, No: Diarrhea, Constipation Genitourinary: Positive: Dysuria Musculoskeletal: No: Edema, Pain Skin: No Rash, No Change in Pigmentation Neurologic: No: Weakness, Dizziness, Syncope Physical Exam Narrative GENERAL: Awake and alert, appears uncomfortable. SKIN: Focused skin assessment warm/dry. HEAD: Atraumatic. Normocephalic. EYES: Pupils equal and round. No scleral icterus. ENT: Mucous membranes pink and moist. NECK: Trachea midline. No JVD. CARDIOVASCULAR: Regular rate and rhythm. No murmur appreciated. RESPIRATORY: No accessory muscle use. Clear to auscultation. Breath sounds equal bilaterally. GASTROINTESTINAL: Abdomen soft, diffuse tenderness to palpation. No rebound or guarding. Right CVA tenderness. MUSCULOSKELETAL: No obvious deformities. No clubbing. No cyanosis. No edema. NEUROLOGICAL: Awake and alert. No obvious cranial nerve deficits. Motor grossly within normal limits. Normal speech. PSYCHIATRIC: Appropriate mood and affect; insight and judgment normal. Data Data Last Documented VS Vital Signs Date Time Temp Pulse Resp B/P (MAP) Pulse Ox O2 Delivery O2 Flow Rate FiO2 07/03/17 18:17 68 16 130/75 (93) 95 Nasal Cannula 2.00 07/03/17 15:40 98.5 Orders Orders Ckmb (Isoenzyme) Profile (07/03/17 16:00) Complete Blood Count With Diff (07/03/17 16:00) Comprehensive Metabolic Panel (07/03/17 16:00) Prothrombin Time / Inr (Pt) (07/03/17 16:00) Act Partial Throm Time (Ptt) (07/03/17 16:00) Troponin I (07/03/17 16:00) Chest, Single Ap (07/03/17 16:00) Ecg Monitoring (07/03/17 16:00) Bilateral Bp Monitoring (07/03/17 16:00) Iv Access Insert/Monitor (07/03/17 16:00) Oximetry (07/03/17 16:00) Oxygen Administration (07/03/17 16:00) Sodium Chloride 0.9% Flush (Ns Flush) (07/03/17 16:00) Cta Thor Abd Aorta W Iv C W3d (07/03/17 16:00) Morphine Inj (Morphine Inj) (07/03/17 16:00) Ondansetron Inj (Zofran Inj) (07/03/17 16:00) Urinalysis - C+S If Indicated (07/03/17 16:00) Isosorbide Dinitrate (Isordil) (07/03/17 16:00) Ct Brain W/O Iv Contrast(Rout) (07/03/17 ) Iodixanol 320 Inj (Rad Ct) (Visipaque 32 (07/03/17 17:25) Mri Abdomen W/O Contrast (07/03/17 ) Morphine Inj (Morphine Inj) (07/03/17 19:00) Ondansetron Inj (Zofran Inj) (07/03/17 19:00) Labs Laboratory Tests Test 07/03/17 16:10 White Blood Count 9.9 TH/MM3 Red Blood Count 5.16 MIL/MM3 Hemoglobin 15.0 GM/DL Hematocrit 46.0 % Mean Corpuscular Volume 89.1 FL Mean Corpuscular Hemoglobin 29.0 PG Mean Corpuscular Hemoglobin Concent 32.5 % Red Cell Distribution Width 12.5 % Platelet Count 282 TH/MM3 Mean Platelet Volume 7.7 FL Neutrophils (%) (Auto) 87.4 % Lymphocytes (%) (Auto) 6.6 % Monocytes (%) (Auto) 4.4 % Eosinophils (%) (Auto) 1.2 % Basophils (%) (Auto) 0.4 % Neutrophils # (Auto) 8.7 TH/MM3 Lymphocytes # (Auto) 0.7 TH/MM3 Monocytes # (Auto) 0.4 TH/MM3 Eosinophils # (Auto) 0.1 TH/MM3 Basophils # (Auto) 0.0 TH/MM3 CBC Comment DIFF FINAL Differential Comment Prothrombin Time 10.0 SEC Prothromb Time International Ratio 1.0 RATIO Activated Partial Thromboplast Time 24.3 SEC Urine Color STRAW Urine Turbidity CLEAR Urine pH 6.0 Urine Specific [place] 1.011 Urine Protein 100 mg/dL Urine Glucose (UA) 250 mg/dL Urine Ketones 15 mg/dL Urine Occult Blood SMALL Urine Nitrite NEG Urine Bilirubin NEG Urine Leukocyte Esterase NEG Urine RBC 0-3 /hpf Urine Squamous Epithelial Cells 0-5 /hpf Microscopic Urinalysis Comment CULT NOT INDICATED Blood Urea Nitrogen 17 MG/DL Creatinine 1.60 MG/DL Random Glucose 256 MG/DL Total Protein 7.1 GM/DL Albumin 3.4 GM/DL Calcium Level 9.0 MG/DL Alkaline Phosphatase 93 U/L Aspartate Amino Transf (AST/SGOT) 14 U/L Alanine Aminotransferase (ALT/SGPT) 20 U/L Total Bilirubin 0.6 MG/DL Sodium Level 135 MEQ/L Potassium Level 4.6 MEQ/L Chloride Level 102 MEQ/L Carbon Dioxide Level 24.1 MEQ/L Anion Gap 9 MEQ/L Estimat Glomerular Filtration Rate 31 ML/MIN Total Creatine Kinase 44 U/L Troponin I 0.02 NG/ML [facility] Medical Decision Making Medical Screen Exam Complete: Yes Emergency Medical Condition: Yes Medical Record Reviewed: Yes Interpretation(s) ECG shows sinus bradycardia at 47, no ST elevation or depression. Differential Diagnosis Aortic dissection versus UTI versus colitis versus cholecystitis versus appendicitis Narrative Course Patient is a 81-year-old female comes in complaining of abdominal pain. Exam shows tenderness diffusely throughout the abdomen. IV established, labs sent. Creatinine is 1.6, which is her baseline. Patient given IV fluids, morphine, Zofran. She reports feeling better after these medications. CT chest, abdomen and pelvis performed shows a mass in her uterus, MRI is suggested for further evaluation. MRI of the abdomen and pelvis ordered. Patient signed out to Dr. Andrade to follow-up MRI and disposition the patient. Last 24 hours Impressions Chest X-Ray 07/03/17 1600 Signed Impressions: Service Date/Time: Monday, July 03, 2017 16:23 - CONCLUSION: No acute infiltrate. Mild emphysematous changes in the apices. Rehan Bell MD Aorta CTA 07/03/17 1600 Signed Impressions: Service Date/Time: Monday, July 03, 2017 16:57 - CONCLUSION: 1. No evidence of aortic dissection. 2. Marked uterine enlargement as above MRI is recommended for further evaluation if clinically indicated. 3. 1.2 cm nodule left lobe of the thyroid Moses Painting MD Head CT 07/03/17 0000 Signed Impressions: Service Date/Time: Monday, July 03, 2017 16:52 - CONCLUSION: Stable noncontrast head CT. No acute intracranial abnormality is identified. MD Omar Arredondo Jessica B MD Jul 03, 2017 17:16
[2017-07-03] MEDS ORDERED: IODIXANOL 320 MG/ML 10 ML VIAL (for Rad CT) IVCONTRAST ONE (17:25)
--- NOTE | 2017-07-03 17:40 | RADRPT ---
EXAM DATE/TIME: 07/03/2017 16:57 [facility] COMPARISON: No previous studies available for comparison. INDICATIONS : Lower abdominal pain. Evaluate for aortic dissection. IV CONTRAST: 50 cc Visipaque (iodixanol) IV RADIATION DOSE: 10.02 CTDIvol (mGy) MEDICAL HISTORY : Gastroesophageal reflux disease. Cerebrovascular disease. Cardiovascular diseaseRenal failure, chron ic. Hypertension. Diabetes. SURGICAL HISTORY : Cholecystectomy. Gastric bypass. ENCOUNTER: Initial ACUITY: 3 days PAIN SCALE: 8/10 LOCATION: Left lower quadrant TECHNIQUE: Volumetric scanning was performed using a multi-row detector CT scanner. The data was post processed with a variety of visualization algorithms including full volume maximum intensity projection, multi -planar sliding thin slab reformation, curved planar reformation, and surface rendering techniques. Using automated exposure control and adjustment of the mA and/or kV according to patient size, radiat ion dose was kept as low as reasonably achievable to obtain optimal diagnostic quality images. DICOM format image data is available electronically for review and comparison. FINDINGS: Examination of the lung pablo demonstrates no evidence of pulmonary nodule. No pleural fluid is iden tified. There are centrilobular emphysematous changes throughout both lungs. There is a 1.2 cm nodule in the left lobe of the thyroid. Examination of the mediastinum demonstrates no abnormally enlarged lymph nodes by CT criteria. No axillary or hilar abnormalities are identified. Coronary artery calcif ications are present. The liver and spleen are normal in size and no focal defects are identified. The gallbladder is absen t. The pancreas demonstrates normal contour without evidence of mass or ductal dilatation. There is p revious gastric surgery. The adrenal glands are unremarkable. The right kidney is unremarkable. 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 The uterus is markedly enlarged for a patient of this age measuring 8 x 6 CM with a probable 3.2 cm f ibroid in the fundus as well as fluid in the endometrium. Malignancy is not excluded.MRI is recommend ed for further evaluation if clinically indicated. Examination of the aortic arch demonstrates no evidence of aneurysm or dissection. The descending th oracic aorta is unremarkable and the aortic root is normal in size. The aorta is normal in caliber. T here is no evidence of aneurysm or dissection. The renal artery origins are patent bilaterally. The c eliac axis and superior mesenteric artery origins are also patent. CONCLUSION: 1. No evidence of aortic dissection. 2. Marked uterine enlargement as above MRI is recommended for further evaluation if clinically indica reema. 3. 1.2 cm nodule left lobe of the thyroid Moses Painting MD on July 03, 2017 at 17:30 Board Certified Radiologist. This report was verified electronically.
[2017-07-03] MEDS ORDERED: METOCLOPRAMIDE INJ 10 MG in SODIUM CHLORIDE 0.9% INJ 50 ML IV ONE (19:00)
--- NOTE | 2017-07-03 19:25 | PD ---
Physical Exam Date Seen by Provider: Jul 03, 2017 Time Seen by Provider: 19:24 Narrative Accepted in transfer of care from Dr. Nelson Data Data Last Documented VS Vital Signs Date Time Temp Pulse Resp B/P (MAP) Pulse Ox O2 Delivery O2 Flow Rate FiO2 07/03/17 20:45 62 16 222/111 (148) 98 07/03/17 19:03 Room Air 07/03/17 18:17 2.00 07/03/17 15:40 98.5 Orders Orders Ckmb (Isoenzyme) Profile (07/03/17 16:00) Complete Blood Count With Diff (07/03/17 16:00) Comprehensive Metabolic Panel (07/03/17 16:00) Prothrombin Time / Inr (Pt) (07/03/17 16:00) Act Partial Throm Time (Ptt) (07/03/17 16:00) Troponin I (07/03/17 16:00) Chest, Single Ap (07/03/17 16:00) Ecg Monitoring (07/03/17 16:00) Bilateral Bp Monitoring (07/03/17 16:00) Iv Access Insert/Monitor (07/03/17 16:00) Oximetry (07/03/17 16:00) Oxygen Administration (07/03/17 16:00) Sodium Chloride 0.9% Flush (Ns Flush) (07/03/17 16:00) Cta Thor Abd Aorta W Iv C W3d (07/03/17 16:00) Morphine Inj (Morphine Inj) (07/03/17 16:00) Ondansetron Inj (Zofran Inj) (07/03/17 16:00) Urinalysis - C+S If Indicated (07/03/17 16:00) Isosorbide Dinitrate (Isordil) (07/03/17 16:00) Ct Brain W/O Iv Contrast(Rout) (07/03/17 ) Iodixanol 320 Inj (Rad Ct) (Visipaque 32 (07/03/17 17:25) Mri Abdomen W/O Contrast (07/03/17 ) Morphine Inj (Morphine Inj) (07/03/17 19:00) Ondansetron Inj (Zofran Inj) (07/03/17 19:00) Metoclopramide Inj (Reglan Inj) (07/03/17 19:00) Mri Pelvis W&W/O Contrast (07/03/17 ) Hydromorphone Pf Inj (Dilaudid Pf Inj) (07/03/17 21:00) Sodium Chlor 0.9% 1000 Ml Inj (Ns 1000 M (07/03/17 21:00) Labs Laboratory Tests Test 07/03/17 16:10 White Blood Count 9.9 TH/MM3 Red Blood Count 5.16 MIL/MM3 Hemoglobin 15.0 GM/DL Hematocrit 46.0 % Mean Corpuscular Volume 89.1 FL Mean Corpuscular Hemoglobin 29.0 PG Mean Corpuscular Hemoglobin Concent 32.5 % Red Cell Distribution Width 12.5 % Platelet Count 282 TH/MM3 Mean Platelet Volume 7.7 FL Neutrophils (%) (Auto) 87.4 % Lymphocytes (%) (Auto) 6.6 % Monocytes (%) (Auto) 4.4 % Eosinophils (%) (Auto) 1.2 % Basophils (%) (Auto) 0.4 % Neutrophils # (Auto) 8.7 TH/MM3 Lymphocytes # (Auto) 0.7 TH/MM3 Monocytes # (Auto) 0.4 TH/MM3 Eosinophils # (Auto) 0.1 TH/MM3 Basophils # (Auto) 0.0 TH/MM3 CBC Comment DIFF FINAL Differential Comment Prothrombin Time 10.0 SEC Prothromb Time International Ratio 1.0 RATIO Activated Partial Thromboplast Time 24.3 SEC Urine Color STRAW Urine Turbidity CLEAR Urine pH 6.0 Urine Specific [place] 1.011 Urine Protein 100 mg/dL Urine Glucose (UA) 250 mg/dL Urine Ketones 15 mg/dL Urine Occult Blood SMALL Urine Nitrite NEG Urine Bilirubin NEG Urine Leukocyte Esterase NEG Urine RBC 0-3 /hpf Urine Squamous Epithelial Cells 0-5 /hpf Microscopic Urinalysis Comment CULT NOT INDICATED Blood Urea Nitrogen 17 MG/DL Creatinine 1.60 MG/DL Random Glucose 256 MG/DL Total Protein 7.1 GM/DL Albumin 3.4 GM/DL Calcium Level 9.0 MG/DL Alkaline Phosphatase 93 U/L Aspartate Amino Transf (AST/SGOT) 14 U/L Alanine Aminotransferase (ALT/SGPT) 20 U/L Total Bilirubin 0.6 MG/DL Sodium Level 135 MEQ/L Potassium Level 4.6 MEQ/L Chloride Level 102 MEQ/L Carbon Dioxide Level 24.1 MEQ/L Anion Gap 9 MEQ/L Estimat Glomerular Filtration Rate 31 ML/MIN Total Creatine Kinase 44 U/L Troponin I 0.02 NG/ML [facility] Medical Record Reviewed: Yes Supervised Visit with CHRIS: No Differential Diagnosis Accepted in transfer of care from Dr. Nelson; please refer to her dictation Narrative Course Accepted in transfer of care from Dr. Nelson for follow up of MRI and disposition @ 8:50 PM patient again complains of severe pelvic pain which was her complaint of presentation had had improvement of her blood pressure after receiving her morning dose of Isordil although did not receive her daily dose of lisinopril and 2 doses of morphine for pain management however her pain has returned and blood pressure has again increased therefore will administer Dilaudid 0.5 mg IV for pain control and went to reassess her blood pressure again will administer ADDIE inhibitor consistent with her daily dosage of lisinopril. MRI has been performed reading is pending. Eneida Andrade MD Jul 03, 2017 19:25
[2017-07-03] MEDS ORDERED: GADOBENATE DIM PF 529 MG/ML 10ML VIAL (for RAD MRI) IV ONE (20:00)
[2017-07-03] MEDS: SODIUM CHLOR 0.9% 1000 ML INJ 1,000 ML IV SCH (21:00)
[2017-07-03] MEDS ORDERED: HYDROmorphone HCL PF 1 MG/ML VIAL IV PUSH ONE (21:00)
--- NOTE | 2017-07-03 21:24 | RADRPT ---
EXAM DATE/TIME: 07/03/2017 19:44 [facility] COMPARISON: No previous studies available for comparison. INDICATIONS : Mass. CONTRAST: 10 cc Multihance (gadobenate) IV MEDICAL HISTORY : Hypertension. Hypercholesterolemia. Diabetes mellitus type 2. CAD. SURGICAL HISTORY : Cholecystectomy. Discectomy, lumbar. Gastric bypass x2 ENCOUNTER: Subsequent ACUITY: 1 day PAIN SCORE: 5/10 LOCATION: pelvis TECHNIQUE: Multiplanar, multisequence magnetic resonance imaging of the pelvis was performed. FINDINGS: REPRODUCTIVE: The uterus is enlarged and contains multiple fibroids with the largest measuring 2.7 cm. There is end ometrial thickening for the patient's age. This finding raises the possibility of endometrial carcino ma or hyperplasia. BLADDER: No wall thickening or mass. RETROPERITONEUM: There is no lymphadenopathy. Vascular structures are within normal limits. BOWEL/MESENTERY: Visualized small and large bowel demonstrates no acute abnormality. There is no free fluid. INGUINAL: No lymphadenopathy or hernia. MUSCULOSKELETAL: Bone marrow signal is within normal limits. CONCLUSION: 1. Endometrial thickening for the patient's age. This finding raises the possibility of endometrial c arcinoma or hyperplasia. 2. Enlarged fibroid uterus. Niko Macias MD on July 03, 2017 at 21:18 Board Certified Radiologist. This report was verified electronically.
[2017-07-03] MEDS ORDERED: SODIUM CHLORIDE 0.9% FLUSH 10 ML FLUSH IV FLUSH PRN (22:30)
[2017-07-03] MEDS ORDERED: MAGNESIUM HYDROXIDE SUSP 30 ML CUP PO PRN (22:30)
[2017-07-03] MEDS ORDERED: BISACODYL 10 MG SUPP RECTAL PRN (22:30)
[2017-07-03] MEDS ORDERED: LACTULOSE SYRUP 20 GM/30 ML CUP PO PRN (22:30)
[2017-07-03] MEDS ORDERED: ONDANSETRON HCL 4 MG/2 ML VIAL IVP PRN (22:30)
[2017-07-03] MEDS ORDERED: ACETAMINOPHEN 325 MG TAB PO PRN (22:30)
[2017-07-03] MEDS ORDERED: NALOXONE HCL 0.4 MG/ML AMP IV PUSH PRN (22:30)
[2017-07-03] MEDS ORDERED: HYDROmorphone HCL PF 1 MG/ML VIAL IV PUSH PRN (22:30)
[2017-07-03] MEDS ORDERED: SENNOSIDES 8.6 MG TAB PO PRN (22:30)
[2017-07-03] MEDS ORDERED: ENALAPRILAT 1.25 MG/ML VIAL IV PUSH ONE (22:30)
[2017-07-04] VITALS (19 sets, daily range): BP systolic 78–214; BP diastolic 43–97; PULSE 58–82; RESP 13–25; TEMP 97.7–98.7; O2SAT 94–99
[2017-07-04] MEDS: HEPARIN SODIUM - SQ 10,000 UNITS/ML VIAL SQ SCH ×3 (00:24→19:41)
[2017-07-04] MEDS ORDERED: hydrALAZINE HCL 20 MG/ML VIAL IV PUSH ONE ×2 (04:30)
[2017-07-04 06:16] LABS: AUTOMATED NEUTROPHIL # 10.8 TH/MM3 (1.8-7.7); BASOPHIL # 0.3 TH/MM3 (0-0.2); BASOPHIL % 2.2 % (0.0-2.0); EOSINOPHIL # 0.1 TH/MM3 (0-0.4); EOSINOPHIL % 0.6 % (0.0-4.0); HEMATOCRIT 42.3 % (35.0-46.0); HEMO FLAGS DIFF FINAL; LYMPH % 7.7 % (9.0-44.0); MEAN CELL VOLUME 89.5 FL (80.0-100.0); MEAN CORPUSCULAR HEMOGLOBIN 29.3 PG (27.0-34.0); MEAN CORPUSCULAR HGB CONC 32.7 % (32.0-36.0); MONO % 6.4 % (0.0-8.0); NEUT % 83.1 % (16.0-70.0); PLATELET COUNT 284 TH/MM3 (150-450); RED BLOOD COUNT 4.73 MIL/MM3 (4.00-5.30); RED CELL DISTRIBUTION WIDTH 12.4 % (11.6-17.2)
[2017-07-04 06:23] LABS: POTASSIUM 4.3 MEQ/L (3.5-5.1)
[2017-07-04 06:26] LABS: BICARBONATE 21.6 MEQ/L (21.0-32.0)
[2017-07-04] MEDS: SODIUM CHLOR 0.9% 1000 ML INJ 1,000 ML IV SCH ×2 (06:41→17:05)
[2017-07-04] MEDS: DOCUSATE SODIUM 50 MG/SENNA 8.6 MG TAB PO SCH ×2 (08:08→19:40)
[2017-07-04] MEDS: SODIUM CHLORIDE 0.9% FLUSH 10 ML FLUSH IV FLUSH SCH ×2 (08:08→19:40)
[2017-07-04] MEDS ORDERED: LABETALOL HCL 100 MG/20 ML VIAL IV PUSH PRN (08:30)
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
[2017-07-04] MEDS: SUCRALFATE 1 GM TAB PO SCH ×4 (09:30→19:40)
[2017-07-04] MEDS: ISOSORBIDE MONONITRATE 30 MG TAB PO SCH (09:37)
[2017-07-04] MEDS: BRIMONIDINE TARTRATE 0.2% OPHT SOLN 5 ML BTL EACH EYE SCH ×2 (09:37→19:40)
[2017-07-04] MEDS: PANTOPRAZOLE SOD 40 MG DELAYED RELEASE TAB PO SCH (09:37)
[2017-07-04] MEDS: FLUoxetine HCL 20 MG CAP PO SCH (09:37)
[2017-07-04] MEDS ORDERED: SUCRALFATE 1 GM TAB PO ONE (11:45)
[2017-07-04] MEDS ORDERED: GLUCAGON 1 MG/ML VIAL OTHER PRN (11:45)
[2017-07-04] MEDS ORDERED: PHENAZOPYRIDINE HCL 100 MG TAB PO PRN (11:45)
[2017-07-04] MEDS ORDERED: LIDOCAINE VISCOUS 2% SOLN 15 ML UDC SWISH-SWAL PRN (11:45)
[2017-07-04] MEDS ORDERED: DEXTROSE 50% IN WATER 50 ML VIAL(D50) IV PUSH PRN (11:45)
[2017-07-04] MEDS: INSULIN NovoLIN REGULAR SUPPLEMENTAL SCALE SQ SCH ×3 (11:59→19:49)
[2017-07-04] MEDS ORDERED: SODIUM CHLOR 0.9% 1000 ML INJ 1,000 ML IV ONE (13:30)
--- NOTE | 2017-07-04 14:12 | EKG ---
Date Performed: 07/03/2017 Time Performed: 15:44:46 PTAGE: 81 years EKG: SINUS BRADYCARDIA POOR INITIAL ANTERIOR FORCES, CANNOT RULE OUT ANTEROSEPTAL OR OF UNDETERM INED AGE, BUT THIS MAY BE NORMAL VARIANT Since previous tracing, no significant change noted ABNORMAL ECG PREVIOUS TRACING : 06/17/2017 16.15 DOCTOR: Giancarlo Jansen Interpretating Date/Time 07/04/2017 14:11:06
--- NOTE | 2017-07-04 14:14 | EKG ---
Date Performed: 07/03/2017 Time Performed: 21:49:17 PTAGE: 81 years EKG: LEFT AXIS DEVIATION POOR INITIAL ANTERIOR FORCES V1-V3, CANNOT EXCLUDE ANTEROSEPTAL VT OF U NDETERMINED AGE, BUT THIS MAY BE NORMAL VARIANT Compared to previous tracing, axis somewhat more left tang, otherwise no significant change. ABNORMAL ECG PREVIOUS TRACING 07/03/2017 15.44.46 DOCTOR: Giancarlo Jansen Interpretating Date/Time 07/04/2017 14:13:26
[2017-07-04] MEDS ORDERED: TEMAZEPAM 15 MG CAP PO PRN (20:00)
[2017-07-04] MEDS ORDERED: LATANOPROST 0.005% OPHT SOLN 2.5 ML BTL EACH EYE SCH (21:00)
[2017-07-05] VITALS (29 sets, daily range): BP systolic 106–215; BP diastolic 50–111; PULSE 66–102; RESP 16–39; TEMP 97.8–98.4; O2SAT 95–96
[2017-07-05] MEDS: SODIUM CHLOR 0.9% 1000 ML INJ 1,000 ML IV SCH (02:15)
[2017-07-05] MEDS: INSULIN NovoLIN REGULAR SUPPLEMENTAL SCALE SQ SCH ×2 (08:00→12:00)
[2017-07-05] MEDS: PANTOPRAZOLE SOD 40 MG DELAYED RELEASE TAB PO SCH (08:41)
[2017-07-05] MEDS: DOCUSATE SODIUM 50 MG/SENNA 8.6 MG TAB PO SCH (08:41)
[2017-07-05] MEDS: FLUoxetine HCL 20 MG CAP PO SCH (08:41)
[2017-07-05] MEDS: ISOSORBIDE MONONITRATE 30 MG TAB PO SCH (08:41)
[2017-07-05] MEDS: BRIMONIDINE TARTRATE 0.2% OPHT SOLN 5 ML BTL EACH EYE SCH (08:42)
[2017-07-05] MEDS: SUCRALFATE 1 GM TAB PO SCH ×2 (08:42→12:09)
[2017-07-05] MEDS: SODIUM CHLORIDE 0.9% FLUSH 10 ML FLUSH IV FLUSH SCH (09:00)
[2017-07-05] MEDS ORDERED: SUCR1TAB PO (10:53)
[2017-07-05] MEDS ORDERED: PROT40TA PO (10:53)
[2017-07-05] MEDS ORDERED: PHEN-536 PO (10:53)
--- NOTE | 2017-07-05 10:53 | HHI.DCPOC ---
Discharge Care Plan Diagnosis: (1) Thickened endometrium (2) Gastritis and duodenitis (3) Left thyroid nodule Additional Problems Avoid any and all nonsteroidal anti-inflammatory drugs including but not limited to aspirin, Aleve, ibuprofen, naproxen, Motrin, Advil, Goody powders, BC powders. May use Tylenol for pain. Goals to Promote Your Health * To prevent worsening of your condition and complications * To maintain your health at the optimal level Directions to Meet Your Goals Take your medications as prescribed Follow your dietary instruction Follow activity as directed Keep your appointments as scheduled Take your immunizations and boosters as scheduled If your symptoms worsen call your PCP, if no PCP go to Urgent Care Center or Emergency Room Smoking is Dangerous to Your Health. Avoid second hand smoke Call the 24-hour hour crisis hotline for domestic abuse at Tej Tineo MD Jul 05, 2017 10:53
[2017-07-05] MEDS ORDERED: LABETALOL HCL 100 MG/20 ML VIAL IV PUSH ONE (11:45)
[2017-07-05] MEDS ORDERED: LOSARTAN 25 MG TAB PO SCH (12:00)
[2017-07-05] MEDS: HEPARIN SODIUM - SQ 10,000 UNITS/ML VIAL SQ SCH (12:12)
[2017-07-05] MEDS ORDERED: cloNIDine HCL 0.1 MG TAB PO ONE (13:15)
[2017-07-05] MEDS ORDERED: hydrALAZINE HCL 25 MG TAB PO ONE (13:15)
--- NOTE | 2017-07-05 14:26 | HHI.PR ---
Subjective Remarks Nursing denies any deterioration since last night. Patient says she has not felt any pain. No nausea. Tolerated her meals well since yesterday afternoon. Objective Vital Signs Date Time Temp Pulse Resp B/P (MAP) Pulse Ox O2 Delivery O2 Flow Rate FiO2 07/05/17 13:02 102 39 200/102 (134) 07/05/17 13:00 102 32 07/05/17 12:47 90 26 198/92 (127) 07/05/17 12:32 90 22 191/96 (127) 07/05/17 12:17 88 38 176/81 (112) 07/05/17 12:14 82 24 189/92 (124) 07/05/17 12:02 80 25 185/86 (119) 07/05/17 12:00 78 25 07/05/17 11:17 84 22 179/77 (111) 07/05/17 11:02 82 23 168/83 (111) 07/05/17 10:47 82 22 177/72 (107) 07/05/17 10:41 82 33 204/102 (136) 07/05/17 10:40 82 29 198/82 (120) 07/05/17 10:38 202/111 (141) 07/05/17 10:34 84 29 196/69 (111) 07/05/17 10:21 82 20 186/82 (116) 07/05/17 09:55 84 23 215/102 (139) 07/05/17 08:21 80 34 165/92 (116) 07/05/17 08:00 74 07/05/17 07:21 66 16 145/61 (89) 07/05/17 07:00 66 16 07/05/17 04:20 98.4 72 16 161/68 (99) 95 07/05/17 04:00 68 07/05/17 00:20 97.8 66 18 124/57 (79) 96 07/05/17 00:00 68 07/04/17 20:20 98.3 82 25 152/72 (98) 95 07/04/17 20:00 78 07/04/17 17:00 144/67 (92) 07/04/17 16:00 90/43 (59) 07/04/17 15:00 62 I/O 12/9/17 1207/04/17 07/05/17 07/05/17 07/05/17 06:59 14:59 22:59 06:59 14:59 22:59 Intake Total 620 ml 1000 ml 2265 ml 1200 ml 700 ml Output Total 250 ml 350 ml 1000 ml Balance 370 ml 1000 ml 1915 ml 200 ml 700 ml Intake Oral 120 ml 240 ml IV Total 500 ml 1000 ml 2025 ml 1200 ml 700 ml Output Urine Total 250 ml 350 ml 1000 ml # Voids 5 4 # Bowel Movements 0 0 Result Diagram: 07/04/1760407/04/17604 Objective Remarks Abdomen is soft, nontender, nondistended A/P Assessment and Plan Abd pain - Improved, dyspeptic in nature, likely has gastritis or mild ulcer since she had significant improvement with Carafate alone. Patient will be discharged and understands that she needs to follow through with her lab order as an outpatient for H. pylori stool antigen and follow this up with her primary care provider. She is informed that she could possibly have infection and this would warrant antibiotic treatment but that she did not have to stay in hospital for this as long as her symptoms were well-controlled which they have been for the last 20 hours or so. 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 Hypertensive emergency - Resolved, patient will be started on losartan upon discharge Anxiety - Home fluoxetine Leg wound - Topical wound care - patient was elected to follow through with her primary care provider on completing wound care as an outpatient. DM uncontrolled - SS w/ accuchecks Left-sided thyroid nodule - Patient was instructed to follow-up with her primary care provider on having her nodule reexamined and further blood work being done for her thyroid. Patient has met maximum benefit from hospitalization and is clinically stable for discharge. Tej Tineo MD Jul 05, 2017 14:26
[2017-07-08] MEDS ORDERED: ERGOCALCIFEROL (VIT D2) 50,000 UNIT CAP PO SCH (09:00)
== END 2017-07-05 15:30 | disposition home or self-care (01) ==
LOC: PHED 15:34 → PHEDA 22:22 → PHICU 07-04 01:46
PROVIDERS: ADMIT Hospitalist; ATTEND Hospitalist
DX: R10.2 Pelvic and perineal pain (principal); D25.9 Leiomyoma of uterus, unspecified; I16.1 Hypertensive emergency; R51 Headache; R11.2 Nausea with vomiting, unspecified; I25.10 Atherosclerotic heart disease of native coronary artery without angina pectoris; E11.65 Type 2 diabetes mellitus with hyperglycemia; E04.1 Nontoxic single thyroid nodule; I10 Essential (primary) hypertension; R50.9 Fever, unspecified; R30.0 Dysuria; K29.70 Gastritis, unspecified, without bleeding; K29.80 Duodenitis without bleeding; R93.8 Abnormal findings on diagnostic imaging of other specified body structures; R00.1 Bradycardia, unspecified; R07.9 Chest pain, unspecified; F41.9 Anxiety disorder, unspecified; B37.9 Candidiasis, unspecified; F32.9 Major depressive disorder, single episode, unspecified; E78.00 Pure hypercholesterolemia, unspecified; Z86.73 Personal history of transient ischemic attack (TIA), and cerebral infarction without residual deficits; K21.9 Gastro-esophageal reflux disease without esophagitis; Z79.899 Other long term (current) drug therapy; Z95.5 Presence of coronary angioplasty implant and graft; Z87.11 Personal history of peptic ulcer disease; Z98.84 Bariatric surgery status
CPT/HCPCS: 70450; 71010; 71275; 72197; 74174; 80048; 80053; 81001; 82550; 82948; 83690; 84484; 85025; 85610; 85730; 93005; 96361; 96365; 96372; 96375; 96376; 99285; A9577; G0378; J0360; J1170; J1644; J2270; J2405; J2765; J7030; Q9967

== ENCOUNTER 2018-06-01 09:27 | Observation (INO) ==
--- NOTE | 2018-06-01 10:15 | ED ---
HPI General Chief Complaint: Syncope Stated Complaint: HEADACHE AND SYNCOPE Time Seen by Provider: 06/01/18 09:54 History of Present Illness HPI narrative: Patient has a history of depression, anxiety, hypertension, stomach ulcer, diabetes, cataracts. She presents to the emergency department complaining of a syncopal episode today while she was at home. States she had a similar episode 2 days ago. While she was thinking about doing the laundry she states that she passed out on the hamper. Positive LOC which lasted few minutes in duration. States that she does not know if she hit her head. Also reports having visual hallucinations last night which is happened before. States that she saw a woman in bed next to her and she looked down at her arm and saw a red bracelet which was not there. She reports feeling dizzy, having some tinnitus, nausea but no vomiting, and she reports normal p.o. intake. She denies abdominal pain, chest pain, diarrhea, bloody stool, but reports dysuria, urinary frequency, and shortness of breath at rest on exertion, headache, and numbness and tingling "in my head, arms, hands." Last tetanus shot was 2 years ago and she takes baby aspirin every day, but she did not take it today. Related Data Home Medications Medication Instructions Recorded Confirmed alprazolam 0.25 mg PO TID PRN 06/01/18 06/01/18 cholecalciferol (vitamin D3) 50,000 unit PO QWEEK 06/01/18 06/01/18 fluoxetine 40 mg PO DAILY 06/01/18 06/01/18 furosemide 20 mg PO DAILY 06/01/18 06/01/18 isosorbide mononitrate 30 mg PO DAILY 06/01/18 06/01/18 latanoprost 1 drp OPHTHALMIC (EYE) QPM 06/01/18 06/01/18 lisinopril 10 mg PO DAILY 06/01/18 06/01/18 pantoprazole [Protonix] 40 mg PO DAILY 06/01/18 06/01/18 Allergies Allergy/AdvReac Type Severity Reaction Status Date / Time codeine Allergy Severe "MAKES HER Verified 06/01/18 09:37 MEAN" erythromycin base Allergy Severe Itching Verified 06/01/18 09:37 morphine Allergy Severe ITCHING Verified 06/01/18 09:37 Review of Systems ROS: all other systems reviewed are negative PMFSH Medical History Medical History Anxiety (Acute) Bilateral cataracts (Acute) Depression (Acute) Diabetes 1.5, managed as type 2 (Acute) HTN (hypertension) (Acute) Stomach ulcer (Acute) Surgical History Surgical History Gastric bypass status for obesity (Acute) History of cholecystectomy (Acute) History of hernia repair (Acute) History of lumbar surgery (Acute) H/O heart artery stent (Acute) Social History Social History Substance History: No History of Abuse Smoking Status: Never smoker How Often Do You Have a Drink Containing Alcohol: 4 or more times a week Recent Travel in [facility] within the Last 8 Weeks: No Recent Out of Country Travel within the Last 8 Weeks: No Immunization History Tetanus Immunization: <5 Years Exam Narrative Exam Narrative: GENERAL: No acute distress. SKIN: Right elbow abrasion and left leg abrasion. HEAD: Atraumatic. Normocephalic. EYES: Pupils equal and round. No scleral icterus. No injection or drainage. Extraocular muscles intact bilaterally. ENT: No nasal bleeding or discharge. Mucous membranes pink and moist. NECK: Trachea midline. No JVD. Supple, full range of motion. No focal C-spine tenderness. CARDIOVASCULAR: Regular rate and rhythm. No murmur appreciated. RESPIRATORY: No accessory muscle use. Clear to auscultation. Breath sounds equal bilaterally. GASTROINTESTINAL: Abdomen soft, non-tender, nondistended. Hepatic and splenic margins not palpable. MUSCULOSKELETAL: No obvious deformities. No clubbing. No cyanosis. No edema. No focal T or L-spine tenderness to palpation. NEUROLOGICAL: Awake and alert. No obvious cranial nerve deficits. Motor grossly within normal limits. Normal speech. 5/5 strength bilateral upper and lower extremities. PSYCHIATRIC: Appropriate mood and affect; insight and judgment normal. Course Initial Documented Vital Signs Temperature 97.7 F 06/01/18 09:33 Pulse Rate 62 06/01/18 09:33 Respiratory Rate 16 06/01/18 09:33 Blood Pressure 158/65 H 06/01/18 09:33 Pulse Oximetry 100 06/01/18 09:33 Last Documented Vital Signs Temperature 97.7 F 06/01/18 09:33 Pulse Rate 62 06/01/18 09:33 Respiratory Rate 16 06/01/18 09:33 Blood Pressure 158/65 H 06/01/18 09:33 Pulse Oximetry 99 06/01/18 09:50 Medical Decision Making MDM Narrative Medical decision making narrative: Patient presents to the emergency department status post syncopal episode. Patient placed on a court monitor, continuous pulse ox, and IV access obtained. Head CT, chest x-ray, EKG, orthostatic blood pressures, and labs ordered. 1112: Patient's head CT shows right maxillary sinus mucosal thickening, labs showed increasing BUN and creatinine and glucose and elevated d-dimer. VQ scan has been ordered. Orthostats are negative. 1153: Urinalysis consistent with a UTI 1 g IV Rocephin and 500cc IV NS ordered. Hospitalist paged for admission. 1214: Admitted to obs to hospitalist. At his request VQ scan d/c'd. Medical Screen Exam Complete: Yes Emergency Medical Condition: Yes Differential Diagnosis Differential Diagnosis: orthostasis, dehydration, anemia, urinary tract infection, PE, CVA, TIA, ICH, ACS Lab Data Result diagrams: 06/01/18 09:50 06/01/18 09:50 Lab Results 06/01/18 06/01/18 06/01/18 Range/Units 09:50 09:50 09:50 CBC w Diff Auto diff final WBC 9.6 (4.0-11.0) th/mm3 RBC 4.39 (4.00-5.30) mil/mm3 Hgb 13.2 (11.6-15.3) gm/dL Hct 40.3 (35.0-46.0) % MCV 91.9 (80.0-100.0) fL MCH 30.0 (27.0-34.0) pg MCHC 32.6 (32.0-36.0) % RDW 13.9 (11.6-17.2) % Plt Count 231 (150-450) th/mm3 MPV 8.7 (7.0-11.0) fL Neut % (Auto) 76.1 H (16.0-70.0) % Lymph % (Auto) 9.3 (9.0-44.0) % [place] % (Auto) 8.4 H (0.0-8.0) % Eos % (Auto) 5.7 H (0.0-4.0) % Baso % (Auto) 0.5 (0.0-2.0) % Neut # (Auto) 7.4 (1.8-7.7) th/mm3 Lymph # (Auto) 0.9 L (1.0-4.8) th/mm3 [place] # (Auto) 0.8 (0.0-0.9) th/mm3 Eos # (Auto) 0.5 H (0.0-0.4) th/mm3 Baso # (Auto) 0.0 (0.0-0.2) th/mm3 WBC Differential . Differential Comment . PT 9.9 (9.8-11.6) sec INR 1.0 Ratio APTT 25.9 (23.4-31.7) sec D-Dimer Quant (PE/DVT) 1.22 H (0.00-0.50) mg/L FEU Sodium 140 (136-145) meq/L Potassium 3.9 (3.5-5.1) meq/L Chloride 107 (98-107) meq/L Carbon Dioxide 21.9 (21.0-32.0) meq/L Anion Gap 11 (5-15) meq/L BUN 32 H (7-18) mg/dL Creatinine 2.20 H (0.50-1.00) mg/dL Estimated GFR 21 L (>89) mL/min Random Glucose 172 H (74-106) mg/dL Calcium 8.4 L (8.5-10.1) mg/dL Magnesium 2.2 (1.5-2.5) mg/dL Total Bilirubin 0.7 (0.2-1.0) mg/dL AST 14 L (15-37) U/L ALT 16 (10-53) U/L Alkaline Phosphatase 56 (45-117) U/L Troponin I Less than 0.02 L (0.02-0.05) ng/mL B-Natriuretic Peptide (0-100) pg/mL Total Protein 6.7 (6.4-8.2) g/dL Albumin 3.2 L (3.4-5.0) g/dL Ur Collection Type Urine Color (Yellw/Straw) Urine Clarity (Clear) Urine pH (5.0-8.5) Ur Specific [place] (1.002-1.035) Urine Protein (Neg-Trace) mg/dL Urine Glucose (UA) (Negative) mg/dL Urine Ketones (Negative) mg/dL Urine Occult Blood (Negative) Urine Nitrate (Negative) Urine Bilirubin (Negative) Urine Urobilinogen (Less than 2) mg/dL Ur Leukocyte Esterase (Negative) Urine RBC (0-3) /hpf Urine WBC (0-5) /hpf Ur Squamous Epith Cells (0-5) /hpf Urine Bacteria (None) /hpf Micro UA Comment Ur Microscopic Review Urine Culture Comments 06/01/18 06/01/18 Range/Units 09:50 11:25 CBC w Diff WBC (4.0-11.0) th/mm3 RBC (4.00-5.30) mil/mm3 Hgb (11.6-15.3) gm/dL Hct (35.0-46.0) % MCV (80.0-100.0) fL MCH (27.0-34.0) pg MCHC (32.0-36.0) % RDW (11.6-17.2) % Plt Count (150-450) th/mm3 MPV (7.0-11.0) fL Neut % (Auto) (16.0-70.0) % Lymph % (Auto) (9.0-44.0) % [place] % (Auto) (0.0-8.0) % Eos % (Auto) (0.0-4.0) % Baso % (Auto) (0.0-2.0) % Neut # (Auto) (1.8-7.7) th/mm3 Lymph # (Auto) (1.0-4.8) th/mm3 [place] # (Auto) (0.0-0.9) th/mm3 Eos # (Auto) (0.0-0.4) th/mm3 Baso # (Auto) (0.0-0.2) th/mm3 WBC Differential Differential Comment PT (9.8-11.6) sec INR Ratio APTT (23.4-31.7) sec D-Dimer Quant (PE/DVT) (0.00-0.50) mg/L FEU Sodium (136-145) meq/L Potassium (3.5-5.1) meq/L Chloride (98-107) meq/L Carbon Dioxide (21.0-32.0) meq/L Anion Gap (5-15) meq/L BUN (7-18) mg/dL Creatinine (0.50-1.00) mg/dL Estimated GFR (>89) mL/min Random Glucose (74-106) mg/dL Calcium (8.5-10.1) mg/dL Magnesium (1.5-2.5) mg/dL Total Bilirubin (0.2-1.0) mg/dL AST (15-37) U/L ALT (10-53) U/L Alkaline Phosphatase (45-117) U/L Troponin I (0.02-0.05) ng/mL B-Natriuretic Peptide 66 (0-100) pg/mL Total Protein (6.4-8.2) g/dL Albumin (3.4-5.0) g/dL Ur Collection Type Clean catch Urine Color Yellow (Yellw/Straw) Urine Clarity Slightly cloudy (Clear) Urine pH 6.0 (5.0-8.5) Ur Specific [place] 1.020 (1.002-1.035) Urine Protein Trace (Neg-Trace) mg/dL Urine Glucose (UA) Negative (Negative) mg/dL Urine Ketones Negative (Negative) mg/dL Urine Occult Blood Negative (Negative) Urine Nitrate Negative (Negative) Urine Bilirubin Negative (Negative) Urine Urobilinogen 0.2 (Less than 2) mg/dL Ur Leukocyte Esterase Small H (Negative) Urine RBC 0-3 (0-3) /hpf Urine WBC 0-5 (0-5) /hpf Ur Squamous Epith Cells 0-5 (0-5) /hpf Urine Bacteria Many H (None) /hpf Micro UA Comment Culture indicated Ur Microscopic Review Microscopic reviewed Urine Culture Comments Culture indicated Imaging Data Radiologist's impression: Head CT 06/01/18 10:05 CONCLUSION: 1. Negative noncontrast head CT. 2. Extensive mucosal thickening in the right maxillary sinus. . Chest X-Ray 06/01/18 10:06 CONCLUSION: No acute cardiopulmonary disease. ECG Data Attestation: I personally reviewed and interpreted this ECG as follows: (Sinus rhythm, rate 60, left axis deviation, normal intervals, QTC 414, T wave inversion in leads aVL and V1) Discharge Plan Discharge Disposition Patient Disposition: 30 Still Patient Discharge Condition Condition: Stable Discharge Details Diagnosis: Syncope, Acute UTI, Acute alteration in mental status Physicians Team ED Provider: Natalie Benavidez Primary Care Provider: Faviola Hunt Rxs /Orders / Referrals /Forms Prescriptions: No Action fluoxetine 40 mg Capsule 40 mg PO DAILY RF: 0 latanoprost 0.005 % Drops 1 drp OPHTHALMIC (EYE) QPM RF: 0 isosorbide mononitrate 30 mg Tablet Extended Release 24 Hr 30 mg PO DAILY RF: 0 alprazolam 0.25 mg Tablet 0.25 mg PO TID PRN (Reason: Anxiety) RF: 0 pantoprazole [Protonix] 40 mg Tablet,Delayed Release (Dr/Ec) 40 mg PO DAILY RF: 0 lisinopril 10 mg Tablet 10 mg PO DAILY RF: 0 furosemide 20 mg Tablet 20 mg PO DAILY RF: 0 cholecalciferol (vitamin D3) 50,000 unit Tablet 50,000 unit PO QWEEK RF: 0 Status ED Status: With Doctor
--- NOTE | 2018-06-01 10:22 | XR ---
EXAM DATE: 06/01/2018 10:18 AM EST AGE/SEX: 82 years / Female INDICATIONS: Syncope, short of breath. CLINICAL DATA: This is the patient's initial encounter. Patient reports that signs and symptoms have been present for 1 day and indicates a pain score of 0/10. MEDICAL/SURGICAL HISTORY: Diabetes mellitus type II. Hypertension. CAD Coronary artery stent. COMPARISON: [facility], CHEST SINGLE AP, 07/03/2017. . FINDINGS: The lungs are clear without infiltrate, nodule, or mass. There is no appreciable pleural effusion for technique. Heart and mediastinum are unremarkable. There is thoracic scoliosis convexi ty towards the right. CONCLUSION: No acute cardiopulmonary disease. Electronically signed by: Gerald Hyde MD 06/01/2018 10:21 AM EST
[2018-06-01 10:25] LABS: Baso % (Auto) 0.5 % (0.0-2.0); Eos # (Auto) 0.5 th/mm3 (0.0-0.4); Eos % (Auto) 5.7 % (0.0-4.0); Hematocrit 40.3 % (35.0-46.0); Hemoglobin 13.2 gm/dL (11.6-15.3); Lymph # (Auto) 0.9 th/mm3 (1.0-4.8); Lymph % (Auto) 9.3 % (9.0-44.0); Mean Corpuscular HGB Conc 32.6 % (32.0-36.0); Mean Corpuscular Volume 91.9 fL (80.0-100.0); Mean Platelet Volume 8.7 fL (7.0-11.0); Mono # (Auto) 0.8 th/mm3 (0.0-0.9); Mono % (Auto) 8.4 % (0.0-8.0); Neut # (Auto) 7.4 th/mm3 (1.8-7.7); Neut % (Auto) 76.1 % (16.0-70.0); Platelet Count 231 th/mm3 (150-450); Red Blood Count 4.39 mil/mm3 (4.00-5.30); Red Cell Distribution Width 13.9 % (11.6-17.2); White Blood Count 9.6 th/mm3 (4.0-11.0)
[2018-06-01 10:39] LABS: Chloride 107 meq/L (98-107); Potassium 3.9 meq/L (3.5-5.1); Sodium 140 meq/L (136-145)
[2018-06-01 10:42] LABS: Calcium 8.4 mg/dL (8.5-10.1)
[2018-06-01 10:43] LABS: Albumin 3.2 g/dL (3.4-5.0); Anion Gap 11 meq/L (5-15); Blood Urea Nitrogen 32 mg/dL (7-18); Carbon Dioxide 21.9 meq/L (21.0-32.0); Glucose,Random 172 mg/dL (74-106); Magnesium 2.2 mg/dL (1.5-2.5)
[2018-06-01 10:45] LABS: Activated Partial Thrombo Time 25.9 sec (23.4-31.7); Prothrombin Time 9.9 sec (9.8-11.6)
[2018-06-01 10:46] LABS: Alanine Aminotransferase 16 U/L (10-53); Aspartate Aminotransferase 14 U/L (15-37); Glomerular Filtration Rate 21 mL/min (>89)
[2018-06-01 10:47] LABS: Total Protein 6.7 g/dL (6.4-8.2)
[2018-06-01 10:48] LABS: D-Dimer 1.22 mg/L FEU (0.00-0.50)
--- NOTE | 2018-06-01 10:48 | CT ---
EXAM DATE: 06/01/2018 10:42 AM EST AGE/SEX: 82 years / Female INDICATIONS: Became dizzy then passed out. Right frontal tenderness. CLINICAL DATA: This is the patient's initial encounter. Patient reports that signs and symptoms have been present for 1 day and indicates a pain score of 6/10. MEDICAL/SURGICAL HISTORY: Diabetes. Hypertension. Cardiovascular disease. Coronary artery stent. Cholecystectomy. Gastric bypass. Hernia repair. Lumbar surgery. RADIATION DOSE: 50.98 CTDI (mGy) COMPARISON: [facility], CT BRAIN W/O CONTRAST, 07/03/2017. . TECHNIQUE: CT of the head without contrast. Using automated exposure control and adjustment of the mA and/or kV according to patient size, radiation dose was kept as low as reasonably achievable to ob tain optimal diagnostic quality images. DICOM format image data is available electronically for revi ew and comparison. FINDINGS: Cerebrum: The ventricles are normal for age. No evidence of midline shift, mass lesion, hemorrhage or acute infarction. No extraaxial fluid collections are seen. Posterior Fossa: The cerebellum and brainstem are intact. The 4th ventricle is midline. The cerebe llopontine angle is unremarkable. Extracranial: The visualized portion of the orbits is intact. There is mucosal thickening in the rig ht maxillary sinus. Skull: The calvaria is intact. No evidence of skull fracture. CONCLUSION: 1. Negative noncontrast head CT. 2. Extensive mucosal thickening in the right maxillary sinus. . Electronically signed by: Silvestre Aaron MD 06/01/2018 10:47 AM EST
[2018-06-01 10:49] LABS: Alkaline Phosphatase 56 U/L (45-117)
[2018-06-01 11:33] LABS: Bilirubin,Urine Negative (Negative); Clarity,Urine Slightly Cloudy (Clear); Color,Urine Yellow (Yellw/Straw); Glucose,Urine (UA) Negative (Negative); Leukocyte Esterase,Urine Small (Negative); Nitrite,Urine Negative (Negative); Urobilinogen,Urine 0.2 mg/dL (Less than 2)
[2018-06-01 11:38] LABS: RBC,Urine 0-3 /hpf (0-3); Squamous Epithelial Cell,Urine 0-5 /hpf (0-5); WBC,Urine 0-5 /hpf (0-5)
[2018-06-01 11:39] LABS: Bacteria,Urine Many /hpf
--- NOTE | 2018-06-01 11:41 | ECG ---
Date Performed: 06/01/2018 Time Performed: 09:46:22 PTAGE: 82 years EKG: Baseline artifact present Sinus rhythm BORDERLINE LEFT AXIS DEVIATION BORDERLINE ECG Compared to prior electrocardiogram, Poor R wave progr ession is no longer present. PREVIOUS TRACING : 07/03/2017 21.49 DOCTOR: Hunter Lambert Interpretating Date/Time 06/01/2018 11:40:46
[2018-06-01] MEDS ORDERED: Sodium Chlor 0.9% Inj 500 ML IV.SIG SCH (12:00)
[2018-06-01] MEDS ORDERED: Acetaminophen 325 MG Tablet PO PRN (12:15)
[2018-06-01] MEDS ORDERED: Bisacodyl 10 MG Supp RECTAL PRN (12:15)
[2018-06-01] MEDS: Sod Chloride 0.9% Inj 1,000 ML IV.CONT SCH ×2 (12:38→22:53)
--- NOTE | 2018-06-01 14:04 | P.HP ---
History of Present Illness Primary Care Physician: Faviola Hunt DO Chief Complaint: syncnope, dizziness History of Present Illness: 82-year-old female with history of HTN, DM, CAD s/p stent x1, CVA without residual deficit, anxiety, presents with a syncopal episode today. Patient reports she was in her normal state of health this morning, went into the laundry room to do some laundry, when she all of a sudden felt very sick to her stomach with her head "buzzing", states she felt like a train was coming down on her head, then she suddenly passed out. She denies any fall because she held herself onto the close hamper. She states she was out for at least a few seconds. Afterwards she has been having intractable dizziness, feels like her head is spinning. She was able to call her friend who was initially going to take her to her neurologist Dr. Bello's office, however decided to come to the ER instead. She denies any chest pain, palpitations, shortness of breath. She states she had similar episodes 2 days ago and 1 week ago, but she never completely lost consciousness during those episodes. The patient does endorse some recent dysuria and was diagnosed with UTI in the ED. Patient also reports intermittent loose stools with occasional bowel incontinence, but denies any recent worsening. She states she has been tolerating oral intake. She states at baseline she is able to get around without difficulty, denies using a cane/ walker. She lives at home with her son, however he works during the day. The patient has no other medical complaints at this time. Review of Systems All other systems reviewed negative except as stated in HPI [facility] - History History Provided By: Patient - Medical History Medical History: Medical History (Last Updated 06/01/18 @ 14:14 by Maribel Conley) Anxiety Bilateral cataracts CAD (coronary artery disease) CVA (cerebral vascular accident) Depression Diabetes 1.5, managed as type 2 HTN (hypertension) Stomach ulcer - Surgical History Surgical History: Surgical History (Last Updated 06/01/18 @ 14:14 by Maribel Conley) Gastric bypass status for obesity History of back surgery History of cholecystectomy History of hernia repair History of lumbar surgery H/O heart artery stent - Family History Family History: Family History (Last Updated 06/01/18 @ 14:29 by Maribel Conley) Mother Heart disease CHF (congestive heart failure) Father Lung disease - Social History I have reviewed the patient's Social History: Yes - Tobacco History Smoking Status: Never smoker - Alcohol History How Often Do You Have a Drink Containing Alcohol: 4 or more times a week - Substance Use History Substance History: No History of Abuse - Travel History Recent Travel in the [place] Within the Last 8 Weeks: No Recent Travel Out of the Country Within the Last 8 Weeks: No - Immunization History Tetanus Immunization: <5 Years Medications and Allergies Active Medications: Active Medications Acetaminophen (Tylenol) 650 mg PO Q4H PRN PRN Reason: Headache, fever, pain 1-4 Al Hydroxide/Mg Hydroxide (Milk Of Magnesia Liq) 30 ml PO Q12H PRN PRN Reason: Mild Constipation Bisacodyl (Dulcolax Supp) 10 mg RECTAL DAILY PRN PRN Reason: SEVERE CONSITIPATION Sodium Chloride (Ns Inj) 1,000 mls @ 100 mls/hr IV.CONT .Q10H BRYAN Stop: 06/02/18 12:14 Last Admin: 06/01/18 12:38 Dose: 100 mls/hr Lactulose (Lactulose Liq) 30 ml PO DAILY PRN PRN Reason: SEVERE CONSITIPATION Ondansetron HCl (Zofran Inj) 4 mg IV.PUSH Q6H PRN PRN Reason: NAUSEA OR VOMITING Sennosides (Senokot) 17.2 mg PO Q12H PRN PRN Reason: Moderate Constipation Allergies Allergy/AdvReac Type Severity Reaction Status Date / Time codeine Allergy Severe "MAKES HER Verified 06/01/18 09:37 MEAN" erythromycin base Allergy Severe Itching Verified 06/01/18 09:37 morphine Allergy Severe ITCHING Verified 06/01/18 09:37 Home Medications Medication Instructions Recorded Confirmed Type alprazolam 0.25 mg PO TID PRN 06/01/18 06/01/18 History cholecalciferol (vitamin D3) 50,000 unit PO QWEEK 06/01/18 06/01/18 History fluoxetine 40 mg PO DAILY 06/01/18 06/01/18 History furosemide 20 mg PO DAILY 06/01/18 06/01/18 History isosorbide mononitrate 30 mg PO DAILY 06/01/18 06/01/18 History latanoprost 1 drp OPHTHALMIC (EYE) QPM 06/01/18 06/01/18 History lisinopril 10 mg PO DAILY 06/01/18 06/01/18 History pantoprazole [Protonix] 40 mg PO DAILY 06/01/18 06/01/18 History Exam Vital signs: Vital Signs 06/01/18 09:33 06/01/18 09:50 Temperature 97.7 F Pulse Rate 62 Respiratory Rate 16 Blood Pressure 158/65 H Pulse Oximetry 100 99 Intake & Output 05/31/18 06/01/18 06/01/18 18:59 06:59 18:59 Intake Total 600 / 600 Balance 600 / 600 Weight 47.6 kg Intake: IV 600 / 600 NS Inj 500 ML @ 1000 mls/hr IV. 500 / 500 SIG BOLUS BRYAN Rx#:[id number] Rocephin Inj 1,000 MG In NS Inj 100 / 100 100 ML @ 200 mls/hr IV.SIG ONCE ONE Rx#:[id number] Narrative: GENERAL: Well-nourished, well-developed pleasant elderly female patient in [facility]. SKIN: Warm and dry. No rash. Scattered areas of ecchymosis on extremities. HEENT: Normocephalic. Atraumatic. Pupils equal and round. Mucous membranes pink and moist. NECK: Supple. Trachea midline. CARDIOVASCULAR: Regular rate and rhythm. No murmur appreciated. RESPIRATORY: No accessory muscle use. Clear to auscultation. Breath sounds equal bilaterally. GASTROINTESTINAL: Abdomen soft, non-tender, nondistended. Normoactive bowel sounds x4. MUSCULOSKELETAL: No obvious deformities. Extremities without clubbing, cyanosis , or edema. NEUROLOGICAL: Awake and alert. No obvious cranial nerve deficits. Motor grossly within normal limits. Moving all extremities spontaneously. Normal speech. PSYCHIATRIC: Appropriate mood and affect; insight and judgment normal. Results - Labs CBC & Chem 7: 06/01/18 09:50 06/01/18 09:50 Labs: Laboratory Results - last 24 hr 06/01/18 06/01/18 06/01/18 09:50 09:50 09:50 CBC w Diff Auto diff final WBC 9.6 RBC 4.39 Hgb 13.2 Hct 40.3 MCV 91.9 MCH 30.0 MCHC 32.6 RDW 13.9 Plt Count 231 MPV 8.7 Neut % (Auto) 76.1 H Lymph % (Auto) 9.3 [place] % (Auto) 8.4 H Eos % (Auto) 5.7 H Baso % (Auto) 0.5 Neut # (Auto) 7.4 Lymph # (Auto) 0.9 L [place] # (Auto) 0.8 Eos # (Auto) 0.5 H Baso # (Auto) 0.0 WBC Differential . Differential Comment . PT 9.9 INR 1.0 APTT 25.9 D-Dimer Quant (PE/DVT) 1.22 H Sodium 140 Potassium 3.9 Chloride 107 Carbon Dioxide 21.9 Anion Gap 11 BUN 32 H Creatinine 2.20 H Estimated GFR 21 L Random Glucose 172 H Calcium 8.4 L Magnesium 2.2 Total Bilirubin 0.7 AST 14 L ALT 16 Alkaline Phosphatase 56 Troponin I Less than 0.02 L B-Natriuretic Peptide Total Protein 6.7 Albumin 3.2 L Ur Collection Type Urine Color Urine Clarity Urine pH Ur Specific [place] Urine Protein Urine Glucose (UA) Urine Ketones Urine Occult Blood Urine Nitrate Urine Bilirubin Urine Urobilinogen Ur Leukocyte Esterase Urine RBC Urine WBC Ur Squamous Epith Cells Urine Bacteria Micro UA Comment Ur Microscopic Review Urine Culture Comments 06/01/18 06/01/18 09:50 11:25 CBC w Diff WBC RBC Hgb Hct MCV MCH MCHC RDW Plt Count MPV Neut % (Auto) Lymph % (Auto) [place] % (Auto) Eos % (Auto) Baso % (Auto) Neut # (Auto) Lymph # (Auto) [place] # (Auto) Eos # (Auto) Baso # (Auto) WBC Differential Differential Comment PT INR APTT D-Dimer Quant (PE/DVT) Sodium Potassium Chloride Carbon Dioxide Anion Gap BUN Creatinine Estimated GFR Random Glucose Calcium Magnesium Total Bilirubin AST ALT Alkaline Phosphatase Troponin I B-Natriuretic Peptide 66 Total Protein Albumin Ur Collection Type Clean catch Urine Color Yellow Urine Clarity Slightly cloudy Urine pH 6.0 Ur Specific [place] 1.020 Urine Protein Trace Urine Glucose (UA) Negative Urine Ketones Negative Urine Occult Blood Negative Urine Nitrate Negative Urine Bilirubin Negative Urine Urobilinogen 0.2 Ur Leukocyte Esterase Small H Urine RBC 0-3 Urine WBC 0-5 Ur Squamous Epith Cells 0-5 Urine Bacteria Many H Micro UA Comment Culture indicated Ur Microscopic Review Microscopic reviewed Urine Culture Comments Culture indicated - Imaging Impressions Head CT 06/01/18 10:05 CONCLUSION: 1. Negative noncontrast head CT. 2. Extensive mucosal thickening in the right maxillary sinus. . Chest X-Ray 06/01/18 10:06 CONCLUSION: No acute cardiopulmonary disease. Caprini VTE Risk Assessment Caprini VTE Risk Assessment: Moderate/High Risk (score >= 2) Caprini Risk Assessment Model: Point Value = 1 Point Value = 2 Point Value = 3 Point Value = 5 Age 41-60 Minor surgery BMI > 25 kg/m2 Swollen legs Varicose veins or History of unexplained or recurrent spontaneous Oral contraceptives or hormone replacement Sepsis (< 1 month) Serious lung disease, including pneumonia (< 1 month) Abnormal pulmonary function Acute myocardial infarction Congestive heart failure (< 1 month) History of inflammatory bowel disease Medical patient at bed rest Age 61-74 Arthroscopic surgery Major open surgery (> 45 min) Laparoscopic surgery (> 45 min) Malignancy Confined to bed (> 72 hours) Immobilizing plaster cast Central venous access Age >= 75 History of VTE Family history of VTE Factor V Leiden Prothrombin [id number] Lupus anticoagulant Anticardiolipin antibodies Elevated serum homocysteine Heparin-induced thrombocytopenia Other congenital or acquired thrombophilia Stroke (< 1 month) Elective arthroplasty Hip, pelvis, or leg fracture Acute spinal cord injury (< 1 month) Prophylaxis Regimen: Total Risk Factor Score Risk Level Prophylaxis Regimen 0-1 Low Early ambulation 2 Moderate Order ONE of the following: *Sequential Compression Device (SCD) *Heparin 5000 units SQ BID 3-4 Higher Order ONE of the following medications: *Heparin 5000 units SQ TID *Enoxaparin/Lovenox 40 mg SQ daily (WT < 150 kg, CrCl > 30 mL/min) *Enoxaparin/Lovenox 30 mg SQ daily (WT < 150 kg, CrCl > 10-29 mL/min) *Enoxaparin/Lovenox 30 mg SQ BID (WT < 150 kg, CrCl > 30 mL/min) AND/OR *Sequential Compression Device (SCD) 5 or more Highest Order ONE of the following medications: *Heparin 5000 units SQ TID (Preferred with Epidurals) *Enoxaparin/Lovenox 40 mg SQ daily (WT < 150 kg, CrCl > 30 mL/min) *Enoxaparin/Lovenox 30 mg SQ daily (WT < 150 kg, CrCl > 10-29 mL/min) *Enoxaparin/Lovenox 30 mg SQ BID (WT < 150 kg, CrCl > 30 mL/min) AND *Sequential Compression Device (SCD) Assessment and Plan - Plan 82-year-old female with history of HTN, DM, CAD s/p stent x1, CVA without residual deficit, anxiety, presents with a syncopal episode today. Syncope/Dizziness: unclear etiology, possibly vertigo vs infection vs dehydration vs TIA/CVA. -Head CT reviewed, no acute findings -Check orthostatics -Give IVF hydration -Consult PT -Meclizine prn -Neuro checks, monitor on telemetry -Consult patient's neurologist Dr. Bello GIACOMO: Cr 2.20, previously 1.5 on Jun 2017. Suspect secondary to dehydration. -hold patient's lasix and lisinopril -Continue IVF hydration -Avoid nephrotoxins -Monitor renal function UTI: patient symptomatic with dysuria -UA with small leuks, many bacteria -Continue with IV rocephin -Monitor urine culture, adjust antibiotics as needed CAD/HTN: Chronic. Patient follows with cardiology Dr. Serna. -holding patient's lasix and lisinopril secondary to GIACOMO -continue patient's imdur -monitor on telemetry -monitor BP, adjust antihypertensives Diabetes Mellitus: Chronic -no diabetic meds on home med list -monitor Accu-checks and cover with SSI DVT Prophylaxis: teds/SCDs
[2018-06-01] MEDS ORDERED: Dextrose 50% in Water 50 ML Vial IV.PUSH PRN (14:47)
--- NOTE | 2018-06-01 15:36 | P.CONNEU ---
History of Present Illness Service: Neurology Primary Care Provider: Faviola Hunt DO Chief Complaint: syncnope, dizziness History of Present Illness: 82 y/o f admitted for syncopal episode. states this is the 6th time this has occurred. follows in our office. typically happens when she stands, will feel a "train going through her head". No focal weakness. no vision loss, no cp/palpitations or dyspnea. seen here 05/2017 by neuro and felt to have symptoms c/w orthostatic hypotension. ct brain negative. bp mildly elevated. Review of Systems All other systems reviewed negative except as stated in HPI [facility] - History History Provided By: Patient - Medical History Medical History: Medical History (Last Updated 06/01/18 @ 14:14 by Maribel Conley) Anxiety Bilateral cataracts CAD (coronary artery disease) CVA (cerebral vascular accident) Depression Diabetes 1.5, managed as type 2 HTN (hypertension) Stomach ulcer - Surgical History Surgical History: Surgical History (Last Updated 06/01/18 @ 14:14 by Maribel Conley) Gastric bypass status for obesity History of back surgery History of cholecystectomy History of hernia repair History of lumbar surgery H/O heart artery stent - Family History Family History: Family History (Last Updated 06/01/18 @ 14:29 by Maribel Conley) Mother Heart disease CHF (congestive heart failure) Father Lung disease - Tobacco History Smoking Status: Never smoker - Alcohol History How Often Do You Have a Drink Containing Alcohol: 4 or more times a week - Substance Use History Substance History: No History of Abuse - Travel History Recent Travel in the [place] Within the Last 8 Weeks: No Recent Travel Out of the Country Within the Last 8 Weeks: No - Immunization History Tetanus Immunization: <5 Years Medications and Allergies Active Medications: Active Medications Acetaminophen (Tylenol) 650 mg PO Q4H PRN PRN Reason: Headache, fever, pain 1-4 Al Hydroxide/Mg Hydroxide (Milk Of Magnesia Liq) 30 ml PO Q12H PRN PRN Reason: Mild Constipation Bisacodyl (Dulcolax Supp) 10 mg RECTAL DAILY PRN PRN Reason: SEVERE CONSITIPATION Dextrose (D50w Vial) 50 ml IV.PUSH UNSCH PRN PRN Reason: PER HYPOGLYCEMIA PROTOCOL Fluoxetine HCl (Prozac) 40 mg PO DAILY BRYAN Glucagon (Glucagon Inj) 1 mg OTHER PRN PRN PRN Reason: for Hypoglycemia Protocol Sodium Chloride (Ns Inj) 1,000 mls @ 100 mls/hr IV.CONT .Q10H BRYAN Stop: 06/02/18 12:14 Last Admin: 06/01/18 12:38 Dose: 100 mls/hr Insulin Aspart (Novolog Insulin Correctional Sugar Inj) 0 unit SQ ACHS BRYAN; Protocol Isosorbide Mononitrate (Imdur) 30 mg PO DAILY BRYAN Lactulose (Lactulose Liq) 30 ml PO DAILY PRN PRN Reason: SEVERE CONSITIPATION Latanoprost (Xalatan 0.005% Opth Drops) 1 drop EACH EYE QPM BRAYN Meclizine HCl (Antivert) 25 mg PO Q8HR PRN PRN Reason: DIZZINESS Ondansetron HCl (Zofran Inj) 4 mg IV.PUSH Q6H PRN PRN Reason: NAUSEA OR VOMITING Pantoprazole Sodium (Protonix) 40 mg PO DAILY BRYAN Sennosides (Senokot) 17.2 mg PO Q12H PRN PRN Reason: Moderate Constipation Allergies Allergy/AdvReac Type Severity Reaction Status Date / Time codeine Allergy Severe "MAKES HER Verified 06/01/18 09:37 MEAN" erythromycin base Allergy Severe Itching Verified 06/01/18 09:37 morphine Allergy Severe ITCHING Verified 06/01/18 09:37 Home Medications Medication Instructions Recorded Confirmed Type alprazolam 0.25 mg PO TID PRN 06/01/18 06/01/18 History cholecalciferol (vitamin D3) 50,000 unit PO QWEEK 06/01/18 06/01/18 History fluoxetine 40 mg PO DAILY 06/01/18 06/01/18 History furosemide 20 mg PO DAILY 06/01/18 06/01/18 History isosorbide mononitrate 30 mg PO DAILY 06/01/18 06/01/18 History latanoprost 1 drp OPHTHALMIC (EYE) QPM 06/01/18 06/01/18 History lisinopril 10 mg PO DAILY 06/01/18 06/01/18 History pantoprazole [Protonix] 40 mg PO DAILY 06/01/18 06/01/18 History Exam Vital signs: Vital Signs 06/01/18 09:33 06/01/18 09:50 06/01/18 10:00 Temperature 97.7 F Pulse Rate 62 64 Respiratory Rate 16 16 Blood Pressure 158/65 H 148/75 H Pulse Oximetry 100 99 98 06/01/18 11:00 06/01/18 12:25 06/01/18 13:25 Temperature Pulse Rate 62 66 76 Respiratory Rate 16 16 16 Blood Pressure 147/80 H 122/54 L 156/80 H Pulse Oximetry 98 96 97 06/01/18 14:25 Temperature Pulse Rate 64 Respiratory Rate 16 Blood Pressure 139/64 Pulse Oximetry 97 Intake & Output 05/31/18 06/01/18 06/01/18 18:59 06:59 18:59 Intake Total 600 / 600 Balance 600 / 600 Weight 47.6 kg Intake: IV 600 / 600 NS Inj 500 ML @ 1000 mls/hr IV. 500 / 500 SIG BOLUS BRYAN Rx#:[id number] Rocephin Inj 1,000 MG In NS Inj 100 / 100 100 ML @ 200 mls/hr IV.SIG ONCE ONE Rx#:[id number] Narrative: GENERAL: in NAD, SKIN: Warm and dry. HEAD: Atraumatic. Normocephalic. EYES: Pupils equal and round. No scleral icterus. ENT: No nasal bleeding or discharge. Mucous membranes pink and moist. NECK: Trachea midline. No JVD. CARDIOVASCULAR: Regular rate and rhythm. RESPIRATORY: No accessory muscle use. GASTROINTESTINAL: Abdomen soft, non-tender, nondistended. MUSCULOSKELETAL: Extremities without clubbing, cyanosis, or edema. No obvious deformities. NEUROLOGICAL: Awake and alert. Oriented x3, no aphasia, fluent articulate, No facial asymmetry, OU 3-2mm, eomi, VFF, No drift, Motor grossly within normal limits. Five out of 5 muscle strength in the arms and legs. Tone normal in all 4 limbs, Sensory normal in all 4 extremities to pin, msr 1-2+ sym, no clonus, planterflexor, gait not assessed secondary to fall risk PSYCHIATRIC: Appropriate mood and affect; insight and judgment normal. - Constitutional no acute distress - Routine HEENT Exam Head: Present: normocephalic Results - Labs CBC & Chem 7: 06/01/18 09:50 06/01/18 09:50 Labs: Laboratory Results - last 24 hr 06/01/18 06/01/18 06/01/18 09:50 09:50 09:50 CBC w Diff Auto diff final WBC 9.6 RBC 4.39 Hgb 13.2 Hct 40.3 MCV 91.9 MCH 30.0 MCHC 32.6 RDW 13.9 Plt Count 231 MPV 8.7 Neut % (Auto) 76.1 H Lymph % (Auto) 9.3 [place] % (Auto) 8.4 H Eos % (Auto) 5.7 H Baso % (Auto) 0.5 Neut # (Auto) 7.4 Lymph # (Auto) 0.9 L [place] # (Auto) 0.8 Eos # (Auto) 0.5 H Baso # (Auto) 0.0 WBC Differential . Differential Comment . PT 9.9 INR 1.0 APTT 25.9 D-Dimer Quant (PE/DVT) 1.22 H Sodium 140 Potassium 3.9 Chloride 107 Carbon Dioxide 21.9 Anion Gap 11 BUN 32 H Creatinine 2.20 H Estimated GFR 21 L Random Glucose 172 H Calcium 8.4 L Magnesium 2.2 Total Bilirubin 0.7 AST 14 L ALT 16 Alkaline Phosphatase 56 Troponin I Less than 0.02 L B-Natriuretic Peptide Total Protein 6.7 Albumin 3.2 L Ur Collection Type Urine Color Urine Clarity Urine pH Ur Specific [place] Urine Protein Urine Glucose (UA) Urine Ketones Urine Occult Blood Urine Nitrate Urine Bilirubin Urine Urobilinogen Ur Leukocyte Esterase Urine RBC Urine WBC Ur Squamous Epith Cells Urine Bacteria Micro UA Comment Ur Microscopic Review Urine Culture Comments 06/01/18 06/01/18 09:50 11:25 CBC w Diff WBC RBC Hgb Hct MCV MCH MCHC RDW Plt Count MPV Neut % (Auto) Lymph % (Auto) [place] % (Auto) Eos % (Auto) Baso % (Auto) Neut # (Auto) Lymph # (Auto) [place] # (Auto) Eos # (Auto) Baso # (Auto) WBC Differential Differential Comment PT INR APTT D-Dimer Quant (PE/DVT) Sodium Potassium Chloride Carbon Dioxide Anion Gap BUN Creatinine Estimated GFR Random Glucose Calcium Magnesium Total Bilirubin AST ALT Alkaline Phosphatase Troponin I B-Natriuretic Peptide 66 Total Protein Albumin Ur Collection Type Clean catch Urine Color Yellow Urine Clarity Slightly cloudy Urine pH 6.0 Ur Specific [place] 1.020 Urine Protein Trace Urine Glucose (UA) Negative Urine Ketones Negative Urine Occult Blood Negative Urine Nitrate Negative Urine Bilirubin Negative Urine Urobilinogen 0.2 Ur Leukocyte Esterase Small H Urine RBC 0-3 Urine WBC 0-5 Ur Squamous Epith Cells 0-5 Urine Bacteria Many H Micro UA Comment Culture indicated Ur Microscopic Review Microscopic reviewed Urine Culture Comments Culture indicated - Imaging Impressions Head CT 06/01/18 10:05 CONCLUSION: 1. Negative noncontrast head CT. 2. Extensive mucosal thickening in the right maxillary sinus. . Chest X-Ray 06/01/18 10:06 CONCLUSION: No acute cardiopulmonary disease. Review/Management - Diagnosis (1) Syncope Code(s): R55 - Syncope and collapse Status: Acute Current Visit: Yes (2) Hypertension Code(s): I10 - Essential (primary) hypertension Status: Acute Current Visit : Yes (3) Anxiety Code(s): F41.9 - Anxiety disorder, unspecified Status: Acute Current Visit: Yes (4) Depression Code(s): F32.9 - Major depressive disorder, single episode, unspecified Status : Acute Current Visit: Yes - Review/Management Plan: 2017: mri/mra brain negative. carotid u/s negative. holter no significant arrhythmia. eeg nml recs repeat eeg mri/mra brain [place] telemetry cardio eval in vs outpatient d/c planning if above negative in am and f/u with us in the outpatient setting in 2-[address] Guerra no driving x 6 months (1) Syncope Qualifiers: Syncope type: unspecified Qualified Code(s): R55 - Syncope and collapse
[2018-06-01] MEDS: Insulin NovoLOG Aspart Correctional Sugar Inj SQ SCH ×2 (17:04→21:24)
[2018-06-01] MEDS ORDERED: Latanoprost 0.005% Opth Drops 2.5 ML Bottle EACH EYE SCH (18:00)
[2018-06-01 18:34] LABS: Thyroid Stimulating Hormone 2.16 uIU/mL (0.358-3.740)
[2018-06-01 20:32] VITALS: RESP 18
[2018-06-02 07:08] LABS: Calcium 7.7 mg/dL (8.5-10.1); Carbon Dioxide 18.5 meq/L (21.0-32.0); Potassium 3.8 meq/L (3.5-5.1)
[2018-06-02] MEDS: Insulin NovoLOG Aspart Correctional Sugar Inj SQ SCH ×2 (07:28→11:42)
[2018-06-02 08:00] VITALS: O2SAT 99
[2018-06-02] MEDS ORDERED: Isosorbide Mononitrate 30 MG ER 24HR Tablet (Imdur) PO SCH (09:00)
[2018-06-02] MEDS ORDERED: FLUoxetine 20 MG Capsule PO SCH (09:00)
[2018-06-02] MEDS: Sod Chloride 0.9% Inj 1,000 ML IV.CONT SCH (09:10)
--- NOTE | 2018-06-02 10:05 | P.PN ---
Subjective Interval history: Follow-up for syncope. Patient is currently doing well. She denies any chest pain, shortness of breath, fever or chills. No further episodes of syncope. She does admit to having multiple episodes in the last several years. She follows up with certified physician assistant Dr. Serna as well as field marketing director Dr. Sepulveda. Physical Exam Vital signs: Vital Signs 06/01/18 11:00 06/01/18 12:25 06/01/18 13:25 Temperature Pulse Rate 62 66 76 Respiratory Rate 16 16 16 Blood Pressure 147/80 H 122/54 L 156/80 H Pulse Oximetry 98 96 97 06/01/18 14:25 06/01/18 15:25 06/01/18 18:07 Temperature 97.2 F L Pulse Rate 64 62 60 Respiratory Rate 16 16 16 Blood Pressure 139/64 104/56 L 154/70 H Pulse Oximetry 97 98 100 06/01/18 20:00 06/02/18 00:04 06/02/18 04:00 Temperature 97.2 F L 96.5 F L Pulse Rate 65 68 58 L Respiratory Rate 18 18 Blood Pressure 120/69 133/69 Pulse Oximetry 99 94 L 06/02/18 07:59 06/02/18 09:08 Temperature 96.7 F L Pulse Rate 66 68 Respiratory Rate 18 Blood Pressure 172/67 H Pulse Oximetry 99 Intake & Output 06/01/18 06/02/18 06/02/18 18:59 06:59 18:59 Intake Total 600 / 600 1150 / 1150 1000 / 1000 Output Total 500 / 500 Balance 600 / 600 650 / 650 1000 / 1000 Weight 47 kg 52.2 kg Intake: IV 600 / 600 1000 / 1000 1000 / 1000 NS Inj 1,000 ML @ 100 mls/hr IV 1000 / 1000 1000 / 1000 .CONT .Q10H BRYAN Rx#:[id number] NS Inj 500 ML @ 1000 mls/hr IV. 500 / 500 SIG BOLUS BRYAN Rx#:[id number] Rocephin Inj 1,000 MG In NS Inj 100 / 100 100 ML @ 200 mls/hr IV.SIG ONCE ONE Rx#:[id number] Oral 150 / 150 Output: Urine 500 / 500 Other: Date of Last Bowel Movement 06/01/18 Weight On Admission 47.6 kg Narrative: GENERAL: Alert, oriented x3, NAD. SKIN: Warm and dry. HEAD: Normocephalic. EYES: No scleral icterus. No injection or drainage. NECK: Supple, trachea midline. No JVD or lymphadenopathy. CARDIOVASCULAR: Regular rate and rhythm without murmurs, gallops, or rubs. RESPIRATORY: Breath sounds equal bilaterally. No accessory muscle use. GASTROINTESTINAL: Abdomen soft, non-tender, nondistended. MUSCULOSKELETAL: No cyanosis, or edema. BACK: Nontender without obvious deformity. No CVA tenderness. Results - Labs CBC & Chem 7: 06/01/18 09:50 06/02/18 04:55 Laboratory Results - last 24 hr 06/01/18 06/01/18 06/01/18 09:50 09:50 09:50 CBC w Diff Auto diff final WBC 9.6 RBC 4.39 Hgb 13.2 Hct 40.3 MCV 91.9 MCH 30.0 MCHC 32.6 RDW 13.9 Plt Count 231 MPV 8.7 Neut % (Auto) 76.1 H Lymph % (Auto) 9.3 Carson % (Auto) 8.4 H Eos % (Auto) 5.7 H Baso % (Auto) 0.5 Neut # (Auto) 7.4 Lymph # (Auto) 0.9 L Carson # (Auto) 0.8 Eos # (Auto) 0.5 H Baso # (Auto) 0.0 WBC Differential . Differential Comment . PT 9.9 INR 1.0 APTT 25.9 D-Dimer Quant (PE/DVT) 1.22 H Sodium 140 Potassium 3.9 Chloride 107 Carbon Dioxide 21.9 Anion Gap 11 BUN 32 H Creatinine 2.20 H Estimated GFR 21 L POC Glucose Random Glucose 172 H Calcium 8.4 L Magnesium 2.2 Total Bilirubin 0.7 AST 14 L ALT 16 Alkaline Phosphatase 56 Troponin I Less than 0.02 L B-Natriuretic Peptide Total Protein 6.7 Albumin 3.2 L Vitamin B12 TSH Ur Collection Type Urine Color Urine Clarity Urine pH Ur Specific [place] Urine Protein Urine Glucose (UA) Urine Ketones Urine Occult Blood Urine Nitrate Urine Bilirubin Urine Urobilinogen Ur Leukocyte Esterase Urine RBC Urine WBC Ur Squamous Epith Cells Urine Bacteria Micro UA Comment Ur Microscopic Review Urine Culture Comments 06/01/18 06/01/18 06/01/18 09:50 09:50 11:25 CBC w Diff WBC RBC Hgb Hct MCV MCH MCHC RDW Plt Count MPV Neut % (Auto) Lymph % (Auto) Carson % (Auto) Eos % (Auto) Baso % (Auto) Neut # (Auto) Lymph # (Auto) Carson # (Auto) Eos # (Auto) Baso # (Auto) WBC Differential Differential Comment PT INR APTT D-Dimer Quant (PE/DVT) Sodium Potassium Chloride Carbon Dioxide Anion Gap BUN Creatinine Estimated GFR POC Glucose Random Glucose Calcium Magnesium Total Bilirubin AST ALT Alkaline Phosphatase Troponin I B-Natriuretic Peptide 66 Total Protein Albumin Vitamin B12 329 TSH 2.160 Ur Collection Type Clean catch Urine Color Yellow Urine Clarity Slightly cloudy Urine pH 6.0 Ur Specific [place] 1.020 Urine Protein Trace Urine Glucose (UA) Negative Urine Ketones Negative Urine Occult Blood Negative Urine Nitrate Negative Urine Bilirubin Negative Urine Urobilinogen 0.2 Ur Leukocyte Esterase Small H Urine RBC 0-3 Urine WBC 0-5 Ur Squamous Epith Cells 0-5 Urine Bacteria Many H Micro UA Comment Culture indicated Ur Microscopic Review Microscopic reviewed Urine Culture Comments Culture indicated 06/01/18 06/01/18 06/02/18 16:54 21:24 04:55 CBC w Diff WBC RBC Hgb Hct MCV MCH MCHC RDW Plt Count MPV Neut % (Auto) Lymph % (Auto) Carson % (Auto) Eos % (Auto) Baso % (Auto) Neut # (Auto) Lymph # (Auto) Carson # (Auto) Eos # (Auto) Baso # (Auto) WBC Differential Differential Comment PT INR APTT D-Dimer Quant (PE/DVT) Sodium 144 Potassium 3.8 Chloride 116 H D Carbon Dioxide 18.5 L Anion Gap 10 BUN 31 H Creatinine 1.80 H Estimated GFR 27 L POC Glucose 284 H 106 Random Glucose 185 H Calcium 7.7 L Magnesium Total Bilirubin AST ALT Alkaline Phosphatase Troponin I B-Natriuretic Peptide Total Protein Albumin Vitamin B12 TSH Ur Collection Type Urine Color Urine Clarity Urine pH Ur Specific [place] Urine Protein Urine Glucose (UA) Urine Ketones Urine Occult Blood Urine Nitrate Urine Bilirubin Urine Urobilinogen Ur Leukocyte Esterase Urine RBC Urine WBC Ur Squamous Epith Cells Urine Bacteria Micro UA Comment Ur Microscopic Review Urine Culture Comments 06/02/18 07:16 CBC w Diff WBC RBC Hgb Hct MCV MCH MCHC RDW Plt Count MPV Neut % (Auto) Lymph % (Auto) Carson % (Auto) Eos % (Auto) Baso % (Auto) Neut # (Auto) Lymph # (Auto) Carson # (Auto) Eos # (Auto) Baso # (Auto) WBC Differential Differential Comment PT INR APTT D-Dimer Quant (PE/DVT) Sodium Potassium Chloride Carbon Dioxide Anion Gap BUN Creatinine Estimated GFR POC Glucose 149 H Random Glucose Calcium Magnesium Total Bilirubin AST ALT Alkaline Phosphatase Troponin I B-Natriuretic Peptide Total Protein Albumin Vitamin B12 TSH Ur Collection Type Urine Color Urine Clarity Urine pH Ur Specific [place] Urine Protein Urine Glucose (UA) Urine Ketones Urine Occult Blood Urine Nitrate Urine Bilirubin Urine Urobilinogen Ur Leukocyte Esterase Urine RBC Urine WBC Ur Squamous Epith Cells Urine Bacteria Micro UA Comment Ur Microscopic Review Urine Culture Comments - Imaging Impressions Head CT 06/01/18 10:05 CONCLUSION: 1. Negative noncontrast head CT. 2. Extensive mucosal thickening in the right maxillary sinus. . Chest X-Ray 06/01/18 10:06 CONCLUSION: No acute cardiopulmonary disease. Assessment and Plan - Plan 82-year-old female with history of HTN, DM, CAD s/p stent x1, CVA without residual deficit, anxiety, presents with a syncopal episode today. Syncope/Dizziness: unclear etiology, possibly vertigo vs infection vs dehydration vs TIA/CVA. -Head CT reviewed, no acute findings -Checked orthostatics - unremarkable. -IVF hydration -Consult PT - no need for SNF. -Meclizine prn -Neuro checks, monitor on telemetry -Neurology consulted. Patient follows up with Dr. Bello. Neurology recommended MRI and MRA of the brain. GIACOMO: Cr 2.20, previously 1.5 on Jun 2017. Suspect secondary to dehydration. -Creatinine improved to 1.8. -Continue IVF hydration -Avoid nephrotoxins UTI: patient symptomatic with dysuria -UA with small leuks, many bacteria -Continue with IV rocephin CAD/HTN: Chronic. Patient follows with cardiology Dr. Serna. -holding patient's lasix and lisinopril secondary to GIACOMO -continue patient's imdur -monitor on telemetry -monitor BP, adjust antihypertensives Diabetes Mellitus: Chronic -no diabetic meds on home med list -monitor Accu-checks and cover with SSI DVT Prophylaxis: teds/SCDs Charge plan: After MRI studies, patient can likely go home and follow-up with her field marketing director Dr. Sepulveda. Patient will benefit from a loop recorder to detect any cardiac arrhythmia that would explain patient's syncope.
--- NOTE | 2018-06-02 11:00 | MR ---
EXAM DATE: 06/02/2018 10:46 AM EST AGE/SEX: 82 years / Female INDICATIONS: CVA. Syncope. CLINICAL DATA: This is the patient's subsequent encounter. Patient reports that signs and symptoms h ave been present for 2 days and indicates a pain score of 0/10. MEDICAL/SURGICAL HISTORY: Hypertension. Cardiovascular disease. Diabetes. CVA. Coronary art goran stent. Cholecystectomy. Umbilical hernia repair. Lumbar surgery. COMPARISON: [facility], MR HEAD W/O CONTRAST, 06/02/2018. . TECHNIQUE: 3D [id number] MRA was performed. Source images, multiplanar STS MIP, and 3D volum e MIP reconstructions were reviewed. FINDINGS: There is excellent visualization of the major intracranial arteries out to the second-order branch ve ssels. Mild generalized luminal irregularity is identified. There are no steno-occlusive changes. There is n o evidence of aneurysm or vascular displacement. CONCLUSION: 1. Generalized luminal irregularity characteristic of atherosclerotic disease. 2. No evidence of significant steno-occlusive disease, aneurysm, vascular malformation or vasculopat hy. Electronically signed by: Richardson Mccallum MD 06/02/2018 10:59 AM EST
--- NOTE | 2018-06-02 11:04 | MR ---
EXAM DATE: 06/02/2018 10:50 AM EST AGE/SEX: 82 years / Female INDICATIONS: CVA. Syncope. CLINICAL DATA: This is the patient's subsequent encounter. Patient reports that signs and symptoms h ave been present for 2 days and indicates a pain score of 0/10. MEDICAL/SURGICAL HISTORY: Hypertension. Cardiovascular disease. Diabetes. CVA. Coronary art goran stent. Cholecystectomy. Umbilical hernia repair. Lumbar surgery. COMPARISON: [facility], MRA HEAD W/O CONTRAST, 06/02/2018. . TECHNIQUE: Multiplanar, multisequence examination of the brain was performed without contrast. FINDINGS: Cerebrum: The ventricles are normal for age. No evidence of midline shift, mass lesion, hemorrhage or acute infarction. No extraaxial fluid collections are seen. The pituitary gland and suprasellar cistern are normal in configuration. White Matter: A moderate-sized T2 hyperintense focus is identified in the deep white matter along th e border of the left frontal and parietal lobes. There is faint restricted diffusion. There is no stacy dence of mass effect or hemorrhage. No other significant cerebral white matter changes are noted. Posterior Fossa: The cerebellum and brainstem are intact. The 4th ventricle is midline. The cerebel lopontine angle is unremarkable. The cerebellar tonsils are normal in position. Diffusion Imaging: No focal areas of restricted diffusion are seen. No evidence of acute infarction . Extracranial: The visualized portions of the orbits and paranasal sinuses are unremarkable. CONCLUSION: 1. T2 hyperintense focus in the left frontoparietal region with very faint restricted diffusion whic h may represent a subacute infarct. 2. No findings characteristic of an acute infarct, hemorrhage, mass or edema. Electronically signed by: Richardson Mccallum MD 06/02/2018 11:02 AM EST
--- NOTE | 2018-06-02 11:34 | US ---
EXAM DATE: 06/02/2018 11:25 AM EST AGE/SEX: 82 years / Female INDICATIONS: Syncope and dizziness. CLINICAL DATA: This is the patient's initial encounter. Patient reports that signs and symptoms have been present for 1 day and indicates a pain score of 8/10. MEDICAL/SURGICAL HISTORY: Hypertension. Diabetes. Coronary artery stent. Gastric bypass. Cho lecystectomy. Hernia repair. Lumbar surgery. [place] [facility] [place]. . VELOCITY PARAMETERS: ICA/CCA Ratio: Right 1.6 , Left 1.2 ICA: Right 110 cm/sec, Left 106 cm/sec CCA: Right 69 cm/sec, Left 87 cm/sec ECA: Right 105 cm/sec, Left 94 cm/sec Vertebral: Right 84 cm/sec antegrade, Left 20 cm/sec antegrade FINDINGS: Right Carotid: Intimal thickening and mild plaque is visualized.The waveforms are within normal limi ts. Left Carotid: Intimal thickening and mild plaque is visualized. The waveforms are within normal limi ts. Other: None. CONCLUSION: 1. Right Internal Carotid Artery: No significant stenosis; mild atherosclerotic plaque is visualized . 2. Left Internal Carotid Artery: No significant stenosis; mild atherosclerotic plaque is visualized. 3. Antegrade flow in the vertebral arteries. Electronically signed by: Richardson Mccallum MD 06/02/2018 11:32 AM EST
[2018-06-02 11:42] VITALS: BP 133/61; TEMP 97.3
[2018-06-02 13:28] VITALS: PULSE 73
--- NOTE | 2018-06-02 14:19 | MG ---
cc: Julien Van MD, PhD TEST NUMBER: [id number] TECHNIQUE: 17-channel EEG. DESCRIPTION: Background rhythm reveals symmetrical alpha frequency, 8 Hz, amplitude 20 microvolts. There is some muscle artifact. There are no lateralizing features identified. No epileptic features are seen. There is a lot of muscle artifact in the left, but no seizure activity. Photic is normal. INTERPRETATION: Normal electroencephalogram. Julien Van MD, PhD REGINA/ct , 02:05 PM , 02:11 PM
== END 2018-06-02 14:30 | disposition home or self-care (01) ==
LOC: PHEDA 09:27 → PHED 09:27 → PHEDA 15:40 → PH3 15:41
PROVIDERS: ADMIT Hospitalist; ATTEND Hospitalist